=== PATIENT | female | born 1940 | race Caucasian/White ===

== ENCOUNTER → 2016-11-06 | Outpatient (CLI) | payer BC ==
[~2016-11-06] MED LIST: BONE PO; CAT PO; FORMULA 303 PO; HYG25 PO; JOINT EFFORT PO; LEVO50TA PO; MENT4GEL EXT; PUMP1CAP PO; TURM1POW PO; [UNRECOGNIZED DRUG - OTHER] PO
[2016-11-06 18:42] LABS: BLOOD UREA NITROGEN 19 mg/dl (7-18); CALCIUM 9.3 mg/dl (8.5-10.1); CARBON DIOXIDE 32 mmol/L (21-32); CHLORIDE 97 mmol/L (98-107); CREATININE 0.65 mg/dl (0.60-1.20); GLUCOSE 97 mg/dl (70-99); POTASSIUM 3.6 mmol/L (3.5-5.1); SODIUM 134 mmol/L (136-145)
[2016-11-06 18:53] LABS: CHOLESTEROL 242 mg/dl (0-200); CHOLESTEROL/HDL RATIO 3.2; HDL CHOLESTEROL 76 mg/dl; LDL CHOLESTEROL CALCULATED 138 mg/dl; TRIGLYCERIDES 139 mg/dl (0-150); VERY LOW DENSITY LIPOPROT CALC 28 mg/dl
== END | disposition home or self-care (01) ==
LOC: C.LABPVFM 15:43
PROVIDERS: ATTEND Nurse Practitioner
DX: I10 Essential (primary) hypertension (principal); E03.9 Hypothyroidism, unspecified; E78.5 Hyperlipidemia, unspecified

== ENCOUNTER → 2017-04-15 | Outpatient (CLI) | payer BC ==
--- NOTE | 2017-04-16 13:55 | MAMMOGRAPHY REPORT ---
BILATERAL DIGITAL SCREENING MAMMOGRAM WITH CAD: 04/15/2017 CLINICAL HISTORY: Routine screening. Patient has no complaints. TECHNIQUE: Current study was also evaluated with a Computer Aided Detection (CAD) system. COMPARISON: Comparison is made to exams dated: 04/14/2016 mammogram, 03/15/2015 mammogram, 02/03/2014 ma mmogram, 02/02/2013 mammogram, 01/26/2012 mammogram, and 01/22/2011 mammogram - [facility] nter. BREAST COMPOSITION: The tissue of both breasts is heterogeneously dense, which may obscure small mas ses. FINDINGS: No suspicious masses, calcifications, or areas of architectural distortion are noted in ei ther breast. There has been no significant interval change compared to prior exams. Bilateral benign -appearing calcifications are not significantly changed. Asymmetry in the right medial breast middle depth on the CC view is similar to prior exams including the 2008 exam, and considered benign given long-term stability. IMPRESSION: ACR BI-RADS CATEGORY 2: BENIGN There is no mammographic evidence of malignancy. A 1 year screening mammogram is recommended. The pa tient will receive written notification of the results. Approximately 10% of breast cancers are not detected with mammography. A negative mammographic report should not delay biopsy if a clinically suggestive mass is present. Paula Mensah M.D. ah/:04/15/2017 15:01:13 Engineer Technician: Samaria LOVE(Vini)(Ting)(BD), [facility] letter sent: Normal 1/2 BI-RADS Code: ACR BI-RADS Category 2: Benign
== END | disposition home or self-care (01) ==
LOC: C.MAMM 14:27
PROVIDERS: ATTEND Nurse Practitioner
DX: Z12.31 Encounter for screening mammogram for malignant neoplasm of breast (principal)

== ENCOUNTER → 2017-06-08 | Outpatient (CLI) | payer BC ==
[2017-06-08 17:48] LABS: BLOOD UREA NITROGEN 14 mg/dl (7-18); BUN/CREATININE RATIO 22.8 (10-20); CALCIUM 8.9 mg/dl (8.5-10.1); CARBON DIOXIDE 31 mmol/L (21-32); CHLORIDE 95 mmol/L (98-107); GLUCOSE 105 mg/dl (70-99); POTASSIUM 3.3 mmol/L (3.5-5.1); SODIUM 131 mmol/L (136-145)
== END | disposition home or self-care (01) ==
LOC: C.LABPVFM 14:39
PROVIDERS: ATTEND Nurse Practitioner
DX: E87.6 Hypokalemia (principal)

== ENCOUNTER → 2017-06-30 | Outpatient (CLI) | payer BC ==
[2017-06-30 17:47] LABS: BLOOD UREA NITROGEN 16 mg/dl (7-18); CALCIUM 9.3 mg/dl (8.5-10.1); CARBON DIOXIDE 31 mmol/L (21-32); CREATININE 0.56 mg/dl (0.60-1.20); GLUCOSE 104 mg/dl (70-99); POTASSIUM 3.5 mmol/L (3.5-5.1); SODIUM 128 mmol/L (136-145)
== END | disposition home or self-care (01) ==
LOC: C.LABPVFM 14:40
PROVIDERS: ATTEND Nurse Practitioner
DX: E87.6 Hypokalemia (principal); E87.1 Hypo-osmolality and hyponatremia

== ENCOUNTER → 2017-09-21 | Outpatient (CLI) | payer BC ==
[2017-09-21 18:23] LABS: BLOOD UREA NITROGEN 12 mg/dl (7-18); CALCIUM 9.1 mg/dl (8.5-10.1); CARBON DIOXIDE 31 mmol/L (21-32); GLUCOSE 98 mg/dl (70-99); POTASSIUM 3.5 mmol/L (3.5-5.1); SODIUM 130 mmol/L (136-145)
== END | disposition home or self-care (01) ==
LOC: C.LABPVFM 14:49
PROVIDERS: ATTEND Nurse Practitioner
DX: E87.1 Hypo-osmolality and hyponatremia (principal)

== ENCOUNTER → 2017-12-01 | Outpatient (CLI) | payer BC ==
[2017-12-01 17:55] LABS: BLOOD UREA NITROGEN 14 mg/dl (7-18); CARBON DIOXIDE 31 mmol/L (21-32); CREATININE 0.62 mg/dl (0.60-1.20); GLUCOSE 99 mg/dl (70-99); POTASSIUM 3.7 mmol/L (3.5-5.1); SODIUM 133 mmol/L (136-145)
== END | disposition home or self-care (01) ==
LOC: C.LABPVFM 15:02
PROVIDERS: ATTEND Nurse Practitioner
DX: I10 Essential (primary) hypertension (principal); E87.1 Hypo-osmolality and hyponatremia

== ENCOUNTER 2019-11-10 18:42 | Inpatient (IN) ==
--- NOTE | 2019-11-10 19:25 | Emergency Department Note ---
Impression & Plan CHF (congestive heart failure), Hyponatremia, Elevated troponin, Elevated brain natriuretic peptide (BNP) level, Complete left bundle branch block, Hypokalemia, Hypomagnesemia ED Provider Note NAME: BRANDEE MELVIN AGE: 78 SEX: F ARRIVES VIA: Walk-In INFORMANT: Patient, ED PROVIDER(S): Ba Ngo MD CHIEF COMPLAINT: Shortness of breath PLAN: Disposition: Admit MEDICAL DECISION MAKING: The patient is a pleasant 78-year-old woman with a past medical history of hypertension, hypothyroidism who presents emergency department with worsening shortness of breath over the past several days in the setting of feeling as though her legs are more swollen. The patient denies any recent new cough or congestion but does report chronic nasal congestion and postnasal drip since having her flu immunization in April. She denies any travel to high risk areas or contact with known individuals diagnosed with COVID-19. She denies any chest pain. Denies nausea vomiting. She does report some improving loose s tools which occurred after completing a course of amoxicillin for her sinuses. On arrival the patient is in no acute distress, afebrile stable vital signs. She has scant bilateral lower extremity edema. Calves are nontender bilaterally. EKG demonstrates a left bundle branch block with a QRS of 130, no Sgarbossa Criteria, which appears new and has progressed since September 13, 2019 when she did have some conduction delay with a QRS of 112. Chest x-ray demonstrates mild cardiomegaly with mild congestive failure and small bilateral pleural effusions. WBC within normal limits. H/H 11.5/31.5 decreased from previous value values on September 13, 2019 of 13.1/37.7 likely related to component of volume overload. Platelets 425, nonspecific and likely reactive. Sodium 120 which does appear new for the patient. Serum and urine osmole's were ordered and pending however suspect component of hypervolemic hyponatremia. Potassium 3.1 with repletion provided. Magnesium 1.7 with repletion provided. Check lites and LFTs otherwise unremarkable. Patient's troponin is elevated at 0.067 without prior values for comparison. BNP 8600 without prior values for comparison. Symptoms suggestive of new CHF. Patient was ordered Aspirin as well as for Lasix to help with symptoms of dyspnea. Case was discussed with Dr. Tadeo, [facility] admitting resident with Dr. Viramontes, [facility] hospitalist, who will evaluate the patient for admission. Triage Nursing notes reviewed and agree them. Prior medical records reviewed Vital Signs: reviewed and remarkable for no significant abnormalities Differential diagnosis: Reactive airway disease, pneumonia, pneumothorax, COPD, CHF, infections, cardiac ischemia, pulmonary embolism, musculoskeletal, gastrointestinal, as well as other pathologies. ER treatment provided: See below Diagnostics interpreted by me: ECG: Sinus rhythm with sinus arrhythmia, 99 bpm, no ectopy. Left bundle branch block with a QRS of 130, no Sgarbossa Criteria, which appears new and has progressed since September 13, 2019 when she did have some conduction delay with a QRS of 112. Cardiac Monitoring: An order for continuous cardiac monitoring was placed and demonstrated sinus rhythm with sinus arrhythmia, 99 bpm, no ectopy. Laboratory studies: See below Imaging studies: XR chest 1V portable CLINICAL HISTORY: Chest Pain dyspnea COMPARISON STUDY: 09/13/2019 FINDINGS: Mild cardiomegaly. Components of congestive heart failure. Small bilateral pleural effusions. Thoracic scoliosis. Severe degenerative change of the shoulders bilaterally. IMPRESSION: Congestive heart failure. Small bilateral pleural effusions. Consultation(s): Case was discussed with Dr. Tadeo, [facility] admitting resident with Dr. Viramontes, [facility] hospitalist, who will evaluate the patient for admission. HPI: The patient is a pleasant 78-year-old woman with a past medical history of hypertension, hypothyroidism who presents emergency department with worsening shortness of breath over the past several days in the setting of feeling as though her legs are more swollen. The patient denies any recent new cough or congestion but does report chronic nasal congestion and postnasal drip since having her flu immunization in April. She denies any travel to high risk areas or contact with known individuals diagnosed with COVID-19. She denies any chest pain. Denies nausea vomiting. She does report some improving loose stools which occurred after completing a course of amoxicillin for her sinuses. O ROS: See above HPI for pertinent positives & negatives. A total of 10 systems reviewed and were otherwise negative. PAST MEDICAL HISTORY:See Below PAST SURGICAL HISTORY:See Below FAMILY HISTORY:See Below SOCIAL HISTORY:See Below HOME MEDICATIONS:See Below ALLERGIES:See Below VITALS:See Below PHYSICAL EXAMINATION: GENERAL: Awake, alert, fatigued-appearing, in no distress HENT: Normocephalic, atraumatic. Oropharynx with dry mucous membranes and otherwise unremarkable. EYES: Normal conjunctiva. Sclera non-icteric. NECK: Supple. No nuchal rigidity. FROM. Mild JVD. RESPIRATORY: Mildly dyspneic but normal work of breathing. Diminished breath sounds at the bases and otherwise clear to auscultation bilaterally. CARDIAC: Regular rate, normal rhythm. Extremities warm and well perfused. Pulses equal. ABDOMEN: Soft, non-distended. No tenderness to palpation. No rebound or guarding. No masses. RECTAL: Deferred. MUSCULOSKELETAL: Chest examination reveals no tenderness. The back is symmetrical on inspection without obvious abnormality. There is no CVA tenderness to palpation. No joint edema. LOWER EXTREMITIES: Calves are equal size bilaterally and non-tender. Scant BLE edema. No discoloration. NEURO: Normal sensorium. No sensory or motor deficits noted. SKIN: No rash or jaundice noted. ED COURSE: Critical Care: I have personally spent greater than 35 minutes of critical care time in the direct management of this patient. This includes bedside care, interpretation of diagnostic studies, and testing, discussion with consultants, patient, and family members, and other required patient management activities. This 35 minutes is in excess of all separately billable procedures. Ba Ngo MD Past Med/Surg History Medical History Anterior dislocation of lens, left eye (Resolved) scheduled for lens exchange and Re fixation of a lens in the left eye (scheduled 09/22/19, Dr. Chilel, [facility]) Hypertension Hyponatremia chronic, baseline sodium low 130's- PCP aware/feel related to chlorthalidone and supplements but d/t multiple allergies will continue with chlorthalidone and monitor hyponatremia Osteoarthritis Personal history of poliomyelitis age 12 Urinary incontinence Surgical History History of cataract surgery left Hx of eye surgery to have eye surgery for lens replacement on 09/22/[address] [facility]. 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 Beliefs That Will Affect Care: None marital status: Single Current Living Situation: Family current occupational status: retired Feels Safe at Home: Yes Safety Concerns: Feels Safe At This Time Smoking Status: Never smoker Second Hand Exposure: No ; Hx Alcohol Use: No Hx Substance Use: No caffeine: Yes Dental Care, Regularly: Yes Physical Activity Frequency: Does not Exercise Seatbelt Use: always Sunscreen Use: No Allergies Allergies Allergy/AdvReac Type Severity Reaction Status Date / Time acetaminophen Allergy Unknown DIZZINESS/D Verified 11/10/19 19:42 IAPHORETIC amlodipine Allergy Unknown SWOLLEN Verified 11/10/19 19:42 LEGS clonidine Allergy Unknown "VARIETY Verified 11/10/19 19:42 OF COMPLICATIONS" latex Allergy Unknown RASH Verified 11/10/19 19:42 losartan Allergy Unknown "MULTIPLE Verified 11/10/19 19:42 PROBLEMS" spironolactone Allergy Unknown "MULTIPE Verified 11/10/19 19:42 PROBLEMS", COULD NOT TOLERATE terazosin Allergy Unknown SWOLLEN Verified 11/10/19 19:42 LEGS hydrochlorothiazide AdvReac Unknown "COULD NOT Verified 11/10/19 19:42 TOLERATE" metoprolol AdvReac Unknown COULD NOT Verified 11/10/19 19:42 TOLERATE Sulfa (Sulfonamide AdvReac Unknown "COULD NOT Verified 11/10/19 19:42 Antibiotics) TOLERATE" Home Meds Home Medications Medication Instructions Recorded Confirmed calcium-vits R7-R-S3-minerals 2 tab PO BID 09/12/19 11/10/19 [Bone Essentials] cannabidiol 15 mg PO DAILY PRN 09/12/19 11/10/19 [id number] 1 drp OPHTHALMIC (EYE) UD PRN 09/12/19 11/10/19 [Refresh Optive Advanced] levothyroxine [Synthroid] 75 mcg PO HS 09/12/19 11/10/19 lutein-zeaxanthin 1 cap PO DAILY 09/12/19 11/10/19 phenylephrine-acetaminophen [Sinus 1 tab PO UD PRN 09/12/19 11/10/19 Relief (Non-Drowsy)] cranberry 1 tab PO DAILY 09/13/19 11/10/19 selenium 1 tab PO DAILY 09/13/19 11/10/19 Cold Eeze Tramaine 1 tramaine PO UD PRN 11/10/19 11/10/19 biotin 0 mg PO DAILY 11/10/19 11/10/19 chlorthalidone 25 mg PO BID 11/10/19 11/10/19 potassium chloride 10 meq PO DAILY 11/10/19 11/10/19 Previous Rx's Medication Instructions Recorded amoxicillin 500 mg tablet 2,000 mg PO ONCE PRN #4 tab 05/09/19 walker #1 ea 05/10/19 Results & Data (ED) Vital Signs Vital Signs - 24 hr 11/10/19 18:45 11/10/19 19:35 11/10/19 19:37 Temperature 36.7 C Temperature Source Oral Pulse Rate 108 H 96 H Pulse Rate from SpO2 Sensor 96 H Pulse Rhythm Regular Pulse Strength Normal Respiratory Rate 20 21 Respiratory Effort / Characteristics Short of Breath Non-Labored Respiratory Depth Normal Normal Respiratory Pattern Regular Regular Blood Pressure 168/94 H 145/90 H Blood Pressure Mean 118 109 Blood Pressure Position Sitting Pulse Oximetry 94 95 94 Oxygen Delivery Method Room Air Room Air Room Air Sepsis Recent Fever Within 48 Hours No Sepsis Action Taken by Nursing No Action Required 11/10/19 19:39 11/10/19 20:00 11/10/19 20:01 Temperature Temperature Source Pulse Rate 96 H 96 H Pulse Rate from SpO2 Sensor 98 H 98 H Pulse Rhythm Pulse Strength Respiratory Rate 22 22 Respiratory Effort / Characteristics Respiratory Depth Respiratory Pattern Blood Pressure 119/95 Blood Pressure Mean 102 Blood Pressure Position Pulse Oximetry 94 96 96 Oxygen Delivery Method Room Air Room Air Sepsis Recent Fever Within 48 Hours Sepsis Action Taken by Nursing 11/10/19 20:30 11/10/19 21:00 11/10/19 21:30 Temperature Temperature Source Pulse Rate 107 H 99 H 95 H Pulse Rate from SpO2 Sensor 97 H Pulse Rhythm Pulse Strength Respiratory Rate 20 27 H 24 Respiratory Effort / Characteristics Respiratory Depth Respiratory Pattern Blood Pressure 148/100 H 169/112 H 163/100 H Blood Pressure Mean 124 118 111 Blood Pressure Position Pulse Oximetry 93 92 94 Oxygen Delivery Method Room Air Room Air Room Air Sepsis Recent Fever Within 48 Hours Sepsis Action Taken by Nursing 11/10/19 22:00 Temperature Temperature Source Pulse Rate 94 H Pulse Rate from SpO2 Sensor 94 H Pulse Rhythm Pulse Strength Respiratory Rate 22 Respiratory Effort / Characteristics Respiratory Depth Respiratory Pattern Blood Pressure 154/100 H Blood Pressure Mean 126 Blood Pressure Position Pulse Oximetry 95 Oxygen Delivery Method Room Air Sepsis Recent Fever Within 48 Hours Sepsis Action Taken by Nursing Laboratory Data Attestation: I reviewed the patient's lab results. Result diagrams: 11/10/19 19:23 11/10/19 19:23 Lab Results 11/10/19 11/10/19 11/10/19 Range/Units 19:23 19:23 19:23 WBC 5.34 (4.8-10.8) K/uL RBC 3.72 L (4.2-5.4) M/uL Hgb 11.5 L (12.0-16.0) g/dL Hct 31.5 L (37-47) % MCV 84.7 (80-100) fL MCH 30.9 (25-34) pg MCHC 36.5 H (32-36) g/dL RDW Std Deviation 40.1 (36.4-46.3) fL RDW Coeff of Bairon 13.1 (11.5-14.5) % Plt Count 425 H (130-400) K/uL MPV 9.5 (7.4-10.4) fL Immature Gran % (Auto) 0.2 % Neut % (Auto) 79.1 % Lymph % (Auto) 10.7 % Jennings % (Auto) 9.2 % Eos % (Auto) 0.6 % Baso % (Auto) 0.2 % Immature Gran # (Auto) 0.01 (0.00-0.02) K/uL Neut # (Auto) 4.23 (1.4-6.5) K/uL Lymph # (Auto) 0.57 L (1.2-3.4) K/uL Jennings # (Auto) 0.49 (0.11-0.59) K/uL Eos # (Auto) 0.03 (0-0.5) K/uL Baso # (Auto) 0.01 (0-0.2) K/uL PT 11.4 (9.0-12.0) Seconds INR 1.1 (0.9-1.1) APTT 26.5 (21.0-31.0) Seconds PTT Ratio 0.9 Sodium 120 L (136-145) mmol/L Potassium 3.1 L (3.5-5.1) mmol/L Chloride 84 L (98-107) mmol/L Carbon Dioxide 24 (21-32) mmol/L Anion Gap 12.0 H (3-11) BUN 14 (7-18) mg/dl Creatinine 0.45 L (0.6-1.2) mg/dl Est Cr Clr Drug Dosing Not Reportable Est GFR ( Amer) 112.0 Est GFR (Non-Af Amer) 96.7 BUN/Creatinine Ratio 31.3 H (10-20) Glucose 116 H (70-99) mg/dl Osmolality (280-300) mOsm/kg Calcium 8.9 (8.5-10.1) mg/dl Phosphorus 3.2 (2.5-4.9) mg/dl Magnesium 1.7 L (1.8-2.4) mg/dl Total Bilirubin 0.3 (0.2-1) mg/dl AST 28 (15-37) U/L ALT 29 (12-78) U/L Alkaline Phosphatase 72 (45-117) U/L Troponin I 0.067 H* (0-0.045) ng/ml NT-Pro-B Natriuret Pep 8696 H (0-1800) pg/ml Total Protein 6.6 (6.4-8.2) gm/dl Albumin 2.9 L (3.4-5.0) gm/dl Globulin 3.7 (2.5-4.0) gm/dl Albumin/Globulin Ratio 0.8 L (0.9-2) Lipase 52 L (73-393) U/L TSH 4.880 H (0.300-4.500) uIu/ml Free T4 2.03 H (0.8-1.6) ng/dl Urine Color Urine Appearance (Clear) Urine pH (4.5-7.5) Ur Specific [place] (1.000-1.030) Urine Protein (Negative) Urine Glucose (UA) (Negative) Urine Ketones (Negative) Urine Blood (Negative) Urine Nitrite (Negative) Urine Bilirubin (Negative) Urine Urobilinogen (Negative) Ur Leukocyte Esterase (Negative) Urine WBC (Auto) (0-5) /hpf Urine RBC (Auto) (0-4) /hpf U Hyaline Cast (Auto) (0-5) /lpf U Epithel Cells (Auto) (0-5) /lpf Urine Bacteria (Auto) (Negative) Urine Osmolality (500-800) mOsm/kg Ur Random Sodium mmol/L 11/10/19 11/10/19 11/10/19 Range/Units 19:38 20:41 20:41 WBC (4.8-10.8) K/uL RBC (4.2-5.4) M/uL Hgb (12.0-16.0) g/dL Hct (37-47) % MCV (80-100) fL MCH (25-34) pg MCHC (32-36) g/dL RDW Std Deviation (36.4-46.3) fL RDW Coeff of Bairon (11.5-14.5) % Plt Count (130-400) K/uL MPV (7.4-10.4) fL Immature Gran % (Auto) % Neut % (Auto) % Lymph % (Auto) % Jennings % (Auto) % Eos % (Auto) % Baso % (Auto) % Immature Gran # (Auto) (0.00-0.02) K/uL Neut # (Auto) (1.4-6.5) K/uL Lymph # (Auto) (1.2-3.4) K/uL Jennings # (Auto) (0.11-0.59) K/uL Eos # (Auto) (0-0.5) K/uL Baso # (Auto) (0-0.2) K/uL PT (9.0-12.0) Seconds INR (0.9-1.1) APTT (21.0-31.0) Seconds PTT Ratio Sodium (136-145) mmol/L Potassium (3.5-5.1) mmol/L Chloride (98-107) mmol/L Carbon Dioxide (21-32) mmol/L Anion Gap (3-11) BUN (7-18) mg/dl Creatinine (0.6-1.2) mg/dl Est Cr Clr Drug Dosing Est GFR ( Amer) Est GFR (Non-Af Amer) BUN/Creatinine Ratio (10-20) Glucose (70-99) mg/dl Osmolality 252 L (280-300) mOsm/kg Calcium (8.5-10.1) mg/dl Phosphorus (2.5-4.9) mg/dl Magnesium (1.8-2.4) mg/dl Total Bilirubin (0.2-1) mg/dl AST (15-37) U/L ALT (12-78) U/L Alkaline Phosphatase (45-117) U/L Troponin I (0-0.045) ng/ml NT-Pro-B Natriuret Pep (0-1800) pg/ml Total Protein (6.4-8.2) gm/dl Albumin (3.4-5.0) gm/dl Globulin (2.5-4.0) gm/dl Albumin/Globulin Ratio (0.9-2) Lipase (73-393) U/L TSH (0.300-4.500) uIu/ml Free T4 (0.8-1.6) ng/dl Urine Color Yellow Urine Appearance Cloudy A (Clear) Urine pH 8.0 H (4.5-7.5) Ur Specific [place] 1.013 (1.000-1.030) Urine Protein Negative (Negative) Urine Glucose (UA) Negative (Negative) Urine Ketones Negative (Negative) Urine Blood Negative (Negative) Urine Nitrite Negative (Negative) Urine Bilirubin Negative (Negative) Urine Urobilinogen Negative (Negative) Ur Leukocyte Esterase Negative (Negative) Urine WBC (Auto) 1-5 (0-5) /hpf Urine RBC (Auto) 0-4 (0-4) /hpf U Hyaline Cast (Auto) 1-5 (0-5) /lpf U Epithel Cells (Auto) 10-20 H (0-5) /lpf Urine Bacteria (Auto) Negative (Negative) Urine Osmolality 278 L (500-800) mOsm/kg Ur Random Sodium mmol/L 04/30/20 Range/Units 20:41 WBC (4.8-10.8) K/uL RBC (4.2-5.4) M/uL Hgb (12.0-16.0) g/dL Hct (37-47) % MCV (80-100) fL MCH (25-34) pg MCHC (32-36) g/dL RDW Std Deviation (36.4-46.3) fL RDW Coeff of Bairon (11.5-14.5) % Plt Count (130-400) K/uL MPV (7.4-10.4) fL Immature Gran % (Auto) % Neut % (Auto) % Lymph % (Auto) % Jennings % (Auto) % Eos % (Auto) % Baso % (Auto) % Immature Gran # (Auto) (0.00-0.02) K/uL Neut # (Auto) (1.4-6.5) K/uL Lymph # (Auto) (1.2-3.4) K/uL Jennings # (Auto) (0.11-0.59) K/uL Eos # (Auto) (0-0.5) K/uL Baso # (Auto) (0-0.2) K/uL PT (9.0-12.0) Seconds INR (0.9-1.1) APTT (21.0-31.0) Seconds PTT Ratio Sodium (136-145) mmol/L Potassium (3.5-5.1) mmol/L Chloride (98-107) mmol/L Carbon Dioxide (21-32) mmol/L Anion Gap (3-11) BUN (7-18) mg/dl Creatinine (0.6-1.2) mg/dl Est Cr Clr Drug Dosing Est GFR ( Amer) Est GFR (Non-Af Amer) BUN/Creatinine Ratio (10-20) Glucose (70-99) mg/dl Osmolality (280-300) mOsm/kg Calcium (8.5-10.1) mg/dl Phosphorus (2.5-4.9) mg/dl Magnesium (1.8-2.4) mg/dl Total Bilirubin (0.2-1) mg/dl AST (15-37) U/L ALT (12-78) U/L Alkaline Phosphatase (45-117) U/L Troponin I (0-0.045) ng/ml NT-Pro-B Natriuret Pep (0-1800) pg/ml Total Protein (6.4-8.2) gm/dl Albumin (3.4-5.0) gm/dl Globulin (2.5-4.0) gm/dl Albumin/Globulin Ratio (0.9-2) Lipase (73-393) U/L TSH (0.300-4.500) uIu/ml Free T4 (0.8-1.6) ng/dl Urine Color Urine Appearance (Clear) Urine pH (4.5-7.5) Ur Specific [place] (1.000-1.030) Urine Protein (Negative) Urine Glucose (UA) (Negative) Urine Ketones (Negative) Urine Blood (Negative) Urine Nitrite (Negative) Urine Bilirubin (Negative) Urine Urobilinogen (Negative) Ur Leukocyte Esterase (Negative) Urine WBC (Auto) (0-5) /hpf Urine RBC (Auto) (0-4) /hpf U Hyaline Cast (Auto) (0-5) /lpf U Epithel Cells (Auto) (0-5) /lpf Urine Bacteria (Auto) (Negative) Urine Osmolality (500-800) mOsm/kg Ur Random Sodium 29 mmol/L Administered Medications Magnesium Oxide (Mag-Ox) 400 mg PO BID AYO Stop: 12/10/19 23:44 Last Admin: 11/11/19 00:38 Dose: 400 mg Documented by: [id number] Discontinued Medications Aspirin (Aspirin) 324 mg PO NOW STA Stop: 11/10/19 20:40 Last Admin: 11/10/19 21:02 Dose: 324 mg Documented by: [id number] Furosemide (Lasix) 20 mg IV NOW STA Stop: 11/10/19 20:44 Last Admin: 11/10/19 22:17 Dose: 20 mg Documented by: [id number] Potassium Chloride (K Randall / Wtr) 10 meq in 100 mls @ 100 mls/hr IV Q1H AYO Stop: 11/10/19 22:44 Last Infusion: 11/10/19 23:10 Dose: 0 mls/hr Documented by: [id number] Admin: 11/10/19 22:02 Dose: 100 mls/hr Documented by: [id number] Infusion: 11/10/19 22:01 Dose: 0 mls/hr Documented by: [id number] Admin: 11/10/19 21:05 Dose: 100 mls/hr Documented by: [id number] Magnesium Sulfate/Dextrose (Magnesium Sulfate / D5w) 1 gm in 100 mls @ 100 mls/hr IV Q1H AYO Stop: 11/10/19 22:44 Last Infusion: 11/10/19 23:10 Dose: 0 mls/hr Documented by: [id number] Admin: 11/10/19 22:03 Dose: 100 mls/hr Documented by: [id number] Infusion: 11/10/19 22:02 Dose: 0 mls/hr Documented by: [id number] Admin: 11/10/19 21:05 Dose: 100 mls/hr Documented by: [id number] Furosemide 40 mg/ Syringe 4 mls @ 4 mls/min IV NOW STA Stop: 11/10/19 23:35 Last Admin: 11/11/19 00:38 Dose: 4 mls/min Documented by: [id number] Lorazepam (Ativan) 0.5 mg PO NOW STA Stop: 11/11/19 01:05 Last Admin: 11/11/19 01:45 Dose: 0.5 mg Documented by: [id number] Lorazepam (Ativan) Confirm Administered Dose 0.5 mg .ROUTE .STK-MED ONE Stop: 11/11/19 01:15 Last Admin: 11/11/19 01:44 Dose: Not Given Documented by: [id number] Potassium Chloride (Klor-Con M20) 40 meq PO NOW STA Stop: 11/10/19 20:40 Last Admin: 11/10/19 21:02 Dose: 40 meq Documented by: [id number] Potassium Chloride (Klor-Con M20) 20 meq PO NOW STA Stop: 11/10/19 23:59 Last Admin: 11/11/19 00:38 Dose: 20 meq Documented by: [id number] Blood Pressure Blood Pressure Findings: Normal blood pressure Discharge Plan Visit Data *Final* Discharge Date/Time: 11/10/19 22:23 Chief Complaint: Shortness of Breath/Dyspnea Stated Complaint: sob, headaches ED Provider: Ba Ngo Discharge Problem: CHF (congestive heart failure), Hyponatremia, Elevated troponin, Elevated brain natriuretic peptide (BNP) level, Complete left bundle branch block, Hypokalemia, Hypomagnesemia Patient Disposition: Admitted As Inpatient Discharge Instructions Interventions: ED Discharge Assessment Last Done: 11/10/19 22:23 Discharge Problem: CHF (congestive heart failure) Qualifiers: Heart failure type: unspecified Heart failure chronicity: acute Qualified Code(s): I50.9 - Heart failure, unspecified
[2019-11-10 19:42] LABS: Basophils # (auto) 0.01 K/uL (0-0.2); Basophils % (auto) 0.2 %; Eosinophils # (auto) 0.03 K/uL (0-0.5); Eosinophils % (auto) 0.6 %; Hematocrit (blood only) 31.5 % (37-47); Hemoglobin 11.5 g/dL (12.0-16.0); Immature Granulocytes # (auto) 0.01 K/uL (0.00-0.02); Immature Granulocytes % (auto) 0.2 %; Lymphocytes # (auto) 0.57 K/uL (1.2-3.4); Lymphocytes % (auto) 10.7 %; Mean Corpuscular Hemoglobin 30.9 pg (25-34); Mean Corpuscular Hgb Conc 36.5 g/dL (32-36); Mean Corpuscular Volume 84.7 fL (80-100); Mean Platelet Volume 9.5 fL (7.4-10.4); Monocytes # (auto) 0.49 K/uL (0.11-0.59); Monocytes % (auto) 9.2 %; Neutrophils # (auto) 4.23 K/uL (1.4-6.5); Neutrophils % (auto) 79.1 %; Platelet Count 425 K/uL (130-400); RDW Coefficient of Variation 13.1 % (11.5-14.5); RDW Standard Deviation 40.1 fL (36.4-46.3); Red Blood Count 3.72 M/uL (4.2-5.4); White Blood Count 5.34 K/uL (4.8-10.8)
[2019-11-10 19:52] LABS: INR 1.1 (0.9-1.1); Partial Thromboplastin Ratio 0.9; Partial Thromboplastin Time 26.5 Seconds (21.0-31.0); Prothrombin Time 11.4 Seconds (9.0-12.0)
--- NOTE | 2019-11-10 20:10 | XRay Report ---
XR chest 1V portable CLINICAL HISTORY: Chest Pain dyspnea COMPARISON STUDY: 09/13/2019 FINDINGS: Mild cardiomegaly. Components of congestive heart failure. Small bilateral pleural effusion s. Thoracic scoliosis. Severe degenerative change of the shoulders bilaterally. IMPRESSION: Congestive heart failure. Small bilateral pleural effusions. ACT 112: Negative or not required by law. The above report was generated using voice recognition software. It may contain grammatical, syntax or spelling errors. Electronically signed by: Christian English M.D. 11/10/2019 8:09 PM
[2019-11-10 20:19] LABS: Alanine Aminotransferase 29 U/L (12-78); Albumin Globulin Ratio 0.8 (0.9-2); Albumin Level 2.9 gm/dl (3.4-5.0); Alkaline Phosphatase 72 U/L (45-117); Aspartate Aminotransferase 28 U/L (15-37); BUN Creatinine Ratio 31.3 (10-20); Bilirubin,Total 0.3 mg/dl (0.2-1); Blood Urea Nitrogen 14 mg/dl (7-18); Calcium 8.9 mg/dl (8.5-10.1); Carbon Dioxide 24 mmol/L (21-32); Chloride 84 mmol/L (98-107); Est GFR (Non-African American) 96.7; Globulin 3.7 gm/dl (2.5-4.0); Glucose 116 mg/dl (70-99); Lipase 52 U/L (73-393); Magnesium 1.7 mg/dl (1.8-2.4); NT Pro B Type Natriuretic Pept 8696 pg/ml (0-1800); Phosphorus 3.2 mg/dl (2.5-4.9); Potassium 3.1 mmol/L (3.5-5.1); Sodium 120 mmol/L (136-145); Total Protein 6.6 gm/dl (6.4-8.2); Troponin I 0.067 ng/ml (0-0.045)
[2019-11-10] MEDS ORDERED: POTASSIUM CHLORIDE 20 MEQ TABCR PO STA ×2 (20:39→23:58)
[2019-11-10] MEDS ORDERED: ASPIRIN CHEW 324 MG PO STA (20:39)
[2019-11-10 20:40] LABS: T4 Free Thyroxine 2.03 ng/dl (0.8-1.6)
[2019-11-10] MEDS ORDERED: FUROSEMIDE 40 MG/4 ML VIAL IV STA (20:43)
[2019-11-10 20:49] LABS: Appearance Urine Cloudy (Clear); Bacteria Urine Automated Negative (Negative); Bilirubin Urine Negative (Negative); Blood Urine Negative (Negative); Color Urine Yellow; Glucose Urine UA Negative (Negative); Ketones Urine Negative (Negative); Leukocyte Esterase Urine Negative (Negative); Nitrite Urine Negative (Negative); Protein Urine Negative (Negative); RBC Urine Automated 0-4 /hpf (0-4); Specific Gravity Urine 1.013 (1.000-1.030); Urobilinogen Urine Negative (Negative)
--- NOTE | 2019-11-10 21:03 | History & Physical Report ---
Date of Service November 10, 2019 Assessment & Plan (1) CHF (congestive heart failure): Elin Qureshi is a 78 year old woman with a past medical history significant for hypertension and Hypothyroidism. CHF Patient appears to be having a CHF exacerbation with orthopnea, lower limb edema, and worsening shortness of breath Patient has no known history of CHF but does have a history of HTN and had an ECG last month showing that she had possibly had a new VT Troponin mildly elevated to .067 BNP 8696 aortic ejection murmur appreciated on exam 4+ bilateral pitting edema Received 60 meq K in ED, 1 gram magnesium and 20 mg of lasix Will give 40 more of lasix now while continuing to supplement mag and K and ordered for BID tomorrow Echo in AM cardiology consulted Patient is an added challenge when it comes time for nursing home management because despite attempting most first line antihypertensives the only medication she has been able to tolerate for blood pressure is chlorthalidone Possible VT Minimally elevated troponin but LBBB Will continue to monitor troponin q6h and follow closely Patient asymptomatic with no chest pain, but does have heart failure symptoms and appears to have had silent VT in past Hyponatremia Likely secondary to fluid overload from CHF Will place on fluid restriction 1500 ml diurese and continue to monitor She does have chronic hyponatremia with baseline around 30 previously Chlorthalidone could be playing a role in this as well. Hypokalemia Continuing to use lasix for diuresis so will need to continue to supplement potassium Giving 20 more overnight in addition to 60 received in ED Hypomagnesemia Given 1 gram in Ed will give additional gram overnight Tachypnea Likely secondary to dyspnea/orthopnea from CHF Legs are swollen but not tender, oxygenating well and not tachycardic and resp rate has slowed down since most recent lasix administration I feel that PE is less likely Hyperthyroidism in setting of hypothyroidism Patient has an elevated free T4 and an elevated TSH in setting of history of hypothyroidism on levothyroxine Should see a decreased TSH if taking too much levothyroxine unless feedback inhibition is altered. Could be cause of heart failure Will order MRI pituitary and U/S thyroid to further evaluate and hold levothyroxine next dose. DVT Ppx: Lovenox F/E/N: Heart healthy diet 1500 ml fluid restriction Dispo: Admit to PCU for evaluation of possible ischemic heart disease and CHF exacerbation, Will need education and close outpatient follow up on discharge for management of this likely chronic condition. (2) Hyponatremia: (3) Elevated troponin: (4) Elevated brain natriuretic peptide (BNP) level: (5) Complete left bundle branch block: (6) Hypokalemia: (7) Hypomagnesemia: (8) Hyperlipidemia: (9) Hypertension: History of Present Illness Chief Complaint: Shortness of breath Primary Care Provider: AV Morales Elin Qureshi is a augustus 78 year old woman with a past medical history significant for hypertension, hypothyroidism, torn rotator cuff and Polio as a child who is here today for worsening orthopnea and shortness of breath with leg swelling for past several days. Patient tells me she was having shortness of breath for past several days when she was lying down at night to sleep. She couldn't lie flat without becoming quite distressed. Today it has gotten even worse and is present even sitting up. She has also noticed quite a bit of lower limb edema. She says she's noted edema in the past but not to this extent. She called her pcp office who advised her to present to ED. Of note patient had a cardiac workup for a pre op appointment for her rotator cuff surgery and was found to have had evidence of a silent VT. She was supposed to follow up with cardiology but was never able to because of quarantine. She is adamant that all of her issues stem from getting the flu shot this fall. After getting her flu shot she notes nasal congestion that has been terrible and for which she's been on multiple decongestants and antibiotics without success. She thinks it has also played a role in these problems. On presentation to the emergency department patient's vitals were significant for HTN and tachypnea but she is oxygenating well on room air. She is afebrile denying any chest pain and endorsing progressive shortness of breath and leg swelling. She has had some exertional dyspnea as well but she has not been doing much active. Labwork is signficant for hyponatremia to 20, looking back at her previous labs this appears to down from a chronic hyponatremia with a baseline around 130., hypokalemic with potassium of 3.1 and hypochloremic with Cl of 84. urine osms pending. Troponin elevated to .067 BNP of 8696, albumin of 2.9, TSH and free T4 elevated. Serum and urine OSmole both low CXR showing CHF with small bilateral pleural effusions. Patient does not use any alcohol, does not smoke, no drug use but does use cannabandoid based pain medication. Lives at home with sister who brought her to hospital. Wishes to be DNR/DNI. Allergies Allergy/AdvReac Type Severity Reaction Status Date / Time acetaminophen Allergy Unknown DIZZINESS/D Verified 11/10/19 19:42 IAPHORETIC amlodipine Allergy Unknown SWOLLEN Verified 11/10/19 19:42 LEGS clonidine Allergy Unknown "VARIETY Verified 11/10/19 19:42 OF COMPLICATIONS" latex Allergy Unknown RASH Verified 11/10/19 19:42 losartan Allergy Unknown "MULTIPLE Verified 11/10/19 19:42 PROBLEMS" spironolactone Allergy Unknown "MULTIPE Verified 11/10/19 19:42 PROBLEMS", COULD NOT TOLERATE terazosin Allergy Unknown SWOLLEN Verified 11/10/19 19:42 LEGS hydrochlorothiazide AdvReac Unknown "COULD NOT Verified 11/10/19 19:42 TOLERATE" metoprolol AdvReac Unknown COULD NOT Verified 11/10/19 19:42 TOLERATE Sulfa (Sulfonamide AdvReac Unknown "COULD NOT Verified 11/10/19 19:42 Antibiotics) TOLERATE" Home Medications Home Medications Medication Instructions Recorded Confirmed Type amoxicillin 500 mg tablet 2,000 mg PO ONCE PRN #4 tab 05/09/19 11/10/19 Rx walker #1 ea 05/10/19 11/10/19 Rx calcium-vits A4-M-V0-minerals 2 tab PO BID 09/12/19 11/10/19 History [Bone Essentials] cannabidiol 15 mg PO DAILY PRN 09/12/19 11/10/19 History [id number] 1 drp OPHTHALMIC (EYE) UD PRN 09/12/19 11/10/19 History [Refresh Optive Advanced] levothyroxine [Synthroid] 75 mcg PO HS 09/12/19 11/10/19 History lutein-zeaxanthin 1 cap PO DAILY 09/12/19 11/10/19 History phenylephrine-acetaminophen [Sinus 1 tab PO UD PRN 09/12/19 11/10/19 History Relief (Non-Drowsy)] cranberry 1 tab PO DAILY 09/13/19 11/10/19 History selenium 1 tab PO DAILY 09/13/19 11/10/19 History Cold Eeze Tramaine 1 tramaine PO UD PRN 11/10/19 11/10/19 History biotin 0 mg PO DAILY 11/10/19 11/10/19 History chlorthalidone 25 mg PO BID 11/10/19 11/10/19 History potassium chloride 10 meq PO DAILY 11/10/19 11/10/19 History Past Med/Surg History Medical History Anterior dislocation of lens, left eye (Resolved) scheduled for lens exchange and Re fixation of a lens in the left eye (scheduled 09/22/19, Dr. Chilel, [facility]) Hypertension Hyponatremia chronic, baseline sodium low 130's- PCP aware/feel related to chlorthalidone and supplements but d/t multiple allergies will continue with chlorthalidone and monitor hyponatremia Osteoarthritis Personal history of poliomyelitis age 12 Urinary incontinence Surgical History History of cataract surgery left Hx of eye surgery to have eye surgery for lens replacement on 09/22/19 at [facility]. S/P hip replacement right Family History Father Myocardial infarction Other No family history of adverse response to anesthesia Denies family history of Ovarian cancer Prostate cancer Breast cancer Colorectal cancer Social History Preferred Language: Lao Communication Ability: Effective Access Assoc Required: No Beliefs That Will Affect Care: None marital status: Single Current Living Situation: Family current occupational status: retired Feels Safe at Home: Yes Safety Concerns: Feels Safe At This Time Smoking Status: Never smoker Second Hand Exposure: No ; Hx Alcohol Use: No Hx Substance Use: No caffeine: Yes Dental Care, Regularly: Yes Physical Activity Frequency: Does not Exercise Seatbelt Use: always Sunscreen Use: No Review of Systems Constitutional: + fatigue and + weight gain; no fever and no chills Eyes: no problem reported Ear, Nose, Mouth, Throat: + nasal congestion, + post nasal drip, + facial pain and + sinus pain/pressure Respiratory: + cough, + dyspnea and + dyspnea on exertion; no pain on inspiration and no pain with cough Cardiovascular: + dyspnea, + orthopnea and + edema; no chest pain Gastrointestinal: no abdominal pain, no nausea, no vomiting, no constipation and no diarrhea/loose stools Genitourinary: no dysuria Physical Exam Physical Exam: Constitutional: Ashley is resting comfortably in bed, she is afraid of catching cold for fear of catching a sinus infection. She does feel short of breath currently and she is breathing fast, however does not appear to be working hard to breathe. Eyes: Pupils equal round reactive to light and accommodation bilaterally, extraocular muscle movements intact bilaterally, anicteric sclerae ENMT: External appearance normal Respiratory: Patient taking shallow breaths, breath sounds reduced in all lung renteria, very faint crackles at bases Cardiovascular: Notable ejection murmur suspicious of aortic stenosis, regular rate regular rhythm. Gastrointestinal: Abdomen Soft/nontender, no masses Results & Data Results & Data ([facility]) Vital Signs (Past 12 Hours) Vital Signs Temp Pulse Resp BP Pulse Ox 11/10/19 20:01 96 H 22 96 11/10/19 20:00 96 H 22 119/95 96 11/10/19 19:39 94 11/10/19 19:37 94 11/10/19 19:35 96 H 21 145/90 H 95 11/10/19 18:45 36.7 C 108 H 20 168/94 H 94 Supervising Physician Co-Signing Physician Notes Attending addendum: I have physically seen this patient, have supervised the medical residents activities, and agree with the H&P unless as otherwise noted. Assessment and Plan: Acute CHF exacerbation/hyponatremia with hyperosmolality/non-STEMI/new left bundle branch block- The patient will be admitted to telemetry for serial cardiac enzymes, serial EKG's, cardiac rhythm monitoring and a 2-D echocardiogram with Dopplers. Optimize potassium of 3.1 with oral supplementation. Optimize magnesium 1.7 with IV and reduced volume Lasix 40 mg IV now and then 40 mg IV twice daily. Add Nitropaste as antianginal and for preload and afterload reduction. Fluid restrict to 1500 cc daily. Hold chlorthalidone. Consult cardiology Remainder of orders and notations as noted. Resident Activity Tracking Resident Involvement: Resident Care Provided Care Provided: Adult [facility] Medicine (1) CHF (congestive heart failure) Heart failure chronicity: acute Heart failure type: unspecified Qualified Code(s): I50.9 - Heart failure, unspecified
[2019-11-10] MEDS: POTASSIUM CHLORIDE / WTR 10 MEQ/100 ML PLCT IV SCH ×2 (21:05→22:02)
[2019-11-10] MEDS: MAGNESIUM SULFATE / D5W 1 GM/100 ML BAG IV SCH ×2 (21:05→22:03)
[2019-11-10] MEDS ORDERED: ONDANSETRON INJ 2 MG/ML 2 ML VIAL IV PRN (23:02)
[2019-11-10] MEDS ORDERED: NITROGLYCERIN SL 0.4 MG/TAB TAB SL PRN (23:02)
[2019-11-10] MEDS ORDERED: [UNRECOGNIZED DRUG - OTHER] PO PRN (23:02)
[2019-11-10] MEDS ORDERED: MoRPHine SULFATE 2 MG/ML CARP IV PRN (23:02)
[2019-11-10] MEDS ORDERED: FUROSEMIDE 40 MG in SYRINGE 0 ML IV STA (23:34)
[2019-11-10] MEDS ORDERED: ARTIFICIAL TEARS OP PRN (23:39)
[2019-11-11 00:10] LABS: Troponin I 0.213 ng/ml (0-0.045)
[2019-11-11] MEDS: MAGNESIUM OXIDE 400 MG TAB PO SCH ×3 (00:38→21:39)
[2019-11-11] MEDS ORDERED: LORazepam 0.5 MG TAB PO STA (01:04)
[2019-11-11] MEDS ORDERED: LORazepam 0.5 MG TAB ONE (01:14)
[2019-11-11] MEDS ORDERED: GADOBUTROL 65ML VIAL IV PRN (02:29)
[2019-11-11 06:35] LABS: BUN Creatinine Ratio 27.6 (10-20); Calcium 8.9 mg/dl (8.5-10.1); Creatinine Clr Calc Pharmacy 81.8 ml/min; Est GFR (African American) 110.4; Est GFR (Non-African American) 95.3; Potassium 2.9 mmol/L (3.5-5.1)
[2019-11-11 06:41] LABS: Troponin I 0.388 ng/ml (0-0.045)
--- NOTE | 2019-11-11 07:27 | Ultrasound Report ---
THYROID ULTRASOUND HISTORY: Hyperthyroidism COMPARISON: None. FINDINGS: Right lobe: 3.0 x 1.7 x 1.1 cm. A 3 mm cyst. No nodules. Left lobe: 2.7 x 1.2 x 0.9 cm. A 3 mm cyst. No nodules. Isthmus: 2 mm in thickness. No nodules. IMPRESSION: A few tiny thyroid cysts. No thyroid nodules identified. ACT 112: Negative or not required by law. Electronically signed by: Vikash German M.D. 11/11/2019 7:25 AM
--- NOTE | 2019-11-11 07:40 | Magnetic Resonance Report ---
Brain and pituitary MRI WITH AND WITHOUT CONTRAST HISTORY: Severe headaches. Concern for adenoma TECHNIQUE: Multiplanar multisequence MRI of the brain and pituitary gland were performed both before and after the intravenous administration of contrast. Postcontrast dynamic imaging through the pituit chasity fossa was also obtained. COMPARISON STUDY: None. FINDINGS: No areas of restricted diffusion to suggest acute infarction. The midline structures are in tact. The paranasal sinuses and mastoid air cells are clear. The major vascular flow voids at the sku ll base are well-maintained. The ventricles and sulci demonstrate mild age-related involutional marrero es. There is no mass, hematoma, midline shift. The paranasal sinuses and mastoid air cells are clear. A few scattered punctate foci of T2 hyperintensity seen within the periventricular white matter are nonspecific but favor mild microvascular ischemic change. No abnormal enhancement within the brain. The pituitary gland is normal in size and shape. The pituitary stalk is normal in thickness. Possible 2 mm hypoenhancing nodule within the right pituitary gland versus volume averaging. IMPRESSION: 1. No acute intracranial abnormality. 2. Possible 2 mm hypoenhancing nodule within the right pituitary gland versus volume averaging. ACT 112: Negative or not required by law. Electronically signed by: Vikash German M.D. 11/11/2019 7:39 AM
[2019-11-11] MEDS: POTASSIUM CHLORIDE 10 MEQ TABCR PO SCH (07:49)
[2019-11-11] MEDS: ASPIRIN 81 MG ECTAB PO SCH (07:49)
[2019-11-11] MEDS: CALCIUM 600MG + VIT D 400 IU TAB PO SCH ×2 (07:49→21:40)
--- NOTE | 2019-11-11 08:17 | XRay Report ---
XR chest 1V portable HISTORY: 78 years-old Female CHF acute shortness of breath with congestive heart failure COMPARISON: Chest radiograph 11/10/2019 TECHNIQUE: Portable AP view of the chest FINDINGS: Cardiac silhouette is enlarged. Pulmonary vascular congestion with interstitial coarsening. Calcified plaque of the thoracic aortic arch. Unchanged pleural effusions with right greater than left bibasil ar opacities. There is no pneumothorax. Degenerative changes of the shoulders and spine. Thoracolumba r sigmoidal scoliosis. IMPRESSION: 1. Cardiomegaly with persistent pulmonary edema. 2. Unchanged pleural effusions with right greater than left bibasilar consolidation. ACT 112: Negative or not required by law. The above report was generated using voice recognition software. It may contain grammatical, syntax o r spelling errors. Electronically signed by: Cole Friend M.D. 11/11/2019 8:16 AM
[2019-11-11] MEDS ORDERED: NON-FORMULARY MEDICATION (Lutein-Zeaxanthin 1 CAP) PO SCH (09:00)
[2019-11-11] MEDS ORDERED: CRANBERRY PO SCH (09:00)
[2019-11-11] MEDS ORDERED: SELENIUM PO SCH (09:00)
[2019-11-11] MEDS ORDERED: CHLORTHALIDONE 25 MG TAB PO SCH (09:00)
[2019-11-11] MEDS: ENOXAPARIN INJ 40 MG/0.4 ML SYR SQ SCH (09:26)
[2019-11-11] MEDS: FUROSEMIDE 40 MG in SYRINGE 0 ML IV SCH ×2 (09:26→16:37)
--- NOTE | 2019-11-11 10:41 | XCELERA ---
[id number] \\[id number]}___[id number]
--- NOTE | 2019-11-11 14:31 | Cardiology Consultation ---
Date of Consultation November 11, 2019 Assessment & Plan (1) CHF (congestive heart failure): The patient presented with acute on chronic systolic CHF. Fortunately, she is responding well to intravenous diuretics. As the patient has been intolerant to metoprolol previously, suggest a trial of low-dose carvedilol at 3.125 mg b.i.d.. Could consider low-dose lisinopril as well. She should follow daily weights and sliding-scale diuretics after discharge. (2) Left ventricular dysfunction: Would be reasonable to check a Lexiscan stress test to rule out coronary artery disease as the etiology of her cardiomyopathy. This can be done as an outpatient. (3) Elevated troponin: Suspect the mildly elevated troponin is related to her acute presentation and not myocardial ischemia. History of Present Illness Attending Physician: Ad Aquino MD History of Present Illness Mrs. Qureshi is a 78-year-old female admitted yesterday in decompensated CHF. This consultation was ordered to assist in her management. The patient was in her usual state of health until approximately 3 or 4 days prior to presentation. She began to note orthopnea each evening that she attempted to sleep. On the day prior to presentation, the patient began to note exertional dyspnea and lower extremity edema. She called her primary care office and was referred directly to the emergency room. On arrival here, the patient was noted to pulmonary edema and was started on intravenous diuretics. Her recent history began back in September when she was undergoing an evaluation for an upcoming right reverse total shoulder arthroplasty. An EKG performed on September 12 noted normal sinus rhythm, left axis deviation, and an old anteroseptal infarction. Her appointment to meet with Cardiology was reschedule due to the carballo virus. The patient has never known of a cardiac event. She has never had a cardiac catheterization. She has never experienced exertional chest pain. She further denies syncope, presyncope, palpitations and claudication. Currently, patient is resting comfortably in bed without complaints. Past medical and surgical history 1. Hypertension 2. Mild LVH 3. Mitral regurgitation, moderate 4. Hypothyroidism 5. Hyponatremia 6. History of polio 7. Right rotator cuff tear 8. Scoliosis 9. Interocular lens implants Social history Retired, lives with her sister No tobacco alcohol Family history Noncontributory Review of systems A 10 point review systems was negative except for that described above. Allergies Allergy/AdvReac Type Severity Reaction Status Date / Time acetaminophen Allergy Unknown DIZZINESS/D Verified 11/10/19 19:42 IAPHORETIC amlodipine Allergy Unknown SWOLLEN Verified 11/10/19 19:42 LEGS clonidine Allergy Unknown "VARIETY Verified 11/10/19 19:42 OF COMPLICATIONS" latex Allergy Unknown RASH Verified 11/10/19 19:42 losartan Allergy Unknown "MULTIPLE Verified 11/10/19 19:42 PROBLEMS" spironolactone Allergy Unknown "MULTIPE Verified 11/10/19 19:42 PROBLEMS", COULD NOT TOLERATE terazosin Allergy Unknown SWOLLEN Verified 11/10/19 19:42 LEGS hydrochlorothiazide AdvReac Unknown "COULD NOT Verified 11/10/19 19:42 TOLERATE" metoprolol AdvReac Unknown COULD NOT Verified 11/10/19 19:42 TOLERATE Sulfa (Sulfonamide AdvReac Unknown "COULD NOT Verified 11/10/19 19:42 Antibiotics) TOLERATE" Home Medications Home Medications Medication Instructions Recorded Confirmed Type amoxicillin 500 mg tablet 2,000 mg PO ONCE PRN #4 tab 05/09/19 11/10/19 Rx walker #1 ea 05/10/19 11/10/19 Rx calcium-vits B8-X-T3-minerals 2 tab PO BID 09/12/19 11/10/19 History [Bone Essentials] cannabidiol 15 mg PO DAILY PRN 09/12/19 11/10/19 History [id number] 1 drp OPHTHALMIC (EYE) UD PRN 09/12/19 11/10/19 History [Refresh Optive Advanced] levothyroxine [Synthroid] 75 mcg PO HS 09/12/19 11/10/19 History lutein-zeaxanthin 1 cap PO DAILY 09/12/19 11/10/19 History phenylephrine-acetaminophen [Sinus 1 tab PO UD PRN 09/12/19 11/10/19 History Relief (Non-Drowsy)] cranberry 1 tab PO DAILY 09/13/19 11/10/19 History selenium 1 tab PO DAILY 09/13/19 11/10/19 History Cold Eeze Tramaine 1 tramaine PO UD PRN 11/10/19 11/10/19 History biotin 0 mg PO DAILY 11/10/19 11/10/19 History chlorthalidone 25 mg PO BID 11/10/19 11/10/19 History potassium chloride 10 meq PO DAILY 11/10/19 11/10/19 History Patient History Medical History Anterior dislocation of lens, left eye (Resolved) scheduled for lens exchange and Re fixation of a lens in the left eye (scheduled 09/22/19, Dr. Chilel, [facility]) Hypertension Hyponatremia chronic, baseline sodium low 130's- PCP aware/feel related to chlorthalidone and supplements but d/t multiple allergies will continue with chlorthalidone and monitor hyponatremia Osteoarthritis Personal history of poliomyelitis age 12 Urinary incontinence Surgical History History of cataract surgery left Hx of eye surgery to have eye surgery for lens replacement on 09/22/19 at [facility]. S/P hip replacement right Family History Father Myocardial infarction Other No family history of adverse response to anesthesia Denies family history of Ovarian cancer Prostate cancer Breast cancer Colorectal cancer Social History Preferred Language: Japanese Communication Ability: Effective Life Skills Specialist Required: No Beliefs That Will Affect Care: None marital status: Single Current Living Situation: Family current occupational status: retired Feels Safe at Home: Yes Safety Concerns: Feels Safe At This Time Smoking Status: Never smoker Second Hand Exposure: No ; Hx Alcohol Use: No Hx Substance Use: No caffeine: Yes Dental Care, Regularly: Yes Physical Activity Frequency: Does not Exercise Seatbelt Use: always Sunscreen Use: No Physical Exam Physical Exam: In general this is an elderly white female lying supine in bed without complaints. HEENT exam is negative. Neck is supple with full carotid upstrokes. There are no carotid bruits. Jugular venous pressure is flat at 90. No thyromegaly. Cardiovascular exam reveals a regular rhythm with distant heart sounds. No obvious murmurs. No S3. Lungs are clear without rales, rhonchi or wheezes. Abdomen is soft without bruits extremities reveal trace pretibial edema. Results & Data ([facility]) Vital Signs (Past 12 Hours) Vital Signs Temp Pulse Pulse Pulse Resp BP Pulse Ox 11/11/19 11:41 36.9 C 88 18 125/73 96 11/11/19 09:00 97 H 11/11/19 07:37 36.7 C 76 17 121/70 93 11/11/19 04:00 36.4 C L 92 H 18 145/90 H 95 Laboratory Results CBC notes hemoglobin 11.5, hematocrit 31.5, white count 5.3, platelet count [id number]. Electrolytes noted a sodium of 121, potassium 2.9, chloride 83, bicarb 26, BUN 13, creatinine 0.47, glucose of 99. Troponin I level mildly elevated 0.067 with follow-up values of 0.213, 0.388, and 0.294. BNP is elevated at 8696. TSH mildly elevated at 4.8. Diagnostic Findings EKG notes normal sinus rhythm with a left axis deviation and a complete left bundle-branch block. Echocardiogram notes moderately reduced systolic function with global hypokinesis and an ejection fraction of 30-35%. There is mild LVH and moderate mitral regurgitation. PG Care Time/CCT Total # of Minutes Spent Total Time Spent with Patient: Total time spent is greater than 50% in coordination of care (as documented) at patient's floor/unit and/or counseling patient: Coding Level of Care Code 03129 Initial Inpt Care Lvl 3 Diagnoses CHF (congestive heart failure) I50.9 Heart failure chronicity: acute Heart failure type: unspecified Left ventricular dysfunction I51.9 Elevated troponin R79.89 (1) CHF (congestive heart failure) Heart failure chronicity: acute Heart failure type: unspecified Qualified Code(s): I50.9 - Heart failure, unspecified
--- NOTE | 2019-11-11 15:00 | Electrocardiogram Report ---
Test Reason : Blood Pressure : / mmHG Vent. Rate : 099 BPM Atrial Rate : 099 BPM P-R Int : 152 ms QRS Dur : 130 ms QT Int : 386 ms P-R-T Axes : 039 -34 039 degrees QTc Int : 495 ms Sinus rhythm with marked sinus arrhythmia Left axis deviation Left bundle branch block Abnormal ECG When compared with ECG of 13-SEP-2019 13:54, Left bundle branch block is now Present Confirmed by Rich Espinoza ([id number]) on 11/11/2019 3:00:45 PM Referred By: REFERRED SELF Confirmed By:Rich Espinoza
--- NOTE | 2019-11-11 15:09 | Electrocardiogram Report ---
Test Reason : Blood Pressure : / mmHG Vent. Rate : 094 BPM Atrial Rate : 094 BPM P-R Int : 156 ms QRS Dur : 126 ms QT Int : 378 ms P-R-T Axes : 045 -17 075 degrees QTc Int : 472 ms Normal sinus rhythm Left bundle branch block Abnormal ECG When compared with ECG of 10-NOV-2019 19:23, (unconfirmed) No significant change was found Confirmed by Rich Espinoza ([id number]) on 11/11/2019 3:08:53 PM Referred By: REFERRED SELF Confirmed By:Rich Espinoza
--- NOTE | 2019-11-11 15:21 | Hospitalist Progress Note ---
Date of Service November 11, 2019 Assessment & Plan (1) Acute on chronic systolic (congestive) heart failure: Echo on 11/10 shows EF 30-35%. - Discussed with cardiology: - Recommend beta-tristen (will trial low-dose carvedilol & lisinopril) - Continue diuresis - Monitor I&Os and weights (2) Elevated troponin: Troponin peaked at 0.4 in the context of CHF. Likely mild demand ischemia. Would not consider this a Type 2 [place]. - Continue ASA - Cardiology recommends outpatient stress testing (Lexiscan stress test) (3) Hyponatremia: Thought to be hypervolemic hyponatremia. Notes indicate she runs consistently in the low 130 range, likely due to chlorthalidone. - Monitor closely - Fluid restrict (4) Hyperlipidemia: Will only use supplements; no statin. - Monitor (5) Hypertension: BP presently 125/75. - Hold chlorthalidone - Continue diuresis (6) Hypothyroidism: TSH was 4.8 this admission. - Continue home Synthroid 75 mcg (7) DVT prophylaxis: Lovenox Admission and Anticipated Discharge Date Admission Date: November 10, 2019 Subjective Doing better today. Reports no fevers/chills, chest pain, shortness of breath, abdominal pain, nausea, or vomiting. Physical Exam Constitutional: WD/WN, vitals as above Eyes: EOM intact bilaterally; no conjunctival abnormality ENMT: external ear and nose normal, oropharynx normal Neck: trachea midline, no thyromegaly normal visual inspection Respiratory: normal respiratory effort, lungs clear to auscultation no respiratory distress Cardiovascular: RRR, no murmur, no edema Heart Sounds: normal S1 and normal S2 Vessels: no JVD Gastrointestinal (Abdomen): Inspection/Auscultation: abdomen normal to inspection; abdomen not distended Musculoskeletal: no cyanosis or clubbing, extremities motor strength 5/5 Skin: no rashes, warm and dry Neurologic: moves all extremities and awake Psychiatric: Orientation: alert, oriented to person and cooperative Results & Data Results & Data ([facility]) Vital Signs (Past 12 Hours) Vital Signs Temp Pulse Pulse Pulse Resp BP Pulse Ox 11/11/19 11:41 36.9 C 88 18 125/73 96 11/11/19 09:00 97 H 11/11/19 07:37 36.7 C 76 17 121/70 93 11/11/19 04:00 36.4 C L 92 H 18 145/90 H 95 PG Care Time/CCT Total # of Minutes Spent Total Time Spent with Patient: Total time spent is greater than 50% in coordination of care (as documented) at patient's floor/unit and/or counseling patient: Coding Level of Care Code 03916 Subseq Hosp Care Lvl 3 Diagnoses Acute on chronic systolic (congestive) heart failure I50.23 Elevated troponin R79.89 Hyponatremia E87.1 Hyperlipidemia E78.5 Hypertension I10 Hypothyroidism E03.9 DVT prophylaxis Z29.9
--- NOTE | 2019-11-11 15:29 | Electrocardiogram Report ---
Test Reason : Blood Pressure : / mmHG Vent. Rate : 091 BPM Atrial Rate : 091 BPM P-R Int : 154 ms QRS Dur : 124 ms QT Int : 404 ms P-R-T Axes : 028 -31 083 degrees QTc Int : 496 ms Normal sinus rhythm Left axis deviation Left bundle branch block Abnormal ECG When compared with ECG of 11-NOV-2019 00:40, (unconfirmed) No significant change was found Confirmed by Rich Espinoza ([id number] on 11/11/2019 3:29:30 PM Referred By: REFERRED SELF Confirmed By:Rich Espinoza
[2019-11-11] MEDS ORDERED: POTASSIUM CHLORIDE 20 MEQ TABCR PO STA (16:12)
[2019-11-11] MEDS ORDERED: LEVOTHYROXINE SODIUM 75 MCG TABLET PO SCH (21:00)
[2019-11-11] MEDS: carvediloL 3.125 MG TAB PO SCH (21:39)
[2019-11-12] MEDS ORDERED: SODIUM CHLORIDE 0.65% NA SOLN 45 ML (OCEAN) ONE (03:00)
[2019-11-12] MEDS ORDERED: SODIUM CHLORIDE 0.65% NA SOLN 45 ML (OCEAN) PRN (03:31)
--- NOTE | 2019-11-12 04:51 | Billing Data ---
Date of Service November 12, 2019 Coding Level of Care Code 00506 Initial Inpt Care Lvl 3
[2019-11-12 07:04] LABS: Hematocrit (blood only) 31.2 % (37-47); Hemoglobin 10.9 g/dL (12.0-16.0); Mean Corpuscular Hemoglobin 29.5 pg (25-34); Mean Corpuscular Hgb Conc 34.9 g/dL (32-36); Mean Corpuscular Volume 84.6 fL (80-100); Mean Platelet Volume 9.9 fL (7.4-10.4); Platelet Count 454 K/uL (130-400); RDW Coefficient of Variation 13.2 % (11.5-14.5); RDW Standard Deviation 40.2 fL (36.4-46.3); Red Blood Count 3.69 M/uL (4.2-5.4); White Blood Count 4.64 K/uL (4.8-10.8)
[2019-11-12 07:39] LABS: BUN Creatinine Ratio 31.8 (10-20); Calcium 8.4 mg/dl (8.5-10.1); Creatinine Clr Calc Pharmacy 79.4 ml/min; Est GFR (African American) 110.4; Est GFR (Non-African American) 95.3; Magnesium 1.8 mg/dl (1.8-2.4); Potassium 2.9 mmol/L (3.5-5.1)
[2019-11-12] MEDS: FUROSEMIDE 40 MG in SYRINGE 0 ML IV SCH (08:15)
[2019-11-12] MEDS: carvediloL 3.125 MG TAB PO SCH ×2 (08:15→21:05)
[2019-11-12] MEDS: ENOXAPARIN INJ 40 MG/0.4 ML SYR SQ SCH (08:15)
[2019-11-12] MEDS: MAGNESIUM OXIDE 400 MG TAB PO SCH ×2 (08:15→21:06)
[2019-11-12] MEDS: ASPIRIN 81 MG ECTAB PO SCH (08:15)
[2019-11-12] MEDS: CALCIUM 600MG + VIT D 400 IU TAB PO SCH ×2 (08:15→21:04)
[2019-11-12] MEDS: POTASSIUM CHLORIDE 20 MEQ TABCR PO SCH ×2 (09:01→21:04)
[2019-11-12] MEDS: POTASSIUM CHLORIDE 10 MEQ TABCR PO SCH (09:17)
[2019-11-12] MEDS ORDERED: Nursing to Pharmacy Communication ONE (09:30)
[2019-11-12] MEDS: LEVOTHYROXINE SODIUM 75 MCG TABLET PO SCH (09:35)
--- NOTE | 2019-11-12 14:04 | Hospitalist Progress Note ---
Date of Service November 12, 2019 Assessment & Plan (1) Acute on chronic systolic (congestive) heart failure: Echo on 11/10 shows EF 30-35%. - Discussed with cardiology: - Recommend beta-tristen (will trial low-dose carvedilol & lisinopril) - Continue diuresis -> Will go down to daily Lasix from BID as she is near euvolemic to my exam. - Monitor I&Os and weights: Down to 50 kg today from 53.5 kg on admission. Down about 2+ L in fluid. (2) Elevated troponin: Troponin peaked at 0.4 in the context of CHF. Likely mild demand ischemia. Would not consider this a Type 2 [place]. - Continue ASA - Cardiology recommends outpatient stress testing (Lexiscan stress test) (3) Hyponatremia: Thought to be hypervolemic hyponatremia. Notes indicate she runs consistently in the low 130 range, likely due to chlorthalidone. - Monitor closely - Fluid restrict (4) Hyperlipidemia: Will only use supplements; no statin. - Monitor (5) Hypertension: BP presently 110/70. - Hold chlorthalidone - Continue diuresis (6) Hypothyroidism: TSH was 4.8 this admission. - Continue home Synthroid 75 mcg (7) DVT prophylaxis: Lovenox Admission and Anticipated Discharge Date Admission Date: November 10, 2019 Subjective Doing well. Minimal swelling today. Feels like she is breathing well. Reports no fevers/chills, chest pain, shortness of breath, abdominal pain, nausea, or vomiting. Physical Exam Constitutional: WD/WN, vitals as above Eyes: EOM intact bilaterally; no conjunctival abnormality ENMT: external ear and nose normal, oropharynx normal Neck: trachea midline, no thyromegaly normal visual inspection Respiratory: normal respiratory effort, lungs clear to auscultation no respiratory distress Cardiovascular: RRR, no murmur, no edema Heart Sounds: normal S1 and normal S2 Vessels: no JVD Gastrointestinal (Abdomen): Inspection/Auscultation: abdomen normal to inspection; abdomen not distended Musculoskeletal: no cyanosis or clubbing, extremities motor strength 5/5 Skin: no rashes, warm and dry Neurologic: moves all extremities and awake Psychiatric: Orientation: alert, oriented to person and cooperative Results & Data Results & Data ([facility]) Vital Signs (Past 12 Hours) Vital Signs Temp Pulse Pulse Pulse Resp BP Pulse Ox 11/12/19 12:00 36.6 C 75 18 110/70 95 11/12/19 09:00 75 11/12/19 07:05 36.9 C 62 18 114/74 92 11/12/19 03:21 36.8 C 74 17 122/75 95 PG Care Time/CCT Total # of Minutes Spent Total Time Spent with Patient: Total time spent is greater than 50% in coordination of care (as documented) at patient's floor/unit and/or counseling patient: Coding Level of Care Code 54768 Subseq Hosp Care Lvl 3 Diagnoses Acute on chronic systolic (congestive) heart failure I50.23 Elevated troponin R79.89 Hyponatremia E87.1 Hyperlipidemia E78.5 Hypertension I10 Hypothyroidism E03.9 DVT prophylaxis Z29.9
[2019-11-13] MEDS: LEVOTHYROXINE SODIUM 75 MCG TABLET PO SCH (06:16)
[2019-11-13 06:20] LABS: Hematocrit (blood only) 31.9 % (37-47); Mean Corpuscular Hemoglobin 29.6 pg (25-34); Mean Corpuscular Hgb Conc 34.5 g/dL (32-36); Mean Corpuscular Volume 85.8 fL (80-100); Mean Platelet Volume 9.7 fL (7.4-10.4); Platelet Count 473 K/uL (130-400); RDW Coefficient of Variation 13.3 % (11.5-14.5); RDW Standard Deviation 41.5 fL (36.4-46.3); Red Blood Count 3.72 M/uL (4.2-5.4); White Blood Count 5.78 K/uL (4.8-10.8)
[2019-11-13 06:52] LABS: BUN Creatinine Ratio 35.3 (10-20); Calcium 8.6 mg/dl (8.5-10.1); Creatinine Clr Calc Pharmacy 90.7 ml/min; Est GFR (African American) 115.5; Est GFR (Non-African American) 99.7; Potassium 3.8 mmol/L (3.5-5.1)
[2019-11-13] MEDS: CALCIUM 600MG + VIT D 400 IU TAB PO SCH ×2 (08:04→20:02)
[2019-11-13] MEDS: MAGNESIUM OXIDE 400 MG TAB PO SCH ×2 (08:04→20:02)
[2019-11-13] MEDS: carvediloL 3.125 MG TAB PO SCH ×2 (08:05→20:02)
[2019-11-13] MEDS: ASPIRIN 81 MG ECTAB PO SCH (08:05)
[2019-11-13] MEDS: POTASSIUM CHLORIDE 10 MEQ TABCR PO SCH (08:05)
[2019-11-13] MEDS: FUROSEMIDE 40 MG TAB PO SCH (08:06)
[2019-11-13] MEDS: ENOXAPARIN INJ 40 MG/0.4 ML SYR SQ SCH (08:07)
--- NOTE | 2019-11-13 08:54 | Electrocardiogram Report ---
Test Reason : Blood Pressure : / mmHG Vent. Rate : 078 BPM Atrial Rate : 078 BPM P-R Int : 164 ms QRS Dur : 128 ms QT Int : 418 ms P-R-T Axes : 041 -25 137 degrees QTc Int : 476 ms Sinus rhythm with occasional Premature ventricular complexes and Premature atrial complexes Possible Left atrial enlargement Left bundle branch block Abnormal ECG When compared with ECG of 11-NOV-2019 06:52, Premature ventricular complexes are now Present Premature atrial complexes are now Present Confirmed by Juan Prabhakar ([id number]) on 11/13/2019 8:54:08 AM Referred By: REFERRED SELF Confirmed By:Juan Prabhakar
[2019-11-13] MEDS ORDERED: FUROSEMIDE 40 MG in SYRINGE 0 ML IV SCH (09:00)
--- NOTE | 2019-11-13 15:07 | Hospitalist Progress Note ---
Date of Service November 13, 2019 Assessment & Plan (1) Acute on chronic systolic (congestive) heart failure: Echo on 11/10 shows EF 30-35%. - Continue low-dose carvedilol and lisinopril - Continue diuresis -> Will go down to daily Lasix from BID as she is near euvolemic to my exam. - Monitor I&Os and weights: Down to 50 kg today from 53.5 kg on admission. Down about 3L in fluid. - Will consult [facility] (2) Hyponatremia: Thought to be hypervolemic hyponatremia. Notes indicate she runs consistently in the low 130 range, likely due to chlorthalidone. - Monitor closely -> Stable, but remaining low at 123. - Some element of SIADH as her urine osms are 470 despite her low sodium (> 2x her sodium leans toward SIADH). - Fluid restrict to 1800 mL/day (3) Elevated troponin: Troponin peaked at 0.4 in the context of CHF. Likely mild demand ischemia. Would not consider this a Type 2 [place]. - Continue ASA - Cardiology recommends outpatient stress testing (Lexiscan stress test) (4) Hyperlipidemia: Will only use supplements; no statin. - Monitor (5) Hypertension: BP presently 110/70. - Hold chlorthalidone - Continue diuresis with Lasix (6) Hypothyroidism: TSH was 4.8 this admission. - Continue home Synthroid 75 mcg (7) Underweight: Underweight, BMI 17.9 kg/m*m (8) DVT prophylaxis: Lovenox Admission and Anticipated Discharge Date Admission Date: November 10, 2019 Physical Exam Constitutional: WD/WN, vitals as above Eyes: EOM intact bilaterally; no conjunctival abnormality ENMT: external ear and nose normal, oropharynx normal Neck: trachea midline, no thyromegaly normal visual inspection Respiratory: normal respiratory effort, lungs clear to auscultation no respiratory distress Cardiovascular: RRR, no murmur, no edema Heart Sounds: normal S1 and normal S2 Vessels: no JVD Gastrointestinal (Abdomen): Inspection/Auscultation: abdomen normal to inspection; abdomen not distended Musculoskeletal: no cyanosis or clubbing, extremities motor strength 5/5 Skin: no rashes, warm and dry Neurologic: moves all extremities and awake Psychiatric: Orientation: alert, oriented to person and cooperative Results & Data Results & Data ([facility]) Vital Signs (Past 12 Hours) Vital Signs Temp Pulse Resp BP Pulse Ox 11/13/19 11:41 36.7 C 78 18 107/71 97 11/13/19 07:50 36.5 C 87 18 143/78 H 98 11/13/19 04:00 36.6 C 71 20 117/70 96 PG Care Time/CCT Total # of Minutes Spent Total Time Spent with Patient: Total time spent is greater than 50% in coordination of care (as documented) at patient's floor/unit and/or counseling patient: Coding Level of Care Code 92655 Subseq Hosp Care Lvl 2 Diagnoses Acute on chronic systolic (congestive) heart failure I50.23 Hyponatremia E87.1 Elevated troponin R79.89 Hyperlipidemia E78.5 Hypertension I10 Hypothyroidism E03.9 Underweight R63.6 DVT prophylaxis Z29.9
[2019-11-14] MEDS: LEVOTHYROXINE SODIUM 75 MCG TABLET PO SCH (05:45)
[2019-11-14 06:12] LABS: Hematocrit (blood only) 33.5 % (37-47); Hemoglobin 11.6 g/dL (12.0-16.0); Mean Corpuscular Hemoglobin 29.4 pg (25-34); Mean Corpuscular Hgb Conc 34.6 g/dL (32-36); Mean Corpuscular Volume 84.8 fL (80-100); Mean Platelet Volume 9.7 fL (7.4-10.4); Platelet Count 483 K/uL (130-400); RDW Coefficient of Variation 13.4 % (11.5-14.5); RDW Standard Deviation 41.2 fL (36.4-46.3); Red Blood Count 3.95 M/uL (4.2-5.4); White Blood Count 5.49 K/uL (4.8-10.8)
[2019-11-14 06:53] LABS: BUN Creatinine Ratio 36.8 (10-20); Calcium 9.1 mg/dl (8.5-10.1); Creatinine Clr Calc Pharmacy 78.7 ml/min; Est GFR (African American) 113.7; Est GFR (Non-African American) 98.1; Magnesium 1.7 mg/dl (1.8-2.4); Potassium 3.5 mmol/L (3.5-5.1)
[2019-11-14] MEDS: ASPIRIN 81 MG ECTAB PO SCH (08:27)
[2019-11-14] MEDS: carvediloL 3.125 MG TAB PO SCH ×2 (08:27→20:34)
[2019-11-14] MEDS: FUROSEMIDE 40 MG TAB PO SCH (08:27)
[2019-11-14] MEDS: MAGNESIUM OXIDE 400 MG TAB PO SCH ×2 (08:28→20:35)
[2019-11-14] MEDS: POTASSIUM CHLORIDE 10 MEQ TABCR PO SCH (08:28)
[2019-11-14] MEDS: CALCIUM 600MG + VIT D 400 IU TAB PO SCH ×2 (08:28→20:34)
[2019-11-14] MEDS: ENOXAPARIN INJ 40 MG/0.4 ML SYR SQ SCH (08:30)
--- NOTE | 2019-11-14 22:59 | Hospitalist Progress Note ---
Date of Service November 14, 2019 Assessment & Plan (1) Acute on chronic systolic (congestive) heart failure: Echo on 11/10 shows EF 30-35%. - Continue low-dose carvedilol and lisinopril - Continue diuresis -> Will continue daily PO lasix. - Monitor I&Os and weights: Down to 50 kg today from 53.5 kg on admission. - Will consult [place] [facility] clinic (2) Hyponatremia: Thought to be hypervolemic hyponatremia. Notes indicate she runs consistently in the low 130 range, likely due to chlorthalidone. - Monitor closely -> Stable, but remaining low at 125. - Some element of SIADH as her urine osms are 470 despite her low sodium (> 2x her sodium leans toward SIADH). - Fluid restrict to 1800 mL/day (3) Elevated troponin: Troponin peaked at 0.4 in the context of CHF. Likely mild demand ischemia. Would not consider this a Type 2 [place]. - Continue ASA - Cardiology recommends outpatient stress testing (Lexiscan stress test) (4) Hyperlipidemia: Will only use supplements; no statin. - Monitor (5) Hypertension: BP presently 110/70. - Hold chlorthalidone - Continue diuresis with Lasix (6) Hypothyroidism: TSH was 4.8 this admission. - Continue home Synthroid 75 mcg (7) Underweight: Underweight, BMI 17.9 kg/m*m (8) DVT prophylaxis: Lovenox Admission and Anticipated Discharge Date Admission Date: November 10, 2019 Subjective Patient reports feeling better today. She has no new complaints Review of Systems Review of Systems: All systems reviewed & are unremarkable except as noted in HPI & below Physical Exam Physical Exam: Constitutional: WD/WN, vitals as above Eyes: EOM intact bilaterally; no conjunctival abnormality ENMT: external ear and nose normal, oropharynx normal Neck: trachea midline, no thyromegaly normal visual inspection Respiratory: normal respiratory effort, lungs clear to auscultation no respiratory distress Cardiovascular: RRR, no murmur, no edema Heart Sounds: normal S1 and normal S2 Vessels: no JVD Gastrointestinal (Abdomen): Inspection/Auscultation: abdomen normal to inspection; abdomen not distended Musculoskeletal: no cyanosis or clubbing, extremities motor strength 5/5 Skin: no rashes, warm and dry Neurologic: moves all extremities and awake Psychiatric: Orientation: alert, oriented to person and cooperative Results & Data Results & Data ([facility]) Vital Signs (Past 12 Hours) Vital Signs Temp Pulse Pulse Resp BP Pulse Ox 11/14/19 19:39 36.7 C 77 18 127/77 96 11/14/19 15:38 81 11/14/19 15:00 36.4 C L 79 18 131/67 98 11/14/19 11:00 37.0 C 80 16 144/76 H 96 PG Care Time/CCT Total # of Minutes Spent Total Time Spent with Patient: Total time spent is greater than 50% in coordination of care (as documented) at patient's floor/unit and/or counseling patient: Coding Level of Care Code 43278 Subseq Hosp Care Lvl 3 Diagnoses Acute on chronic systolic (congestive) heart failure I50.23 Hyponatremia E87.1 Elevated troponin R79.89 Hyperlipidemia E78.5 Hypertension I10 Hypothyroidism E03.9 Underweight R63.6 DVT prophylaxis Z29.9 Time Spent (min) 35
[2019-11-15] MEDS: LEVOTHYROXINE SODIUM 75 MCG TABLET PO SCH (05:22)
[2019-11-15] MEDS: carvediloL 3.125 MG TAB PO SCH (08:37)
[2019-11-15] MEDS: ASPIRIN 81 MG ECTAB PO SCH (08:37)
[2019-11-15] MEDS: FUROSEMIDE 40 MG TAB PO SCH (08:37)
[2019-11-15] MEDS: MAGNESIUM OXIDE 400 MG TAB PO SCH (08:37)
[2019-11-15] MEDS: POTASSIUM CHLORIDE 10 MEQ TABCR PO SCH (08:37)
[2019-11-15] MEDS: CALCIUM 600MG + VIT D 400 IU TAB PO SCH (08:38)
[2019-11-15] MEDS: ENOXAPARIN INJ 40 MG/0.4 ML SYR SQ SCH (08:38)
[2019-11-15 09:55] LABS: Calcium 9.2 mg/dl (8.5-10.1); Creatinine Clr Calc Pharmacy 61.5 ml/min; Est GFR (African American) 104.9; Est GFR (Non-African American) 90.5; Potassium 3.3 mmol/L (3.5-5.1)
[2019-11-15] MEDS ORDERED: POTASSIUM CHLORIDE 20 MEQ TABCR PO ONE (10:45)
--- NOTE | 2019-11-15 11:06 | Discharge Summary ---
Date of Service November 15, 2019 Admission HPI Per Admitting Provider Elin Qureshi is a augustus 78 year old woman with a past medical history significant for hypertension, hypothyroidism, torn rotator cuff and Polio as a child who is here today for worsening orthopnea and shortness of breath with leg swelling for past several days. Patient tells me she was having shortness of breath for past several days when she was lying down at night to sleep. She couldn't lie flat without becoming quite distressed. Today it has gotten even worse and is present even sitting up. She has also noticed quite a bit of lower limb edema. She says she's noted edema in the past but not to this extent. She called her pcp office who advised her to present to ED. 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 She was supposed to follow up with cardiology but was never able to because of quarantine. She is adamant that all of her issues stem from getting the flu shot this fall. After getting her flu shot she notes nasal congestion that has been terrible and for which she's been on multiple decongestants and antibiotics without success. She thinks it has also played a role in these problems. On presentation to the emergency department patient's vitals were significant for HTN and tachypnea but she is oxygenating well on room air. She is afebrile denying any chest pain and endorsing progressive shortness of breath and leg swelling. She has had some exertional dyspnea as well but she has not been doing much active. Labwork is signficant for hyponatremia to 20, looking back at her previous labs this appears to down from a chronic hyponatremia with a baseline around 130., hypokalemic with potassium of 3.1 and hypochloremic with Cl of 84. urine osms pending. Troponin elevated to .067 BNP of 8696, albumin of 2.9, TSH and free T4 elevated. Serum and urine OSmole both low CXR showing CHF with small bilateral pleural effusions. Patient does not use any alcohol, does not smoke, no drug use but does use cannabandoid based pain medication. Lives at home with sister who brought her to hospital. Wishes to be DNR/DNI. Principal Diagnosis Acute on chronic CHF Discharge Exam Constitutional: WD/WN, vitals as above Eyes: EOM intact bilaterally; no conjunctival abnormality ENMT: external ear and nose normal, oropharynx normal Neck: trachea midline, no thyromegaly normal visual inspection Respiratory: normal respiratory effort, lungs clear to auscultation no respiratory distress Cardiovascular: RRR, no murmur, no edema Heart Sounds: normal S1 and normal S2 Vessels: no JVD Gastrointestinal (Abdomen): Inspection/Auscultation: abdomen normal to inspection; abdomen not distended Musculoskeletal: no cyanosis or clubbing, extremities motor strength 5/5 Skin: no rashes, warm and dry Neurologic: moves all extremities and awake Psychiatric: Orientation: alert, oriented to person and cooperative Discharge Data Allergies Allergy/AdvReac Type Severity Reaction Status Date / Time acetaminophen Allergy Unknown DIZZINESS/D Verified 11/17/19 13:56 IAPHORETIC amlodipine Allergy Unknown SWOLLEN Verified 11/17/19 13:56 LEGS clonidine Allergy Unknown "VARIETY Verified 11/17/19 13:56 OF COMPLICATIONS" latex Allergy Unknown RASH Verified 11/17/19 13:56 losartan Allergy Unknown "MULTIPLE Verified 11/17/19 13:56 PROBLEMS" spironolactone Allergy Unknown "MULTIPE Verified 11/17/19 13:56 PROBLEMS", COULD NOT TOLERATE terazosin Allergy Unknown SWOLLEN Verified 11/17/19 13:56 LEGS hydrochlorothiazide AdvReac Unknown "COULD NOT Verified 11/17/19 13:56 TOLERATE" metoprolol AdvReac Unknown COULD NOT Verified 11/17/19 13:56 TOLERATE Sulfa (Sulfonamide AdvReac Unknown "COULD NOT Verified 11/17/19 13:56 Antibiotics) TOLERATE" Consultations 11/10/19 20:39 ED Decision to Admit Stat 11/10/19 23:02 Consult Cardiology Routine Ordered Studies 11/11/19 00:27 MR brain pituitary wo/w con Urgent 11/11/19 01:46 US thyroid Routine Hospital Course (1) Acute on chronic systolic (congestive) heart failure: Echo on 11/10 shows EF 30-35%. - Continue low-dose carvedilol and lisinopril - Continue diuresis -> Will continue daily PO lasix for discharge. weights: Down to 50 kg from 53.5 kg on admission. - [place] [facility] [place]. Patient will need to monitor her weight daily. (2) Hyponatremia: Thought to be hypervolemic hyponatremia. Notes indicate she runs consistently in the low 130 range, likely due to chlorthalidone. - Monitor closely -> Stable, but remaining low at 125. - Some element of SIADH as her urine osms are 470 despite her low sodium (> 2x her sodium leans toward SIADH). - Fluid restrict to 1800 mL/day at discharge. (3) Elevated troponin: Troponin peaked at 0.4 in the context of CHF. Likely mild demand ischemia. Would not consider this a Type 2 IN. - Continue ASA - Cardiology recommends outpatient stress testing (Lexiscan stress test) (4) Hyperlipidemia: Will only use supplements; no statin. - Monitor (5) Hypertension: BP presently 110/70. - Hold chlorthalidone - Continue diuresis with Lasix (6) Hypothyroidism: TSH was 4.8 this admission. - Continue home Synthroid 75 mcg (7) Underweight: Underweight, BMI 17.9 kg/m*m (8) DVT prophylaxis: Lovenox (9) Pituitary adenoma: Tiny nodule that is 2 mm noted on MRI. will refer to Endocrinology for hormone hypersecretion workup. Will defer to PCP and senior lead project manager if further imaging is required. Total Time Total Time Spent Total Time Spent (In Minutes): 32 Total Time Includes: Examination of the Patient, Discharge Planning and Medication Reconciliation Discharge Plan Discharge Items Patient Disposition: Home - Self-Care Reason For Visit: CHF EXACERBATION Discharge Diagnosis: CHF exacerbation Activity: Resume your previous activity Non-emergency contact: Primary Care Provider Call non-emergency contact if: you have any medication questions Follow-up/Referrals: Alexa Boggs CRNP [Primary Care Provider] - 11/22/19 10:30 am (You have an appoinment with your PCP Alexa Boggs at [facility] on 11/21 at 10:30. Please arrive 15 minutes early.) Amy Mason PA-C [Physician Manager Business Intelligence] - 11/23/19 9:00 am (Congestive Heart Failure Program Appointment Information Early follow up is essential to managing your heart failure. An appointment has been scheduled for you with the [facility] Heart Failure Program within 7 days of discharge. Anticipate this visit to be 30-60 minutes long. Please expect a discharging machine operator phone call from one of our nurses approximately 48 hours from discharge. They will also be placing an order for lab work to be completed 1-2 days prior to your heart failure follow up appointment. Please be sure to have this done so we can go over the results when you come in. Office Location The cardiology office building is located in front of the hospital at [address] Bring the following with you to your follow-up doctor appointments: Please bring your daily weight log any discharge paperwork all of your medication bottles with you to this visit. ) Diet: Regular Addtl Attending Provider Instructions: Patient will need to followup with PCP and Heart failure clinic. Check BMP on Thursday. Pituitary incidentaloma, will refer to endocrinology. Call your Primary Care doctor if any of the following symptoms or problems start or get worse: * Shortness of breath or difficulty breathing * Wake up at night short of breath * Chest pain * Cough * Swelling of your hands, feet, or legs * More fatigued or tired with your normal activity * Palpitations - sudden fast heart beats WEIGHT * Weigh yourself every morning after using the bathroom. * Use the same scale. * Wear the same amount of clothing. * Write your weight down on a chart. * Call your Primary Care doctor if you gain more than 2-3 pounds in 1-2 days. MEDICATIONS * Use this discharge instruction sheet for medication instructions. * Take your medications at the time your doctor ordered. * Do not skip a dose of your medicines. * If you miss a dose of medicine, take it as soon as possible, but DO NOT DOUBLE A DOSE. * Read your medicine information when you get home. * Know all of the side effects of your medicine. If in doubt, ask your pharmacist * Call your Primary Care doctor's office if you have any side effects. * Be sure all of your doctors know what medicine and herbs you take (including cold, flu, and herbal medicine). Take the following with you to your follow-up doctor appointments: * Weight Chart * Medication List * List of questions Do not drink excessive alcohol, beer or wine. Pending Studies at Discharge: No Stand-Alone Forms: [employer], Smoking Cessation Medications and DC Order Prescriptions: New furosemide 40 mg Tablet 40 mg PO QAM Qty: 30 RF: 0 aspirin 81 mg Tablet,Delayed Release (Dr/Ec) 81 mg PO QAM Qty: 30 RF: 0 carvedilol 3.125 mg Tablet 3.125 mg PO BID Qty: 60 RF: 0 magnesium oxide 400 mg (241.3 mg magnesium) Tablet 400 mg PO BID Qty: 60 RF: 0 lisinopril 2.5 mg Tablet 2.5 mg PO QAM Qty: 30 RF: 0 potassium chloride [Klor-Con M10] 10 mEq Tablet,Er Particles/Crystals 10 meq PO BID Qty: 60 RF: 0 sodium chloride 1 gram tablet 1,000 mg PO .other day Qty: 30 RF: 0 Continued amoxicillin 500 mg tablet 2,000 mg PO ONCE PRN (Reason: prior to dental apts.) Qty: 4 RF: 1 (DME) [facility] See Dose Instructions .ROUTE .MEDSUPPLY Qty: 1 RF: 0 cannabidiol 100 mg/mL Solution 15 mg PO DAILY PRN (Reason: Pain) RF: 0 Bone Essentials 166.75 mg- 166.75 unit Capsule 2 tab PO BID RF: 0 lutein-zeaxanthin 20 mg- 1,000 mcg Capsule 1 cap PO DAILY RF: 0 Refresh Optive Advanced 0.5-1-0.5 % Drops 1 drp OPHTHALMIC (EYE) UD PRN (Reason: Dry Eyes) RF: 0 Sinus Relief (Non-Drowsy) 5-325 mg Tablet 1 tab PO UD PRN (Reason: sinus congestion) RF: 0 selenium 1 tab PO QAM RF: 0 Discontinued potassium chloride 10 mEq tablet extended release 10 meq PO DAILY RF: 0 chlorthalidone 25 mg tablet 25 mg PO BID RF: 0 No Action levothyroxine [Synthroid] 75 mcg tablet 75 mcg PO QAM RF: 0 cranberry extract [Cranberry Juice Powder] 425 mg Capsule 425 mg PO QDD RF: 0 Discharge Orders: Discharge Order (Routine); Ordered 11/15/19 Ordered By: Joby Vizcarra/Other Patient Handouts: Heart Failure Making Changes to Your Diet Admission Data Admit Date/Time: 11/10/19 22:07 Attending Provider: Joby Layton Admit Provider: Ivan Tadeo Primary Care Provider: Alexa Boggs Other Providers: Ad Aquino ; Adan Viramontes ; Rich Espinoza Other Interventions: Discharge Summary Assessment (RN) Last Done: 11/15/19 13:15 DC Date/Time DO NOT enter until pt leaves facility: 11/15/19 15:28 Coding Level of Care Code D/C Day Management >30 mins Diagnoses Acute on chronic systolic (congestive) heart failure I50.23 Hyponatremia E87.1 Elevated troponin R79.89 Hyperlipidemia E78.5 Hypertension I10 Hypothyroidism E03.9 Underweight R63.6 DVT prophylaxis Z29.9 Pituitary adenoma D35.2 Time Spent (min) 32
[2019-11-15] MEDS ORDERED: POTASSIUM CHLORIDE 20 MEQ TABCR PO SCH (14:00)
== END 2019-11-15 15:28 | disposition home or self-care (01) | DRG 292 ==
LOC: ED 18:42 → SUATTDRO 22:07 → 2S 22:07 → 2N 11-13 16:50

== ENCOUNTER 2020-04-03 11:06 | Inpatient (IN) ==
--- NOTE | 2020-03-26 10:24 | PAT Medication Instructions ---
Medication Instructions Date of Service March 26, 2020 Home Medications Medication Instructions Recorded amoxicillin 500 mg tablet 2,000 mg PO ONCE PRN #4 tab 05/09/19 walker #1 ea 05/10/19 magnesium oxide 400 mg (241.3 mg 400 mg PO BID #60 tab 12/08/19 magnesium) tablet potassium chloride 10 mEq 10 meq PO BID #60 tab 12/08/19 tablet,extended release(part/cryst) aspirin 81 mg tablet,delayed 81 mg PO QAM #90 tab 12/15/19 release carvedilol 6.25 mg tablet 6.25 mg PO BID #180 tab 12/15/19 miscellaneous medical supply #1 ea 01/12/20 levothyroxine 75 mcg tablet 75 mcg PO QAM #30 tab 02/14/20 sacubitril 49 mg-valsartan 51 mg 1 tab PO BID #60 tab 03/13/20 tablet amoxicillin 500 mg tablet 2,000 mg PO ONCE PRN Refresh Optive Advanced 1 drp OPHTHALMIC (EYE) UD PRN cannabidiol 25 mg PO DAILY PRN magnesium oxide 400 mg (241.3 mg magnesium) tablet 400 mg PO BID potassium chloride 10 mEq tablet,extended release(part/cryst) 10 meq PO BID aspirin 81 mg tablet,delayed release 81 mg PO QAM carvedilol 6.25 mg tablet 6.25 mg PO BID psyllium husk 1 dose PO BID Lactobacillus acidophilus 1 dose PO QDL 0 diphenhydramine HCl 1 tab PO QPM turmeric 1 tab PO QAM levothyroxine 75 mcg tablet 75 mcg PO QAM selenium 200 mcg capsule 200 mcg PO QAM sacubitril 49 mg-valsartan 51 mg tablet 1 tab PO BID [employer] Complex 1 dose PO QPM Nerve Pain Away 1 dose TOPICAL DAILY PRN furosemide 40 mg PO QPM Continue as directed amoxicillin 500 mg tablet 2,000 mg PO ONCE PRN STOP taking 2 weeks before surgery If surgery is within 2 weeks, stop taking as soon as possible. turmeric 1 tab PO QAM selenium 200 mcg capsule 200 mcg PO QAM Green Foods Complex 1 dose PO QPM Nerve Pain Away 1 dose TOPICAL DAILY PRN DO NOT take the morning of surgery cannabidiol 25 mg PO DAILY PRN magnesium oxide 400 mg (241.3 mg magnesium) tablet 400 mg PO BID potassium chloride 10 mEq tablet,extended release(part/cryst) 10 meq PO BID psyllium husk 1 dose PO BID Lactobacillus acidophilus 1 dose PO QDL sacubitril 49 mg-valsartan 51 mg tablet 1 tab PO BID Take morning of surgery With a small sip of water, OTHERWISE NOTHING TO EAT OR DRINK AFTER MIDNIGHT: Refresh Optive Advanced 1 drp OPHTHALMIC (EYE) UD PRN (if needed) aspirin 81 mg tablet,delayed release 81 mg PO QAM (unless otherwise directed by your surgeon) carvedilol 6.25 mg tablet 6.25 mg PO BID levothyroxine 75 mcg tablet 75 mcg PO QAM Take evening before surgery Refresh Optive Advanced 1 drp OPHTHALMIC (EYE) UD PRN (if needed) cannabidiol 25 mg PO DAILY PRN (if needed) magnesium oxide 400 mg (241.3 mg magnesium) tablet 400 mg PO BID potassium chloride 10 mEq tablet,extended release(part/cryst) 10 meq PO BID carvedilol 6.25 mg tablet 6.25 mg PO BID psyllium husk 1 dose PO BID diphenhydramine HCl 1 tab PO QPM sacubitril 49 mg-valsartan 51 mg tablet 1 tab PO BID furosemide 40 mg PO QPM Other Notes If you have any questions please call us at [phone] or [phone] or [phone] or [phone]
--- NOTE | 2020-03-27 12:42 | Anesthesiology Consultation ---
Date of Service March 27, 2020 Assessment & Plan (1) Encounter for pre-operative examination: COVID Status: As of 03/27 assessment, patient denies travel to endemic area, known exposure/sick contacts, or symptoms of COVID19. Patient instructed that they and their household members must follow strict social distancing guidelines, wear a mask in public and avoid travel for 14 days prior to surgery. Preoperative COVID19 testing to be completed prior to surgery per surgeon's a rrangements. Patient made aware to self-isolate as much as possible between COVID testing and surgery. Contacted cardiology and CHF clinic re: upcoming surgery. Per Izzy Mason PA-C from CHF clinic "From a heart failure standpoint she is stable. She does need her meds further optimized but we can do that after her surgery. She's still on low dose therapy so I wouldn't normally repeat the echo until 2-3 months of optimal therapy." Per Dr. Espinoza, "She is an acceptable cardiac risk for surgery as long as she is maintained on her medications." Chart Review Chart Review: Acceptable Risk for Surgery and Patient NOT seen in Pre Admission Testing Teaching & Discussion Instructed NPO after midnight before surgery, except medications with 15 cc of water. Medication instructions provided according to the PAT guidelines. History Surgery Operation Date: 04/03/20 11:35 Proposed Procedures p Right Reverse Total Shoulder Arthroplasty - Farrukh Reilly DO Height/Weight Height: 4 ft 7 in Weight: 50 kg Allergies Allergy/AdvReac Type Severity Reaction Status Date / Time acetaminophen Allergy Unknown DIZZINESS/D Verified 03/20/20 15:37 IAPHORETIC amlodipine Allergy Unknown SWOLLEN Verified 03/20/20 15:37 LEGS clonidine Allergy Unknown "VARIETY Verified 03/20/20 15:37 OF COMPLICATIONS" latex Allergy Unknown RASH Verified 03/20/20 15:37 losartan Allergy Unknown "MULTIPLE Verified 03/20/20 15:37 PROBLEMS" spironolactone Allergy Unknown "MULTIPE Verified 03/20/20 15:37 PROBLEMS", COULD NOT TOLERATE terazosin Allergy Unknown SWOLLEN Verified 03/20/20 15:37 LEGS hydrochlorothiazide AdvReac Unknown "COULD NOT Verified 03/20/20 15:37 TOLERATE" lisinopril AdvReac Unknown Per PT Verified 03/20/20 15:37 raised BP metoprolol AdvReac Unknown COULD NOT Verified 03/20/20 15:37 TOLERATE Sulfa (Sulfonamide AdvReac Unknown "COULD NOT Verified 03/20/20 15:37 Antibiotics) TOLERATE" Medications Home Medications Medication Instructions Recorded Confirmed Last Taken amoxicillin 500 mg tablet 2,000 mg PO ONCE PRN #4 tab 05/09/19 03/20/20 Unknown walker #1 ea 05/10/19 03/20/20 Unknown Refresh Optive Advanced 1 drp OPHTHALMIC (EYE) UD PRN 09/12/19 03/20/20 11/17/19 cannabidiol 25 mg PO DAILY PRN 09/12/19 03/20/20 11/16/19 magnesium oxide 400 mg (241.3 mg 400 mg PO BID #60 tab 12/08/19 03/20/20 Unknown magnesium) tablet potassium chloride 10 mEq 10 meq PO BID #60 tab 12/08/19 03/20/20 Unknown tablet,extended release(part/cryst) aspirin 81 mg tablet,delayed 81 mg PO QAM #90 tab 12/15/19 03/20/20 Unknown release carvedilol 6.25 mg tablet 6.25 mg PO BID #180 tab 12/15/19 03/20/20 Unknown psyllium husk 1 dose PO BID 01/11/20 03/20/20 Unknown miscellaneous medical supply #1 ea 01/12/20 03/20/20 Unknown Lactobacillus acidophilus 1 dose PO QDL 02/08/20 03/20/20 Unknown diphenhydramine HCl 1 tab PO QPM 02/08/20 03/20/20 Unknown turmeric 1 tab PO QAM 02/08/20 03/20/20 Unknown levothyroxine 75 mcg tablet 75 mcg PO QAM #30 tab 02/14/20 03/20/20 Unknown selenium 200 mcg capsule 200 mcg PO QAM 02/27/20 03/20/20 Unknown sacubitril 49 mg-valsartan 51 mg 1 tab PO BID #60 tab 03/13/20 03/20/20 Unknown tablet Green Foods Complex 1 dose PO QPM 03/20/20 03/20/20 Unknown Nerve Pain Away 1 dose TOPICAL DAILY PRN 03/20/20 03/20/20 Unknown furosemide 40 mg PO QPM 03/20/20 03/20/20 Unknown Past Medical History Medical History Cardiac murmur Moderate MR on echo 11/11/19 CHF (congestive heart failure) CHF hospitalization 10/2019 [place] -- follows w/ Dr. Espinoza Chronic systolic CHF (congestive heart failure) EF 30-35%. Now on Entresto, following with [facility] [place]F [place]. Medications still being titrated, will have f/u echo once medications are fully optimized. Hypertension Hypothyroidism Osteoarthritis Personal history of poliomyelitis age 12 Urinary incontinence Exercise / Class Metabolic Activity III < 4 Walking/Shop/Light housework (Uses walker or cane for ambulation, minimal activity.) Past Family History Family History Father Myocardial infarction Other No family history of adverse response to anesthesia Denies family history of Ovarian cancer Prostate cancer Breast cancer Colorectal cancer Past Surgical History Surgical History History of cataract surgery left Hx of eye surgery lens replacement on 09/22/19 S/P hip replacement right Past Anesthesia History No Hx of Anesthesia Complications (other than PONV) and No Family Hx of Anesthesia Complications History of PONV History of PONV and Hx of Motion Sickness Social History Smoking Status: Never smoker Do You Dip or Chew Tobacco: No Hx Alcohol Use: No Hx Substance Use: No substance use type: does not use Review of Systems Pt denies any recent chest pain, shortness of breath, palpitations, fever, URI, or uncontrolled acid reflux. +sinus drainage, with cough at night, chronic, worsened lately, felt 2/2 weather changes. +loose stools/diarrhea, since November. Physical Exam Vital Signs BP: 169/52 (pt reports it is usually elevated in medical settings) P: 56bpm SPO2: 99% RA T: 98.1 F R: 16 ENMT Mouth: + dental restorations (gold overlays on molars); no chipped teeth and no loose teeth Thyromental Distance: > or= 3.5 Finger Breadths Mallampati Class: I Neck normal visual inspection; neck extension not limited Respiratory normal respiratory effort Auscultation: lungs clear to auscultation bilaterally Cardiovascular Rate/Rhythm: regular rate and regular rhythm Heart Sounds: + murmur (II/ systolic) Musculoskeletal Spine: + kyphosis Markedly abnormal spinal curvature in thoracic area. Testing Laboratory Results 03/27/20 13:09 03/27/20 13:09 PT 10.5 Seconds (9.0-12.0) 03/27/20 13:09 INR 1.0 (0.9-1.1) 03/27/20 13:09 APTT 30.6 Seconds (21.0-31.0) 03/27/20 13:09 Blood Type A Negative 03/27/20 13:09 Antibody Screen NEGATIVE 03/27/20 13:09 Electrocardiogram Date: 03/27/20 Findings: + SB @ (57bpm) Septal infarct (cited on or before 03/27/20). *Per review of previous EKGs, septal infarct was seen on 09/13/19. Patient subsequently had many EKGs showing LBBB, had echo and DSE. Chest X-Ray Date: 03/27/20 Findings: + NAD Levoscoliosis of the thoracic spine. Echocardiogram Date: 11/11/19 EF: 30-65% LV systolic function is moderately reduced. There is moderate global hypokinesis of the left ventricle. Mild concentric LVH. Moderate mitral regurgitation. Stress Test Date: 12/09/19 Conclusions: 1. Technically limited study. 2. Large amount of diaphragmatic attenuation limits interpretation. 3. Normal anterior wall perfusion at stress and rest. 4. No Lexiscan induced chest discomfort 5. Reduced left ventricular systolic function with an ejection fraction is of 28%. Wall motion difficult to evaluate.
--- NOTE | 2020-03-27 13:57 | XRay Report ---
XR chest Pre-admission PA/Lat HISTORY: 79 years-old Female pat preoperative exam. No acute chest complaints COMPARISON: Chest radiograph 11/17/2019 TECHNIQUE: PA and lateral views of the chest FINDINGS: Cardiac silhouette is upper limits of normal in size. Calcified plaque the thoracic aortic arch. No p neumothorax, pleural effusion, airspace consolidation or overt pulmonary edema. Degenerative changes of the shoulders and spine. Levoscoliosis of the thoracic spine. IMPRESSION: No acute process. ACT 112: Negative or not required by law. The above report was generated using voice recognition software. It may contain grammatical, syntax o r spelling errors. Electronically signed by: Cole Friend M.D. 03/27/2020 1:56 PM
[2020-03-27 14:22] LABS: Basophils # (auto) 0.03 K/uL (0-0.2); Basophils % (auto) 0.6 %; Eosinophils # (auto) 0.14 K/uL (0-0.5); Eosinophils % (auto) 2.6 %; Hematocrit (blood only) 38.1 % (37-47); Hemoglobin 12.7 g/dL (12.0-16.0); Lymphocytes # (auto) 0.86 K/uL (1.2-3.4); Lymphocytes % (auto) 15.8 %; Mean Corpuscular Hemoglobin 30.4 pg (25-34); Mean Corpuscular Hgb Conc 33.3 g/dL (32-36); Mean Corpuscular Volume 91.1 fL (80-100); Monocytes # (auto) 0.55 K/uL (0.11-0.59); Monocytes % (auto) 10.1 %; Neutrophils # (auto) 3.86 K/uL (1.4-6.5); Neutrophils % (auto) 70.9 %; Platelet Count 245 K/uL (130-400); RDW Coefficient of Variation 14.6 % (11.5-14.5); Red Blood Count 4.18 M/uL (4.2-5.4); White Blood Count 5.44 K/uL (4.8-10.8)
[2020-03-27 14:35] LABS: Partial Thromboplastin Ratio 1.1; Partial Thromboplastin Time 30.6 Seconds (21.0-31.0); Prothrombin Time 10.5 Seconds (9.0-12.0)
[2020-03-27 14:42] LABS: BUN Creatinine Ratio 44.6 (10-20); Calcium 8.8 mg/dl (8.5-10.1); Creatinine Clr Calc Pharmacy 59.1 ml/min; Est GFR (African American) 107.4; Est GFR (Non-African American) 92.7; Potassium 4.4 mmol/L (3.5-5.1)
--- NOTE | 2020-03-27 15:22 | Electrocardiogram Report ---
Test Reason : Blood Pressure : / mmHG Vent. Rate : 057 BPM Atrial Rate : 057 BPM P-R Int : 158 ms QRS Dur : 106 ms QT Int : 452 ms P-R-T Axes : 052 -16 016 degrees QTc Int : 439 ms Sinus bradycardia Septal infarct (cited on or before 27-MAR-2020) Abnormal ECG When compared with ECG of 17-NOV-2019 12:50, Vent. rate has decreased BY 30 BPM Serial changes of Septal infarct Present Confirmed by Rich Espinoza ([id number]) on 03/27/2020 3:22:00 PM Referred By: Farrukh Reilly Confirmed By:Rich Espinoza
--- NOTE | 2020-03-29 12:30 | History & Physical Report ---
Date of Service March 29, 2020 Assessment & Plan (1) Rotator cuff arthropathy of right shoulder: We will proceed with a right reverse shoulder arthroplasty. We did receive clearance from Dr. Espinoza but he would like to be a part of her postoperative recovery. He will be consulted postoperatively. She will be kept overnight in the hospital for postoperative medical management. She plans to go to [facility] upon discharge. Present on Admission?: Yes History of Present Illness Chief Complaint: Rotator cuff arthropathy of the right shoulder Primary Care Provider: AV Morales Ashley is a pleasant 79-year-old female who is been doing with chronic increasing right shoulder pain. 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 I have done multiple aspirations and injections of her right shoulder. Her right shoulder is limiting her quality of life and she cannot live with the way it is. After failing conservative treatment, she has elected to proceed with a right reverse shoulder arthroplasty. Allergies Allergy/AdvReac Type Severity Reaction Status Date / Time acetaminophen Allergy Unknown DIZZINESS/D Verified 03/20/20 15:37 IAPHORETIC amlodipine Allergy Unknown SWOLLEN Verified 03/20/20 15:37 LEGS clonidine Allergy Unknown "VARIETY Verified 03/20/20 15:37 OF COMPLICATIONS" latex Allergy Unknown RASH Verified 03/20/20 15:37 losartan Allergy Unknown "MULTIPLE Verified 03/20/20 15:37 PROBLEMS" spironolactone Allergy Unknown "MULTIPE Verified 03/20/20 15:37 PROBLEMS", COULD NOT TOLERATE terazosin Allergy Unknown SWOLLEN Verified 03/20/20 15:37 LEGS hydrochlorothiazide AdvReac Unknown "COULD NOT Verified 03/20/20 15:37 TOLERATE" lisinopril AdvReac Unknown Per PT Verified 03/20/20 15:37 raised BP metoprolol AdvReac Unknown COULD NOT Verified 03/20/20 15:37 TOLERATE Sulfa (Sulfonamide AdvReac Unknown "COULD NOT Verified 03/20/20 15:37 Antibiotics) TOLERATE" Home Medications Home Medications Medication Instructions Recorded Confirmed Type amoxicillin 500 mg tablet 2,000 mg PO ONCE PRN #4 tab 05/09/19 03/20/20 Rx walker #1 ea 05/10/19 03/20/20 Rx Refresh Optive Advanced 1 drp OPHTHALMIC (EYE) UD PRN 09/12/19 03/20/20 History cannabidiol 25 mg PO DAILY PRN 09/12/19 03/20/20 History magnesium oxide 400 mg (241.3 mg 400 mg PO BID #60 tab 12/08/19 03/20/20 Rx magnesium) tablet potassium chloride 10 mEq 10 meq PO BID #60 tab 12/08/19 03/20/20 Rx tablet,extended release(part/cryst) aspirin 81 mg tablet,delayed 81 mg PO QAM #90 tab 12/15/19 03/20/20 Rx release carvedilol 6.25 mg tablet 6.25 mg PO BID #180 tab 12/15/19 03/20/20 Rx psyllium husk 1 dose PO BID 01/11/20 03/20/20 History miscellaneous medical supply #1 ea 01/12/20 03/20/20 Rx Lactobacillus acidophilus 1 dose PO QDL 02/08/20 03/20/20 History diphenhydramine HCl 1 tab PO QPM 02/08/20 03/20/20 History turmeric 1 tab PO QAM 02/08/20 03/20/20 History levothyroxine 75 mcg tablet 75 mcg PO QAM #30 tab 02/14/20 03/20/20 Rx selenium 200 mcg capsule 200 mcg PO QAM 02/27/20 03/20/20 History sacubitril 49 mg-valsartan 51 mg 1 tab PO BID #60 tab 03/13/20 03/20/20 Rx tablet [employer] Complex 1 dose PO QPM 03/20/20 03/20/20 History Nerve Pain Away 1 dose TOPICAL DAILY PRN 03/20/20 03/20/20 History furosemide 40 mg PO QPM 03/20/20 03/20/20 History Past Med/Surg History Medical History Cardiac murmur CHF (congestive heart failure) CHF hospitalization 10/2019 [place] -- follows w/ Dr. Espinoza Chronic systolic CHF (congestive heart failure) EF 30-35% Hypertension Hypothyroidism Osteoarthritis Personal history of poliomyelitis age 12 Urinary incontinence Surgical History History of cataract surgery left Hx of eye surgery lens replacement on 09/22/19 S/P hip replacement right Family History Father Myocardial infarction Other No family history of adverse response to anesthesia Denies family history of Ovarian cancer Prostate cancer Breast cancer Colorectal cancer Social History Smoking Status: Never smoker Second Hand Exposure: No; Hx Alcohol Use: No Hx Substance Use: No Preferred Language: Serbian Communication Ability: Effective Medical Front Desk Specialist Required: No Beliefs That Will Affect Care: None marital status: Single Current Living Situation: Alone current occupational status: retired Feels Safe at Home: Yes caffeine: Yes Dental Care, Regularly: Yes Physical Activity Frequency: Does not Exercise Seatbelt Use: always Sunscreen Use: No Review of Systems Review of Systems: All systems reviewed & are unremarkable except as noted in HPI & below Physical Exam Constitutional: WD/WN, vitals as above Eyes: PERRL, conjunctivae normal, anicteric sclerae ENMT: external ear and nose normal, oropharynx normal Neck: trachea midline, no thyromegaly Respiratory: normal respiratory effort Cardiovascular: RRR, no murmur, no edema Gastrointestinal (Abdomen): normal bowel sounds, soft, nontender, no hepatosplenomegaly Musculoskeletal: Physical examination of the right shoulder reveals decreased range of motion and significant weakness. There is tenderness palpation along the anterior glenohumeral joint line. The right upper extremity is neurovascularly intact. Psychiatric: A+Ox3, euthymic affect Results & Data Results & Data ([facility]) Diagnostic Findings Radiographs of the right shoulder show some signs of osteoarthritis with blunting of the greater tuberosity and some superior migration of the humeral head on the glenoid. PG Care Time/CCT Total # of Minutes Spent Total Time Spent with Patient: Total time spent is greater than 50% in coordination of care (as documented) at patient's floor/unit and/or counseling patient: Coding Level of Care Code 93117 Initial Inpt Care Lvl 2 Diagnoses Rotator cuff arthropathy of right shoulder M12.811
[~2020-04-03 11:06] MED LIST changes: +ACETAMINOPHEN 500 MG TAB PO SCH; -BONE PO; +BUPIVACAINE 0.5 % 5 MG/1 ML PF 10ML VIAL ONE; -CAT PO; +CEFAZOLIN 1000MG 1,000 MG/7.5 ML SYR IV SCH; +FAMOTIDINE 20 MG TAB PO SCH; -FORMULA 303 PO; +GABAPENTIN 300 MG CAP PO SCH; -HYG25 PO; -JOINT EFFORT PO; -LEVO50TA PO; +LR 15ML/HR IV SCH; +LR 60ML/HR IV SCH; -MENT4GEL EXT; -PUMP1CAP PO; +ROPIVACAINE 0.5% HCL/PF 150 MG, BUPIVACAINE 0.5% MPF 30 ML, EPINEPHrine 30MG/30ML (OR U... INFIL SCH; +TRANEXAMIC ACID 1,000 MG **IV Intra-op IV SCH; +TRANEXAMIC ACID 1,000 MG **IV Pre-op IV SCH; -TURM1POW PO; -[UNRECOGNIZED DRUG - OTHER] PO; +dexAMETHasone 4 MG TAB PO SCH
[2020-04-03] MEDS ORDERED: GLYCOPYRROLATE 0.2 MG/ML VIAL ONE (12:27)
[2020-04-03] MEDS ORDERED: PROPOFOL IV EMULSION 10 MG/ML 20 ML VIAL IV ONE (12:27)
[2020-04-03] MEDS ORDERED: fentaNYL citrate 100 MCG/2 ML VIAL ONE (12:27)
[2020-04-03] MEDS ORDERED: DEXAMETHASONE SOD INJ 4 MG/ML VIAL ONE ×2 (12:27→12:42)
[2020-04-03] MEDS ORDERED: LIDOCAINE HCL 2% 2 ML VIAL/AMP(20MG/ML) INFIL ONE (12:27)
[2020-04-03] MEDS ORDERED: NEOSTIGMINE METHYLSULFATE 5 MG/5 ML SYR ONE (12:27)
[2020-04-03] MEDS ORDERED: MIDAZOLAM HCL 1 MG/ML 2ML VIAL ONE (12:27)
[2020-04-03] MEDS ORDERED: ONDANSETRON INJ 2 MG/ML 2 ML VIAL ONE (12:27)
--- NOTE | 2020-04-03 12:38 | History & Physical Bridge Note ---
Date of Service April 03, 2020 History & Physical Bridge Note I have examined the patient, reviewed the History & Physical and in the interval since the performance of the History & Physical I have noted the following changes of clinical significance: no changes noted
[2020-04-03] MEDS ORDERED: ROPIVACAINE 0.5% 5 MG/ML 30 ML VIAL ONE (12:42)
[2020-04-03] MEDS ORDERED: ATROPINE SULFATE 0.1 MG/ML 10ML SYR IV PRN (12:57)
[2020-04-03] MEDS ORDERED: HYDROmorphone INJ 2 MG/ML SYR/VIAL IV PRN (12:57)
[2020-04-03] MEDS ORDERED: fentaNYL citrate 100 MCG/2 ML VIAL IV PRN (12:57)
[2020-04-03] MEDS ORDERED: ePHEDrine sulfate 50 MG/ML AMP IV PRN (12:57)
[2020-04-03] MEDS ORDERED: ONDANSETRON INJ 2 MG/ML 2 ML VIAL IV PRN ×2 (12:57→16:08)
[2020-04-03] MEDS ORDERED: ORTHO JOINT ANESTHETIC ONE (13:02)
--- NOTE | 2020-04-03 14:26 | Operative Report ---
PG Post Operative Report Pre & Post Diagnosis Operation Date: 04/03/20 13:40 Pre-Op Diagnosis: Rotator cuff arthropathy of the right shoulder Post-Op Diagnosis: Rotator cuff arthropathy of the right shoulder I identified the patient and participated in the time-out.: Yes Procedure Operation Date: 04/03/20 13:40 Actual Procedures p Right Reverse Total Shoulder Arthroplasty(Right) - Farrukh Reilly DO Surgeon Farrukh Reilly DO Bankruptcy Manager Farrukh Luna PAC Estimated Blood Loss 200 Findings Consistent with Post-Op Diagnosis Specimens Right humeral head Complications none Disposition Disposition: Recovery Room Indications Elin is a pleasant 79-year-old female who presented to my office with chronic pain and weakness of her right shoulder. She has also had chronic effusions. X-rays and clinical examination were diagnostic for cuff arthropathy of the right shoulder. After failing years of conservative treatment, she elected to proceed with a right reverse shoulder arthroplasty. Description of Procedure Implants used: I used a [employer] Comprehensive reverse total shoulder arthroplasty system with a size 6 press fit micro humeral stem, a +6 humeral tray and a standard humeral be aring, a 25 mm small augment baseplate with a 6.5 mm central screw and superior and inferior locking screws, and a size 40 eccentric glenosphere. Elin arrived at [facility] for the above procedure. She was seen in the preoperative holding area and the operative extremity was identified and signed. She was given a preoperative antibiotic, TXA, and an interscalene nerve block. She was taken back to the operating room, laid on table in supine position, and put under general anesthesia. She was then put into the beachchair position. The shoulder was then prepped and draped in sterile fashion. A timeout was done and the patient and the operative extremity was properly identified. A deltopectoral approach was used. Dissection was taken down through the fascia and the deltoid was retracted laterally and the conjoined tendon was retracted medially. The anterior shoulder was exposed. The biceps tendon was traumatically torn. The subscapularis was then directly released off the lesser tuberosity with a peel technique. The inferior capsule was released and the humeral head was dislocated. A canal finding reamer was sent down the center of the humeral canal. Seque ntial reaming up to a size 6 reamer was done. Off that reamer, a proximal humeral resection guide was placed. The proximal humerus was resected at 135 of inclination and 25 of retroversion. Osteophytes were then removed and the glenoid was exposed. Time was spent doing a complete capsular and labral release. The glenoid guide was then placed in the inferior aspect of the glenoid. A 3.2 mm Steinmann pin was then placed into the glenoid vault at 10 of inclination. The glenoid baseplate was then reamed. The final size 25 mm small augment baseplate was then impacted in the place. A 6.5 mm central screw was then placed followed by superior and inferior locking screws. A 40 mm eccentric glenosphere was then impacted into place. Surrounding soft tissues were then injected with 100 cc an orthopedic pain control cocktail. The proximal humerus was then exposed. Sequential broaching of the humerus up to a size 6 broach was done. Off that broach a +6 humeral tray was trialed. The shoulder was then reduced, brought through a full range of motion, and felt to be stable. The shoulder was then dislocated and the broach was removed. The final size 6 micro press-fit humeral stem was then impacted into place. A standard humeral bearing was then snapped onto a +6 humeral tray. The humeral tray was then impacted onto the humeral stem. The shoulder was once again reduced, brought through a full range of motion, and felt to be stable. The subscapularis was not repairable. A dilute betadyne lavage was then done for 3 minutes. The joint was then irrigated with normal saline solution. Hemostasis was obtained. The interval was closed with 2-0 Vicryl suture. The skin was then closed with 2-0 Vicryl and jared. A Silverlon dressing was placed and the arm was rested in a regular arm sling. She was then extubated and transferred to a hospital bed. She taken to the postanesthesia care unit in stable condition. She tolerated the procedure well. Farrukh Luna PA-C, was present for the entire procedure. He was critical for patient positioning, prepping, draping, retraction exposure, wound closure and application of sterile dressing. I attest to the content of the Intraoperative Record and any orders documented therein. Any exceptions are noted below.
[2020-04-03] MEDS ORDERED: SUGAMMADEX SODIUM 200 MG/2 ML VIAL IV ONE (14:31)
--- NOTE | 2020-04-03 15:19 | XRay Report ---
XR shoulder RT min 2V routine CLINICAL HISTORY: Post shoulder surgery COMPARISON STUDY: Right shoulder 12/17/2018. FINDINGS: Status post reverse right total shoulder arthroplasty. The hardware is intact. No fracture or dislocation. Skin jared are in place. IMPRESSION: Status post reverse right total shoulder arthroplasty. No evidence for hardware complica tion. ACT 112: Negative or not required by law. Electronically signed by: Vikash German M.D. 04/03/2020 3:18 PM
--- NOTE | 2020-04-03 15:27 | Anesthesiology Progress Note ---
Date of Service April 03, 2020 Anesthesia Post Procedure Vital Signs Vital Signs: Temp Pulse Pulse Resp BP Pulse Ox 04/03/20 15:20 63 20 166/76 H 100 04/03/20 15:10 71 22 153/87 H 100 04/03/20 15:00 64 14 164/87 H 100 04/03/20 14:51 36.1 C L 64 16 170/86 H 100 04/03/20 12:13 36.8 C 98 H 18 160/75 H 98 Pain Intensity Right Shoulder: Pain Intensity: 0 Transfer of Care Handoff Completed per policy Notes Mental Status: alert / awake / arousable Patient Amnestic to Procedure: Yes Nausea / Vomiting: adequately controlled Pain: adequately controlled Airway Patency, RR, SpO2: stable & adequate BP & HR: stable & adequate Hydration State: stable & adequate Anesthetic Complications: no major complications apparent
[2020-04-03] MEDS ORDERED: HYDROmorphone INJ 0.5 MG/0.5 ML SYR IV PRN (16:08)
[2020-04-03] MEDS ORDERED: MAGNESIUM HYDROXIDE SUSP 30 ML UDC PO PRN (16:08)
[2020-04-03] MEDS ORDERED: NALOXONE HCL 0.4 MG/1 ML VIAL/CARP IV PRN (16:08)
[2020-04-03] MEDS ORDERED: bisacodyL 10 MG SUPP PR PRN (16:08)
[2020-04-03] MEDS ORDERED: METOCLOPRAMIDE HCL INJ 5 MG/ML 2 ML VIAL IV PRN (16:08)
[2020-04-03] MEDS ORDERED: ARTIFICIAL TEARS OP PRN (16:08)
[2020-04-03] MEDS ORDERED: FUROSEMIDE 40 MG TAB PO SCH (17:30)
[2020-04-03] MEDS: SODIUM CHLORIDE 0.9% 1000ML 1,000 ML IV SCH (19:57)
[2020-04-03] MEDS ORDERED: SENNA 8.6 MG TAB PO SCH (21:00)
[2020-04-03] MEDS: ACETAMINOPHEN 500 MG TAB PO SCH (21:31)
[2020-04-03] MEDS: MAGNESIUM OXIDE 400 MG TAB PO SCH (21:35)
[2020-04-03] MEDS: POTASSIUM CHLORIDE 10 MEQ TABCR PO SCH (21:35)
[2020-04-03] MEDS: DOCUSATE SODIUM 100 MG CAP PO SCH (21:35)
[2020-04-03] MEDS: carvediloL 6.25 MG TAB PO SCH (21:36)
[2020-04-03] MEDS: SACUBITRIL-VALSARTAN 49/51 MG TAB PO SCH (21:36)
[2020-04-03] MEDS ORDERED: COUGH DROP (SUGAR FREE) LOZ 24 LOZ/1 BOX BUCCAL PRN (21:42)
[2020-04-03] MEDS: CEFAZOLIN 2000MG 2,000 MG/15 ML SYR IV SCH (21:48)
[2020-04-04] MEDS: ACETAMINOPHEN 500 MG TAB PO SCH ×3 (05:17→13:50)
[2020-04-04] MEDS: CEFAZOLIN 2000MG 2,000 MG/15 ML SYR IV SCH (05:20)
[2020-04-04] MEDS: SODIUM CHLORIDE 0.9% 1000ML 1,000 ML IV SCH (05:36)
[2020-04-04 06:02] LABS: Hematocrit (blood only) 29.5 % (37-47); Hemoglobin 9.8 g/dL (12.0-16.0); Immature Granulocytes # (auto) 0.01 K/uL (0.00-0.02); Immature Granulocytes % (auto) 0.1 %; Lymphocytes # (auto) 0.58 K/uL (1.2-3.4); Lymphocytes % (auto) 5.1 %; Mean Corpuscular Hemoglobin 30.3 pg (25-34); Mean Corpuscular Hgb Conc 33.2 g/dL (32-36); Mean Corpuscular Volume 91.3 fL (80-100); Mean Platelet Volume 11.8 fL (7.4-10.4); Monocytes # (auto) 0.58 K/uL (0.11-0.59); Monocytes % (auto) 5.1 %; Neutrophils # (auto) 10.18 K/uL (1.4-6.5); Neutrophils % (auto) 89.7 %; Platelet Count 221 K/uL (130-400); RDW Coefficient of Variation 14.6 % (11.5-14.5); RDW Standard Deviation 49.7 fL (36.4-46.3); Red Blood Count 3.23 M/uL (4.2-5.4); White Blood Count 11.35 K/uL (4.8-10.8)
[2020-04-04 06:29] LABS: BUN Creatinine Ratio 24.4 (10-20); Calcium 7.9 mg/dl (8.5-10.1); Creatinine Clr Calc Pharmacy 27.8 ml/min; Est GFR (African American) 59.6; Est GFR (Non-African American) 51.4; Potassium 4.1 mmol/L (3.5-5.1)
[2020-04-04] MEDS ORDERED: LEVOTHYROXINE SODIUM 75 MCG TABLET PO SCH (06:30)
--- NOTE | 2020-04-04 07:03 | Orthopedic Progress Note ---
Date of Service April 04, 2020 Assessment & Plan (1) Status post reverse arthroplasty of right shoulder: Overall she is doing very well. She is not having much pain in the right shoulder. She will be seen by physical therapy today for ambulation and range of motion exercises. She is going to discuss things with case management. Her and her family feel that she needs to go to a snf facility. She is orthopedically stable for discharge to a snf facility later today if a bed is available and her insurance authorizes it. Present on Admission?: No Admission and Anticipated Discharge Date Admission Date: April 03, 2020 Subjective Alem was seen and examined at bedside this morning. Overall she is doing fairly well. She is not having much pain in the right shoulder. She was able to get some sleep last night. She has no complaints. Physical Exam Musculoskeletal: On physical examination of the right shoulder, the dressing is clean and dry. Her radial, median, and ulnar nerves are checked intact at her wrist. She is wearing a sling as instructed. Results & Data ([facility]) Vital Signs (Past 12 Hours) Vital Signs Temp Pulse Resp BP Pulse Ox 04/04/20 03:26 36.5 C 72 20 108/70 95 04/03/20 23:00 36.5 C 73 20 95/57 L 95 04/03/20 19:30 36.4 C L 76 18 101/66 98 Laboratory Results H & H 03/27/20 04/04/20 Range/Units 13:09 05:21 Hgb 12.7 9.8 L (12.0-16.0) g/dL Hct 38.1 29.5 L (37-47) % Coagulation 03/27/20 Range/Units 13:09 INR 1.0 (0.9-1.1) Diagnostic Findings Postoperative x-rays of the right shoulder show the prosthesis to be in anatomic alignment without any evidence of fracture, dislocation, or loosening. PG Care Time/CCT Total # of Minutes Spent Total Time Spent with Patient: Total time spent is greater than 50% in coordination of care (as documented) at patient's floor/unit and/or counseling patient: Coding Level of Care Code None Diagnoses Status post reverse arthroplasty of right shoulder Z96.611
[2020-04-04] MEDS ORDERED: dexAMETHasone 4 MG TAB PO SCH (08:00)
[2020-04-04] MEDS: OXYCODONE HCL IR 5 MG TAB (IMMEDIATE RELEASE) PO PRN ×2 (08:20→13:53)
[2020-04-04] MEDS: DOCUSATE SODIUM 100 MG CAP PO SCH (08:21)
[2020-04-04] MEDS: SACUBITRIL-VALSARTAN 49/51 MG TAB PO SCH (08:21)
[2020-04-04] MEDS: carvediloL 6.25 MG TAB PO SCH (08:21)
[2020-04-04] MEDS: POTASSIUM CHLORIDE 10 MEQ TABCR PO SCH (08:22)
[2020-04-04] MEDS: MAGNESIUM OXIDE 400 MG TAB PO SCH (08:22)
[2020-04-04] MEDS ORDERED: MULTIVITAMIN TAB PO SCH (09:00)
[2020-04-04] MEDS ORDERED: ASPIRIN 81 MG ECTAB PO SCH (09:00)
--- NOTE | 2020-04-04 10:13 | Cardiology Consultation ---
Date of Consultation April 04, 2020 Assessment & Plan (1) Cardiomyopathy: Mrs. Qureshi is a 79-year-old female with a history of Chronic Systolic CHF, Cardiomyopathy (LVEF 30% to 35%), Hypertension, Mild Concentric LVH, Moderate Mitral Regurgitation, Hyponatremia, and Hypothyroidism -- she is POD#1 Right R- TSA yesterday and has a post-operative anemia with a Hgb of 9.8 gm/dl. We were consulted for post-op medical and cardiac management. She is doing well from a cardiac standpoint as well -- she received IVF's yesterday for a period of time but they have been discontinued. She has a positive fluid balance 1931 mL. Her weight on admission was 105 pounds (her dry weight is 105 to 108 pounds). She has not had any symptoms suggestive of CHF since being admitted and she currently appears euvolemic. Recommend the following: -- Monitor daily I&O's. -- Monitor daily body weights. -- Continue Coreg 6.25 mg b.i.d.. -- Continue Entresto 49-51 mg b.i.d.. -- Continue Aspirin 81 mg daily. -- Continue Lasix 40 mg daily. -- Continue Potassium Chloride 10 mEq b.i.d.. -- Monitor daily BMP. -- Maintain a 2 gram low sodium diet. (2) Chronic systolic CHF (congestive heart failure): -- She is currently euvolemic. -- Continue management as outlined above. (3) Status post reverse arthroplasty of right shoulder: -- Management as per Dr. Reilly. -- DVT prophylaxis. -- Monitor H&H, maintain Hgb > 8.5 gm/dl. History of Present Illness Reason for Consultation: -- Post-op Cardiac Management. -- Cardiomyopathy. -- Chronic Systolic CHF. Requesting Physician: Farrukh Reilly DO Attending Physician: Juan Prabhakar MD History of Present Illness Mrs. Qureshi is a 79-year-old female with a history of Chronic Systolic CHF, Cardiomyopathy (LVEF 30% to 35%), Hypertension, Mild Concentric LVH, Moderate Mitral Regurgitation, Hyponatremia, and Hypothyroidism -- who underwent Right R- TSA yesterday. We were consulted for post-op medical and cardiac management. Her only complaint is that her right is starting to as the anesthetic agent/nerve block is wearing off. She is doing well from a cardiac standpoint as well -- she received IVF's yesterday for a period of time but they have been discontinued. She has a positive fluid balance 1931 mL. Her weight on admission was 105 pounds (her dry weight is 105 to 108 pounds). She denies any SOB, CHOWDHURY, orthopnea, or PND. She denies any chest pain, pressure, heaviness, or tightness. She denies any palpitations, syncope, or near syncope. She has developed a post-operative anemia with a Hgb of 9.8 gm/dl. HISTORICAL BACKGROUND: Her cardiac history dates back to September of 2019 when she was undergoing an evaluation for an upcoming right reverse total shoulder arthroplasty. An Abnormal EKG performed on 09/13/2019 noted normal sinus rhythm, left axis deviation, and an old anteroseptal infarction. The patient had never known of a cardiac event, never had a cardiac catheterization, and she had never experienced exertional chest pain or angina pectoris. Patient was subsequently admitted to [facility] from 11/10/2019 through 11/15/2019 for acute on chronic systolic heart failure exacerbation. She presented with a 4 day history of orthopnea, PND, shortness of breath, and edema. Echocardiogram demonstrated a reduced EF of 30%-35%. Troponin was mildly elevated. Patient responded well to IV diuretics. She was initiated on low-dose Carvedilol and Lisinopril. Patient was discharged on Lasix 40 mg daily as well as potassium and a magnesium supplement. She had a history of hyponatremia (baseline 130) and was also discharged on sodium tablets. [facility] Heart Failure Program was consulted at discharge. Patient then presented to the ED on 11/17/2019 with shortness of breath. She was treated with IV Lasix in the ED and had improvement in her symptoms. She was discharged to home from the ER. Patient was initially evaluated in the [facility] Heart Failure Program on 12/06/2019. She was slightly hypervolemic. She continued Lasix 40 mg daily. She had a phone update on 12/20/2019 and was stable. Nuclear Stress Test reviewed, technically limited. Cardiac Catheterization not recommended at that time per Dr. Espinoza. Lisinopril was increased from 2.5 mg to 5 mg daily. Follow up labs demonstrated stable kidney function and electrolytes. She was then reevaluated on 01/11/2020. She was hypervolemic. She was advised to increase Lasix to 80 mg daily x 3 days then resume 40 mg daily. Dry weight 107- 108 lb. At her follow-up appointment on 01/25/2020 -- Lisinopril was discontinued and patient transitioned to Entresto 24-26 mg b.i.d. -- which she tolerated without side effects. Follow-up blood work on 02/07/2020 showed stable renal function, mildly elevated BUN, and normal electrolytes including normal sodium, normal magnesium, and normal potassium levels. Recent Cardiac Studies: ECHOCARDIOGRAM 11/11/19: -- Left ventricular systolic function is moderately reduced. -- LVEF 30%-35%. -- Moderate global hypokinesis of the LV. -- Mild concentric LVH. -- Moderate mitral regurgitation. Allergies Allergy/AdvReac Type Severity Reaction Status Date / Time acetaminophen Allergy Unknown DIZZINESS/D Verified 04/03/20 12:00 IAPHORETIC amlodipine Allergy Unknown SWOLLEN Verified 04/03/20 12:00 LEGS clonidine Allergy Unknown "VARIETY Verified 04/03/20 12:00 OF COMPLICATIONS" latex Allergy Unknown RASH Verified 04/03/20 12:00 losartan Allergy Unknown "MULTIPLE Verified 04/03/20 12:00 PROBLEMS" spironolactone Allergy Unknown "MULTIPE Verified 04/03/20 12:00 PROBLEMS", COULD NOT TOLERATE terazosin Allergy Unknown SWOLLEN Verified 04/03/20 12:00 LEGS hydrochlorothiazide AdvReac Unknown "COULD NOT Verified 04/03/20 12:00 TOLERATE" lisinopril AdvReac Unknown Per PT Verified 04/03/20 12:00 raised BP metoprolol AdvReac Unknown COULD NOT Verified 04/03/20 12:00 TOLERATE Sulfa (Sulfonamide AdvReac Unknown "COULD NOT Verified 04/03/20 12:00 Antibiotics) TOLERATE" Home Medications Home Medications Medication Instructions Recorded Confirmed Type amoxicillin 500 mg tablet 2,000 mg PO ONCE PRN #4 tab 05/09/19 04/03/20 Rx walker #1 ea 05/10/19 03/20/20 Rx Refresh Optive Advanced 1 drp OPHTHALMIC (EYE) UD PRN 09/12/19 04/03/20 History cannabidiol 25 mg PO DAILY PRN 09/12/19 04/03/20 History magnesium oxide 400 mg (241.3 mg 400 mg PO BID #60 tab 12/08/19 04/03/20 Rx magnesium) tablet potassium chloride 10 mEq 10 meq PO BID #60 tab 12/08/19 04/03/20 Rx tablet,extended release(part/cryst) aspirin 81 mg tablet,delayed 81 mg PO QAM #90 tab 12/15/19 04/03/20 Rx release psyllium husk 1 dose PO BID 01/11/20 04/03/20 History miscellaneous medical supply #1 ea 01/12/20 03/20/20 Rx Lactobacillus acidophilus 1 dose PO QDL 02/08/20 04/03/20 History diphenhydramine HCl 1 tab PO QPM 02/08/20 04/03/20 History turmeric 1 tab PO QAM 02/08/20 04/03/20 History levothyroxine 75 mcg tablet 75 mcg PO QAM #30 tab 02/14/20 04/03/20 Rx selenium 200 mcg capsule 200 mcg PO QAM 02/27/20 04/03/20 History sacubitril 49 mg-valsartan 51 mg 1 tab PO BID #60 tab 03/13/20 04/03/20 Rx tablet Green Foods Complex 1 dose PO QPM 03/20/20 04/03/20 History Nerve Pain Away 1 dose TOPICAL DAILY PRN 03/20/20 04/03/20 History furosemide [Lasix] 40 mg PO QPM 03/20/20 04/03/20 History carvedilol [Coreg] 6.25 mg PO BID 04/03/20 04/03/20 History sodium chloride [[place] Saline] 1 spray INTRANASAL BID PRN 04/03/20 04/03/20 History tramadol 50 mg PO Q6H PRN #30 tab 04/04/20 Rx Patient History Medical History Cardiac murmur Moderate MR on echo 11/11/19 CHF (congestive heart failure) CHF hospitalization 10/2019 [place] -- follows w/ Dr. Espinoza Chronic systolic CHF (congestive heart failure) EF 30-35%. Now on Entresto, following with [facility] cardio and CHF clinic. Medications still being titrated, will have f/u echo once medications are fully optimized. Hypertension Hypothyroidism Osteoarthritis Personal history of poliomyelitis age 12 Urinary incontinence Surgical History History of cataract surgery left Hx of eye surgery lens replacement on 09/22/19 S/P hip replacement right Status post reverse arthroplasty of right shoulder (~03/2020) Family History Father Myocardial infarction Other No family history of adverse response to anesthesia Denies family history of Ovarian cancer Prostate cancer Breast cancer Colorectal cancer Social History Smoking Status: Never smoker Second Hand Exposure: No; Do You Dip or Chew Tobacco: No; Hx Alcohol Use: No Hx Substance Use: No Preferred Language: Scottish Communication Ability: Effective Dispute Coordinator Required: No Beliefs That Will Affect Care: None marital status: Single Current Living Situation: Family current occupational status: retired Feels Safe at Home: Yes Safety Concerns: Feels Safe At This Time caffeine: Yes Dental Care, Regularly: Yes Physical Activity Frequency: Does not Exercise Seatbelt Use: always Sunscreen Use: No Assistive Devices: Glasses Physical Exam Physical Exam: GENERAL: Patient in no acute distress. HEENT: Head is atraumatic, normocephalic. EOM's intact. Facies symmetric. No perioral cyanosis. NECK: No JVD. JVP is at the level of the clavicle sitting upright. CHEST/LUNGS: Clear to auscultation throughout all lung renteria. No wheezes, rales, or crackles. Marked kyphotic deformity of the thoracic spine. CVS: S1 and S2 are regular, distant without obvious murmurs, gallops, or rubs. PMI is not palpated. No lifts, heaves, or thrills. No abdominal aortic or renal bruits. ABDOMINAL EXAM: Bowel sounds are present. No masses, organomegaly, or tenderness. EXTREMITIES: No clubbing or cyanosis. Trace pretibial edema bilaterally. Intact radial pulses bilaterally. RUE is in a sling. NEUROLOGIC EXAM: Patient is awake, alert, and oriented. Pleasant and cooperative. Answers questions appropriately. Speech is clear. Results & Data ([facility]) Vital Signs (Past 12 Hours) Vital Signs Temp Pulse Resp BP Pulse Ox 04/04/20 08:16 36.8 C 78 18 142/85 H 98 04/04/20 03:26 36.5 C 72 20 108/70 95 04/03/20 23:00 36.5 C 73 20 95/57 L 95 Laboratory Results Laboratory Results - last 24 hr 04/03/20 04/03/20 04/04/20 11:35 11:35 05:21 WBC 11.35 H RBC 3.23 L Hgb 9.8 L Hct 29.5 L MCV 91.3 MCH 30.3 MCHC 33.2 RDW Std Deviation 49.7 H RDW Coeff of Bairon 14.6 H Plt Count 221 MPV 11.8 H Immature Gran % (Auto) 0.1 Neut % (Auto) 89.7 Lymph % (Auto) 5.1 Hendricks % (Auto) 5.1 Eos % (Auto) 0.0 Baso % (Auto) 0.0 Neut # (Auto) 10.18 H Lymph # (Auto) 0.58 L Hendricks # (Auto) 0.58 Eos # (Auto) 0.00 Baso # (Auto) 0.00 Immature Gran # (Auto) 0.01 Sodium Potassium Chloride Carbon Dioxide Anion Gap BUN Creatinine Est Cr Clr Drug Dosing Est GFR ( Amer) Est GFR (Non-Af Amer) BUN/Creatinine Ratio Glucose Calcium COVID-19 Eval Order Covid19 IDNow [facility] SARS-CoV-2, RNA, NAAT NEGATIVE 04/04/20 05:21 WBC RBC Hgb Hct MCV MCH MCHC RDW Std Deviation RDW Coeff of Bairon Plt Count MPV Immature Gran % (Auto) Neut % (Auto) Lymph % (Auto) Hendricks % (Auto) Eos % (Auto) Baso % (Auto) Neut # (Auto) Lymph # (Auto) Hendricks # (Auto) Eos # (Auto) Baso # (Auto) Immature Gran # (Auto) Sodium 137 Potassium 4.1 Chloride 103 Carbon Dioxide 25 Anion Gap 8.0 BUN 25 H Creatinine 1.04 Est Cr Clr Drug Dosing 27.8 Est GFR ( Amer) 59.6 Est GFR (Non-Af Amer) 51.4 BUN/Creatinine Ratio 24.4 H Glucose 135 H Calcium 7.9 L COVID-19 Eval Order SARS-CoV-2, RNA, NAAT Medications Administered Active Medications Generic Name Dose Route Start Last Admin Trade Name Freq PRN Reason Stop Dose Admin Acetaminophen 1,000 mg 04/03/20 22:00 04/04/20 05:34 Acetaminophen 500 Mg Tab PO 05/03/20 21:59 Not Given Q8 AYO Artificial Tears 1 drops 04/03/20 16:08 Artificial Tears OP 05/03/20 16:07 UD PRN Dry Eyes Aspirin 81 mg 04/04/20 09:00 04/04/20 08:21 Aspirin 81 Mg Ectab PO 05/04/20 08:59 81 mg QAM AYO Administration Bisacodyl 10 mg 04/03/20 16:08 Bisacodyl 10 Mg Supp MA 05/03/20 16:07 DAILY PRN Constipation Carvedilol 6.25 mg 04/03/20 21:00 04/04/20 08:21 Carvedilol 6.25 Mg Tab PO 05/03/20 20:59 6.25 mg BID AYO Administration Diphenhydramine HCl 25 mg 04/03/20 21:00 04/03/20 21:32 Diphenhydramine Hcl 25 Mg Cap PO 05/03/20 20:59 Not Given QPM AYO Docusate Sodium 100 mg 04/03/20 21:00 04/04/20 08:21 Docusate Sodium 100 Mg Cap PO 05/03/20 20:59 100 mg BID AYO Administration Furosemide 40 mg 04/03/20 17:30 04/03/20 19:52 Furosemide 40 Mg Tab PO 05/03/20 17:29 40 mg QDD AYO Administration Hydromorphone HCl 0.5 mg 04/03/20 16:08 Hydromorphone Inj 0.5 Mg/0.5 Ml Syr IV 04/17/20 16:07 Q4H PRN Pain or Pre PT Levothyroxine Sodium 75 mcg 04/04/20 06:30 04/04/20 05:17 Levothyroxine Sodium 75 Mcg Tablet PO 05/04/20 06:29 75 mcg DAILYBB AYO Administration Magnesium Hydroxide 30 ml 04/03/20 16:08 Magnesium Hydroxide Susp 30 Ml Udc PO 05/03/20 16:07 Q6H PRN Constipation Magnesium Oxide 400 mg 04/03/20 21:00 04/04/20 08:22 Magnesium Oxide 400 Mg Tab PO 05/03/20 20:59 400 mg BID AYO Administration Menthol 1 yulisa 04/03/20 21:42 Cough Drop (Sugar Free) Yulisa 24 Yulisa/1 Box BUCCAL 05/03/20 21:41 PRN PRN NURSING DECISION Metoclopramide HCl 10 mg 04/03/20 16:08 Metoclopramide Hcl Inj 5 Mg/Ml 2 Ml Vial IV 05/03/20 16:07 Q6H PRN Nausea And Vomiting Multivitamins 1 tab 04/04/20 09:00 04/04/20 08:22 Multivitamin Tab PO 05/04/20 08:59 1 tab QAM AYO Administration Naloxone HCl 0.1 mg 04/03/20 16:08 Naloxone Hcl 0.4 Mg/1 Ml Vial/Carp IV 05/03/20 16:07 Q5M PRN Oversedation/Resp Depression Ondansetron HCl 4 mg 04/03/20 16:08 Ondansetron Inj 2 Mg/Ml 2 Ml Vial IV 05/03/20 16:07 Q6H PRN Nausea And Vomiting Oxycodone HCl 5 - 10 mg 04/03/20 16:08 04/04/20 08:20 Oxycodone Hcl Ir 5 Mg Tab (Immediate Release) PO 04/17/20 16:07 5 mg Q4H PRN Administration Pain or Pre PT Potassium Chloride 10 meq 04/03/20 21:00 04/04/20 08:22 Potassium Chloride 10 Meq Tabcr PO 05/03/20 20:59 10 meq BID AYO Administration Sacubitril/Valsartan 1 tab 04/03/20 21:00 04/04/20 08:21 Sacubitril-Valsartan 49/51 Mg Tab PO 05/03/20 20:59 1 tab BID AYO Administration Sennosides 17.2 mg 04/03/20 21:00 04/03/20 21:35 Senna 8.6 Mg Tab PO 05/03/20 20:59 17.2 mg HS AYO Administration PG Care Time/CCT Total # of Minutes Spent Total Time Spent with Patient: Total time spent is greater than 50% in coordination of care (as documented) at patient's floor/unit and/or counseling patient: 35 Coding Level of Care Code 66399 Initial Inpt Care Lvl 3 Diagnoses Cardiomyopathy I42.9 Chronic systolic CHF (congestive heart failure) I50.22 Status post reverse arthroplasty of right shoulder Z96.611
--- NOTE | 2020-04-04 17:20 | Discharge Summary ---
Date of Service April 04, 2020 Admission HPI Per Admitting Provider Ashley is a pleasant 79-year-old female who is been doing with chronic increasing right shoulder pain. 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 I have done multiple aspirations and injections of her right shoulder. Her right shoulder is limiting her quality of life and she cannot live with the way it is. After failing conservative treatment, she has elected to proceed with a right reverse shoulder arthroplasty. Principal Diagnosis Right reverse shoulder replacement Discharge Data Allergies Allergy/AdvReac Type Severity Reaction Status Date / Time acetaminophen Allergy Unknown DIZZINESS/D Verified 04/03/20 12:00 IAPHORETIC amlodipine Allergy Unknown SWOLLEN Verified 04/03/20 12:00 LEGS clonidine Allergy Unknown "VARIETY Verified 04/03/20 12:00 OF COMPLICATIONS" latex Allergy Unknown RASH Verified 04/03/20 12:00 losartan Allergy Unknown "MULTIPLE Verified 04/03/20 12:00 PROBLEMS" spironolactone Allergy Unknown "MULTIPE Verified 04/03/20 12:00 PROBLEMS", COULD NOT TOLERATE terazosin Allergy Unknown SWOLLEN Verified 04/03/20 12:00 LEGS hydrochlorothiazide AdvReac Unknown "COULD NOT Verified 04/03/20 12:00 TOLERATE" lisinopril AdvReac Unknown Per PT Verified 04/03/20 12:00 raised BP metoprolol AdvReac Unknown COULD NOT Verified 04/03/20 12:00 TOLERATE Sulfa (Sulfonamide AdvReac Unknown "COULD NOT Verified 04/03/20 12:00 Antibiotics) TOLERATE" Consultations 04/03/20 16:08 Consult Cardiology Routine Consult Case Management - Discharge Planning Routine Procedures Performed Operation Date: 04/03/20 13:40 Actual Procedures p Right Reverse Total Shoulder Arthroplasty(Right) - Farrukh Reilly DO Ordered Studies 04/03/20 05:00 US - OR guided needle placemen Routine Hospital Course (1) Status post reverse arthroplasty of right shoulder: On April 03, 2020 Elin arrived at [facility] and underw ent a right reverse shoulder arthroplasty without complication. She had a general anesthetic and a right interscalene nerve block. Postoperatively she was placed in a sling and transferred to the general orthopedic floors. Her hospital course was uneventful. On postop day #1 her H&H was stable and her pain was well controlled. She was able to participate well with physical therapy doing ambulation and range of motion exercises. She was then discharged to [facility]. She will follow-up with orthopedics in 2 weeks. Total Time Total Time Spent Total Time Spent (In Minutes): 20 Discharge Plan Discharge Items Patient Disposition[facility] Reason For Visit: Right Shoulder Degenerative Joint Disease Discharge Diagnosis: Right reverse shoulder replacement Activity: As commented below Non-emergency contact: Surgeon Call non-emergency contact if: your wound has increased redness and your wound has increased drainage Follow-up/Referrals: Alexa Boggs CRNP [Primary Care Provider] - Diet: Regular Addtl Attending Provider Instructions: Activity and Therapy Recommendations: * If you are using [facility] then therapy will be provided at your home until they feel you have accomplished all of your goals. * If you are using [facility] then Physical Therapy will be provided until they feel you are ready to start Outpatient Physical Therapy. * If you are not using home therapy then Outpatient Physical Therapy should start about 3-5 days from your day of surgery. Therapy will last about 8-12 weeks * Wear your sling for 3 weeks, unless otherwise instructed. You may remove your sling to shower and to dress, but otherwise, you should be in your sling at all times, including while sleeping * The shoulder replacement is very stable and you can use your hand while in the sling * You were shown a series of exercises in the hospital. Do these exercises daily including the exercises you were shown in physical therapy. Medications: * Narcotic You will likely be sent home from the hospital with a prescription for the narcotic pain medication that worked best throughout your stay. * Other medications may be prescribed for specific circumstances. If you have any questions, please call the office at . * Resume previous home medications unless otherwise instructed Dressing Care: Leave the Silverlon dressing in place for 7 days. After 7 days you may remove the dressing. If the incision is not draining then you may leave the jared open to air. If there is a little bit of drainage or if the jared are getting stuck on your clothing then cover the incision with a dry dressing. The jared will be removed at your 2 week follow-up appointment. Showering: You may shower with the Silverlon dressing in place. Do not let the shower spray hit the dressing directly. Pat the Silverlon dressing dry. If the dressing becomes wet underneath, then simply remove the dressing. Keep the incision dry until you are 7 days out from the day of surgery. After 7 days you may remove the Silverlon dressing and shower with the jared exposed. Let soapy water run over the jared and pat them dry. Do not scrub or soak the incision. Things To Watch For: * Drainage from the incision site that occurs more than one week after your surgery. * Increased redness at the incision site. * Fever above 102 degrees Fahrenheit. * Unusual chest pain or shortness of breath. * Call [facility] at with any of the above problems Follow-Up Visit: Follow-up with Dr. Reilly's PA (Farrukh Luna) 2-3 weeks after your day of surgery. He will remove your jared and answer any questions. If you have any additional questions or concerns, Dr Reilly is usually in the office at the same time and will be available An appointment was probably scheduled when you signed-up for surgery in the office. If you have any questions call More detailed instructions as well as Frequently Asked Questions were provided in a folder by our office when you signed-up for surgery. Please review these instructions when you get home. If you have any further questions or concerns, please feel free to call the office at [phone] Pending Studies at Discharge: No Stand-Alone Forms: My [facility] Skilled Items Patient informed of condition?: Yes DNR: No Discharge Level of Care: Skilled Communicable Disease: No Discharge Prognosis: Improving Lines: None Urinary Catheter: No Medications and DC Order Prescriptions: New tramadol 50 mg tablet 50 mg PO Q6H PRN (Reason: pain) Qty: 30 RF: 0 Continued potassium chloride [Klor-Con M10] 10 mEq tablet,ER particles/crystals 10 meq PO BID Qty: 60 RF: 4 magnesium oxide 400 mg (241.3 mg magnesium) tablet 400 mg PO BID Qty: 60 RF: 4 aspirin 81 mg tablet,delayed release (DR/EC) 81 mg PO QAM Qty: 90 RF: 3 (DME) Hospital Bed Misc See Rx Instructions .ROUTE .MEDSUPPLY Qty: 1 RF: 0 levothyroxine [Synthroid] 75 mcg tablet 75 mcg PO QAM Qty: 30 RF: 5 Entresto 49-51 mg tablet 1 tab PO BID Qty: 60 RF: 2 psyllium husk 1 dose PO BID RF: 0 Lactobacillus acidophilus 1 dose PO QDL RF: 0 turmeric 1 tab PO QAM RF: 0 amoxicillin 500 mg tablet 2,000 mg PO ONCE PRN (Reason: prior to dental apts.) Qty: 4 RF: 1 (DME) walker misc See Dose Instructions .ROUTE .MEDSUPPLY Qty: 1 RF: 0 diphenhydramine HCl 1 tab PO QPM RF: 0 selenium 200 mcg capsule 200 mcg PO QAM RF: 0 Green Foods Complex 1 dose PO QPM RF: 0 Nerve Pain Away 1 dose topical DAILY PRN (Reason: Pain) RF: 0 furosemide [Lasix] 40 mg tablet 40 mg PO QPM RF: 0 carvedilol [Coreg] 6.25 mg tablet 6.25 mg PO BID RF: 0 sodium chloride [[place] Saline] 0.65 % Aerosol,[place] 1 spray INTRANASAL BID PRN (Reason: Nasal Congestion) RF: 0 cannabidiol 100 mg/mL Solution 25 mg PO DAILY PRN (Reason: Pain) RF: 0 Refresh Optive Advanced 0.5-1-0.5 % Drops 1 drp OPHTHALMIC (EYE) UD PRN (Reason: Dry Eyes) RF: 0 Discharge Orders: Discharge Order (Routine); Ordered 04/04/20 Ordered By: Farrukh Reilly Admission Data Admit Date/Time: 04/03/20 14:44 Attending Provider: Farrukh Reilly Admit Provider: Farrukh Reilly Primary Care Provider: Alexa Boggs Other Providers: Rich Espinoza ; Mustapha Lerma [place] Other Interventions: Discharge Summary Assessment (RN) Last Done: 04/04/20 15:37 Coding Level of Care Code D/C Day Management <30 mins Diagnoses Status post reverse arthroplasty of right shoulder Z96.611
== END 2020-04-04 16:05 | DRG 483 ==
LOC: ASU 11:06 → 3E 14:44

== ENCOUNTER 2020-04-29 13:34 | Observation (INO) ==
--- NOTE | 2020-04-29 14:16 | Emergency Department Note ---
History of Present Illness General Chief complaint: Shortness of Breath/Dyspnea Time Seen by Provider: 04/29/20 13:53 Source: patient Mode of arrival: EMS Limitations: no limitations History of Present Illness This patient is a 71-year-old white female who has a history of chronic CHF comes in after having increasing shortness of breath. She has been short of breath for a while but got increasingly worse last night. She was significantly short of breath she is feeling better today compared to last night. She had shoulder surgery done here on April 08 and since then she has had some increasing shortness of breath. At one point they did increase her Lasix. She is followed by Amy Gotti in the CHF clinic and they increased her Lasix on to twice a day from once a day. She said her blood pressure was low on Thursday when home health checked her and she has an appointment to see Amy this coming week she has chronic lower extremity edema which she feels is increased. She cannot lay flat without getting short of breath. Her current weight today was 116 at home which she says compares to 106 presurgery. No chest pain but last Thursday 1 week ago she had an episode of indigestion that lasted a couple hours. None since then. No fever chills or cough. No known exposure to Covid. She in fact has been tested negative for Covid 3 times recently, once prior to surgery and then twice when she was in the [facility] rec[facility]. [facility] from the [facility] 1 week ago. She feels her symptoms are consistent with her CHF/fluid overload type symptoms. She is on aspirin but no other blood thinners. No history of PE/DVT Home Medications Home Medications Medication Instructions Recorded Confirmed Type amoxicillin 500 mg tablet 2,000 mg PO ONCE PRN #4 tab 05/09/19 04/29/20 Rx walker #1 ea 05/10/19 04/29/20 Rx Refresh Optive Advanced 1 drp OPHTHALMIC (EYE) UD PRN 09/12/19 04/29/20 History cannabidiol 25 mg PO DAILY PRN 09/12/19 04/29/20 History magnesium oxide 400 mg (241.3 mg 400 mg PO BID #60 tab 12/08/19 04/29/20 Rx magnesium) tablet potassium chloride 10 mEq 10 meq PO BID #60 tab 12/08/19 04/29/20 Rx tablet,extended release(part/cryst) aspirin 81 mg tablet,delayed 81 mg PO QAM #90 tab 12/15/19 04/29/20 Rx release psyllium husk 1 dose PO BID 01/11/20 04/29/20 History miscellaneous medical supply #1 ea 01/12/20 04/29/20 Rx Lactobacillus acidophilus 1 dose PO QDL 02/08/20 04/29/20 History turmeric 1 tab PO QAM 02/08/20 04/29/20 History levothyroxine 75 mcg tablet 75 mcg PO QAM #30 tab 02/14/20 04/29/20 Rx sacubitril 49 mg-valsartan 51 mg 1 tab PO BID #60 tab 03/13/20 04/29/20 Rx tablet Green Foods Complex 1 dose PO QDD 03/20/20 04/29/20 History Nerve Pain Away 1 dose TOPICAL DAILY PRN 03/20/20 04/29/20 History furosemide [Lasix] 40 mg PO QPM 03/20/20 04/29/20 History carvedilol [Coreg] 6.25 mg PO BID 04/03/20 04/29/20 History sodium chloride [[place] Saline] 1 spray INTRANASAL BID PRN 04/03/20 04/29/20 History tramadol 50 mg PO Q6H PRN #30 tab 04/04/20 04/29/20 Rx [place] Allergy Homopathic 1 tab SUBLINGUAL DAILY PRN 04/29/20 04/29/20 History Allergies Allergy/AdvReac Type Severity Reaction Status Date / Time acetaminophen Allergy Unknown DIZZINESS/D Verified 04/29/20 14:24 IAPHORETIC amlodipine Allergy Unknown SWOLLEN Verified 04/29/20 14:24 LEGS clonidine Allergy Unknown "VARIETY Verified 04/29/20 14:24 OF COMPLICATIONS" latex Allergy Unknown RASH Verified 04/29/20 14:24 losartan Allergy Unknown "MULTIPLE Verified 04/29/20 14:24 PROBLEMS" spironolactone Allergy Unknown "MULTIPE Verified 04/29/20 14:24 PROBLEMS", COULD NOT TOLERATE terazosin Allergy Unknown SWOLLEN Verified 04/29/20 14:24 LEGS hydrochlorothiazide AdvReac Unknown "COULD NOT Verified 04/29/20 14:24 TOLERATE" lisinopril AdvReac Unknown Per PT Verified 04/29/20 14:24 raised BP metoprolol AdvReac Unknown COULD NOT Verified 04/29/20 14:24 TOLERATE Sulfa (Sulfonamide AdvReac Unknown "COULD NOT Verified 04/29/20 14:24 Antibiotics) TOLERATE" Past Med/Surg History Medical History Cardiac murmur Moderate MR on echo 11/11/19 CHF (congestive heart failure) CHF hospitalization 10/2019 [place] -- follows w/ Dr. Espinoza Chronic systolic CHF (congestive heart failure) EF 30-35%. Now on Entresto, following with [facility] cardio and CHF clinic. Medications still being titrated, will have f/u echo once medications are fully optimized. Hypertension Hypothyroidism Osteoarthritis Personal history of poliomyelitis age 12 Urinary incontinence Surgical History History of cataract surgery left Hx of eye surgery lens replacement on 09/22/19 S/P hip replacement right Status post reverse arthroplasty of right shoulder (~03/2020) Family History Father Myocardial infarction Other No family history of adverse response to anesthesia Denies family history of Ovarian cancer Prostate cancer Breast cancer Colorectal cancer Social History Smoking Status: Never smoker Second Hand Exposure: No; Hx Alcohol Use: No Hx Substance Use: No Preferred Language: Ivorian Communication Ability: Effective Auricular Detoxification Specialist Required: No Beliefs That Will Affect Care: None marital status: Single Current Living Situation: Family current occupational status: retired Feels Safe at Home: Yes caffeine: Yes Dental Care, Regularly: Yes Physical Activity Frequency: Does not Exercise Seatbelt Use: always Sunscreen Use: No Assistive Devices: Glasses Review of Systems A total of 10 systems reviewed and were otherwise negative Physical Exam Vital Signs Vital Signs - 24 hr 04/29/20 13:43 04/29/20 13:45 04/29/20 14:00 Temperature 36.7 C Temperature Source Oral Pulse Rate 73 83 76 Pulse Rate from SpO2 Sensor 71 76 Pulse Rhythm Respiratory Rate 22 18 22 Blood Pressure 148/96 H 148/96 H 137/89 Blood Pressure Mean 104 113 106 Pulse Oximetry 96 97 97 Oxygen Delivery Method Room Air Sepsis Recent Fever Within 48 Hours No Sepsis New/Unexplained Change in Mental Status No Sepsis Action Taken by Nursing No Action Required 04/29/20 14:11 04/29/20 14:30 04/29/20 15:00 Temperature Temperature Source Pulse Rate 83 78 74 Pulse Rate from SpO2 Sensor 77 72 Pulse Rhythm Regular Respiratory Rate 18 20 15 Blood Pressure 131/85 117/69 Blood Pressure Mean 103 81 Pulse Oximetry 97 95 96 Oxygen Delivery Method Room Air Sepsis Recent Fever Within 48 Hours Sepsis New/Unexplained Change in Mental Status Sepsis Action Taken by Nursing 04/29/20 15:30 04/29/20 16:00 04/29/20 16:30 Temperature Temperature Source Pulse Rate 65 72 79 Pulse Rate from SpO2 Sensor 62 71 73 Pulse Rhythm Respiratory Rate 14 12 22 Blood Pressure 106/61 131/78 124/96 Blood Pressure Mean 67 99 104 Pulse Oximetry 96 96 98 Oxygen Delivery Method Room Air Sepsis Recent Fever Within 48 Hours Sepsis New/Unexplained Change in Mental Status Sepsis Action Taken by Nursing 04/29/20 17:00 Temperature Temperature Source Pulse Rate 74 Pulse Rate from SpO2 Sensor Pulse Rhythm Respiratory Rate 12 Blood Pressure 131/76 Blood Pressure Mean 96 Pulse Oximetry Oxygen Delivery Method Sepsis Recent Fever Within 48 Hours Sepsis New/Unexplained Change in Mental Status Sepsis Action Taken by Nursing General: Well developed well nourished older female who is wearing supplemental oxygen and in no acute distress, breathing comfortably on room air. Normal speech HEENT: Normal cephalic atraumatic. Pupils are equal round and reactive to light. Extraocular movements are intact. Oropharynx is pink with moist mucous membranes. No swelling of the mouth lips or tongue. Neck: Supple with a midline trachea. No meningeal signs or stiffness, no JVD or bruits. No Stridor. Chest: She has crackles in the bases mostly on the left. She has chronic curvature of the spine/kyphosis. No significant increased work of breathing Heart: Regular rate and rhythm without murmurs or gallops. Abdomen: Soft nontender, nondistended without rebound guarding or rigidity. Extremities: No cyanosis or clubbing. He has bilateral lower extremity edema. Right greater than left which she says the right is chronically much more swollen than the left secondary to polio as a child.no calf tenderness Spine/Back. Non tender to palpation. No CVA tenderness Skin: Good turgor without rashes. Neurologic exam: Cranial nerves two through 12 are intact. Motor and sensation are intact and symmetrical throughout. Course Administered Medications Discontinued Medications Furosemide (Furosemide 40 Mg/4 Ml Vial) 20 mg IV NOW STA Stop: 04/29/20 15:45 Last Admin: 04/29/20 16:20 Dose: 20 mg Documented by: [id number] Medical Decision Making Differential Diagnosis CHF, pneumonia, PE, acute coronary syndrome, arrhythmia, Covid, postop complication, electrolyte or metabolic abnormality, anemia Medical Records Attestation: I reviewed the patient's medical records. Home Medications Current Medication List: was personally reviewed by me Laboratory Data Attestation: I reviewed the patient's lab results. Result diagrams: 04/29/20 14:26 04/29/20 14:26 Lab Results 04/29/20 04/29/20 04/29/20 Range/Units 14:26 14:26 14:26 WBC 4.99 (4.8-10.8) K/uL RBC 3.80 L (4.2-5.4) M/uL Hgb 11.9 L (12.0-16.0) g/dL Hct 36.2 L (37-47) % MCV 95.3 (80-100) fL MCH 31.3 (25-34) pg MCHC 32.9 (32-36) g/dL RDW Std Deviation 54.7 H (36.4-46.3) fL RDW Coeff of [place] 15.8 H (11.5-14.5) % Plt Count 286 (130-400) K/uL MPV 10.7 H (7.4-10.4) fL Immature Gran % (Auto) 0.0 % Neut % (Auto) 66.2 % Lymph % (Auto) 19.8 % Boundary % (Auto) 12.0 % Eos % (Auto) 1.6 % Baso % (Auto) 0.4 % Neut # (Auto) 3.30 (1.4-6.5) K/uL Lymph # (Auto) 0.99 L (1.2-3.4) K/uL Boundary # (Auto) 0.60 H (0.11-0.59) K/uL Eos # (Auto) 0.08 (0-0.5) K/uL Baso # (Auto) 0.02 (0-0.2) K/uL Immature Gran # (Auto) 0.00 (0.00-0.02) K/uL PT 11.2 (9.0-12.0) Seconds INR 1.1 (0.9-1.1) APTT 29.6 (21.0-31.0) Seconds PTT Ratio 1.1 Sodium 133 L (136-145) mmol/L Potassium 3.7 (3.5-5.1) mmol/L Chloride 98 (98-107) mmol/L Carbon Dioxide 27 (21-32) mmol/L Anion Gap 8.0 (3-11) BUN 25 H (7-18) mg/dl Creatinine 0.74 (0.6-1.2) mg/dl Est Cr Clr Drug Dosing 41.9 ml/min Est GFR ( Amer) 89.9 Est GFR (Non-Af Amer) 77.6 BUN/Creatinine Ratio 33.1 H (10-20) Glucose 96 (70-99) mg/dl Calcium 9.2 (8.5-10.1) mg/dl Total Bilirubin 0.7 (0.2-1) mg/dl AST 16 (15-37) U/L ALT 18 (12-78) U/L Alkaline Phosphatase 87 (45-117) U/L Troponin I 0.050 H* (0-0.045) ng/ml NT-Pro-B Natriuret Pep 54460 H (0-1800) pg/ml Total Protein 6.4 (6.4-8.2) gm/dl Albumin 3.4 (3.4-5.0) gm/dl Globulin 3.0 (2.5-4.0) gm/dl Albumin/Globulin Ratio 1.1 (0.9-2) Lipase 48 L (73-393) U/L Imaging Data Attestation: I personally reviewed and interpreted this imaging study as follows: My Impression: Chest x-raycongestive heart failure. She has chronic changes related to scoliosis Radiologist's Impression: SINGLE VIEW CHEST CLINICAL HISTORY: Atypical chest pain. FINDINGS: 2 AP, portable, upright chest radiographs are compared to study dated 03/27/2020. The examination is degraded by portable technique and patient rotation. The heart is enlarged noting atherosclerotic calcification of the thoracic aorta. There is pulmonary vascular congestion with evidence of mild interstitial edema. There are small pleural effusions with bibasilar consolidation. No pneumothorax is seen. The skeletal structures are osteopenic. The bony thorax is grossly intact. Advanced degenerative change and scoliosis is noted in the thoracic spine. The right shoulder arthroplasty is in place. Advanced arthritic change and deformity is again seen in the left shoulder. IMPRESSION: 1. Cardiomegaly with evidence of congestive failure and interstitial edema. 2. Layering pleural effusions with bibasilar consolidation. ECG Data Attestation: I personally reviewed and interpreted this ECG as follows: Indication: + SOB/dyspnea Rate (beats per minute): 73 Rhythm: + normal sinus ECG Intervals/blocks: + Left bundle branch block ECG [place]: + Left axis deviation ECG ST segments: + repolarization abnormalities ECG Findings: no PACs and no PVCs Comparison ECG Date: from (03/27/20) Change: the following changes noted (QRS has slightly increased in the left bundle branch criteria is now present) MDM Narrative This patient comes in as described above. She was placed on a court recording monitor room C10 she has had increasing shortness of breath and edema. She has a history of CHF. As an outpatient, they have increased her Lasix recently but despite this she had a episode last night where she was very short of breath most of the night. She appears better now but she does have crackles in the base and lower extremity edema, she has gained 10 pounds since her surgery. IV access was established, EKG, chest x-ray obtained. She was reassessed fr equently. Chest x-ray confirms congestive heart failure, her BNP is also elevated. Her troponin is minimally elevated at 0.05. she has no current chest pain. She does have a left bundle branch block which is new but no other definite ischemic changes and again is doing better at this point. She was given Lasix 20 mg IV, I do think she needs to be admitted/observed for further treatment and evaluation and diuresis. I have consulted Dr. Flores, the hospitalist, to see in the ER for these measures. Continuous cardiac monitoring: An order was placed in the EMR for continuous court recording monitor and was found to be in normal sinus rhythm with a rate of 81. Impression & Plan CHF (congestive heart failure), SOB (shortness of breath), Bilateral edema of lower extremity, Elevated troponin Discharge Plan Visit Data Chief Complaint: Shortness of Breath/Dyspnea ED Provider: Farrukh Bowden Discharge Problem: CHF (congestive heart failure), SOB (shortness of breath), Bilateral edema of lower extremity, Elevated troponin Patient Disposition: Admitted As Inpatient Discharge Instructions Interventions: ED Discharge Assessment Last Done: 04/29/20 18:20 Discharge Problem: CHF (congestive heart failure) Qualifiers: Heart failure type: unspecified Heart failure chronicity: acute on chronic Qualified Code(s): I50.9 - Heart failure, unspecified
[2020-04-29 14:47] LABS: Basophils # (auto) 0.02 K/uL (0-0.2); Basophils % (auto) 0.4 %; Eosinophils # (auto) 0.08 K/uL (0-0.5); Eosinophils % (auto) 1.6 %; Hematocrit (blood only) 36.2 % (37-47); Hemoglobin 11.9 g/dL (12.0-16.0); Lymphocytes # (auto) 0.99 K/uL (1.2-3.4); Lymphocytes % (auto) 19.8 %; Mean Corpuscular Hemoglobin 31.3 pg (25-34); Mean Corpuscular Hgb Conc 32.9 g/dL (32-36); Mean Corpuscular Volume 95.3 fL (80-100); Mean Platelet Volume 10.7 fL (7.4-10.4); Neutrophils % (auto) 66.2 %; Platelet Count 286 K/uL (130-400); RDW Coefficient of Variation 15.8 % (11.5-14.5); RDW Standard Deviation 54.7 fL (36.4-46.3); White Blood Count 4.99 K/uL (4.8-10.8)
--- NOTE | 2020-04-29 14:53 | XRay Report ---
SINGLE VIEW CHEST CLINICAL HISTORY: Atypical chest pain. FINDINGS: 2 AP, portable, upright chest radiographs are compared to study dated 03/27/2020. The examin ation is degraded by portable technique and patient rotation. The heart is enlarged noting atherosc lerotic calcification of the thoracic aorta. There is pulmonary vascular congestion with evidence of mild interstitial edema. There are small pleural effusions with bibasilar consolidation. No pneumotho rax is seen. The skeletal structures are osteopenic. The bony thorax is grossly intact. Advanced dege nerative change and scoliosis is noted in the thoracic spine. The right shoulder arthroplasty is in p lace. Advanced arthritic change and deformity is again seen in the left shoulder. IMPRESSION: 1. Cardiomegaly with evidence of congestive failure and interstitial edema. 2. Layering pleural effusions with bibasilar consolidation. ACT 112: Negative or not required by law. Electronically signed by: Charlie Quinn M.D. 04/29/2020 2:52 PM
[2020-04-29 15:01] LABS: INR 1.1 (0.9-1.1); Partial Thromboplastin Ratio 1.1; Partial Thromboplastin Time 29.6 Seconds (21.0-31.0); Prothrombin Time 11.2 Seconds (9.0-12.0)
[2020-04-29 15:03] LABS: Albumin Level 3.4 gm/dl (3.4-5.0); BUN Creatinine Ratio 33.1 (10-20); Calcium 9.2 mg/dl (8.5-10.1); Creatinine Clr Calc Pharmacy 41.9 ml/min; Est GFR (African American) 89.9; Est GFR (Non-African American) 77.6; Potassium 3.7 mmol/L (3.5-5.1)
[2020-04-29 15:18] LABS: Albumin Globulin Ratio 1.1 (0.9-2); Bilirubin,Total 0.7 mg/dl (0.2-1); Total Protein 6.4 gm/dl (6.4-8.2); Troponin I 0.05 ng/ml (0-0.045)
[2020-04-29] MEDS ORDERED: FUROSEMIDE 40 MG/4 ML VIAL IV STA (15:44)
--- NOTE | 2020-04-29 18:13 | History & Physical Report ---
Date of Service April 29, 2020 Assessment & Plan (1) Acute on chronic systolic (congestive) heart failure: LVEF 30 to 35%, moderate mitral regurgitation, moderate global hypokinesis left ventricle on echocardiogram in November 2019 Lasix 20 mg IV given in ER. Give additional dose IV 20 mg Lasix now. Strict I&Os Daily weights (2) Cardiomyopathy: Continue carvedilol 6.25mg PO BID with hold parameters. Continue Entresto 49-59mg 1 tab BID (3) Hypertension: Continue Entresto, carvedilol and Lasix as above. (4) Hypothyroidism: TSH WNL in December. Continue levothyroxine 75 mcg PO daily (5) Personal history of poliomyelitis: Occurred as a child. Reason for significant scoliosis of back, shortened stature and reduced lower extremity muscle mass. (6) DVT prophylaxis: Given likely short stay, pharmacological prophylaxis deferred. Admission and Anticipated Discharge Date Admission Date: 04/29/2020 Anticipated date of discharge: 04/30/20 History of Present Illness Chief Complaint: Shortness of breath Primary Care Provider: AV Morales Elin Qureshi is a 79 year old female with chronic systolic heart failure who presents to the ER with shortness of breath. This has been intermittently getting better and worse since her right shoulder operation. Associated increased leg swelling, weight gain and orthopnea. No chest pain, presyncope or syncope. No fever, chills, known COVID-19 exposure. 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 Subsequently discharged to [facility] for rehabilitation and she reports occasionally getting more Lasix there. She was discharged home from [facility] 1 week ago. She follows with Izzy Mason in the heart failure clinic and she reports her Lasix was doubled last week from 40mg PO daily to BID. Despite this her weight has continued to increase therefore decided to come to the ER. Allergies Allergy/AdvReac Type Severity Reaction Status Date / Time acetaminophen Allergy Unknown DIZZINESS/D Verified 04/29/20 14:24 IAPHORETIC amlodipine Allergy Unknown SWOLLEN Verified 04/29/20 14:24 LEGS clonidine Allergy Unknown "VARIETY Verified 04/29/20 14:24 OF COMPLICATIONS" latex Allergy Unknown RASH Verified 04/29/20 14:24 losartan Allergy Unknown "MULTIPLE Verified 04/29/20 14:24 PROBLEMS" spironolactone Allergy Unknown "MULTIPE Verified 04/29/20 14:24 PROBLEMS", COULD NOT TOLERATE terazosin Allergy Unknown SWOLLEN Verified 04/29/20 14:24 LEGS hydrochlorothiazide AdvReac Unknown "COULD NOT Verified 04/29/20 14:24 TOLERATE" lisinopril AdvReac Unknown Per PT Verified 04/29/20 14:24 raised BP metoprolol AdvReac Unknown COULD NOT Verified 04/29/20 14:24 TOLERATE Sulfa (Sulfonamide AdvReac Unknown "COULD NOT Verified 04/29/20 14:24 Antibiotics) TOLERATE" Home Medications Home Medications Medication Instructions Recorded Confirmed Type amoxicillin 500 mg tablet 2,000 mg PO ONCE PRN #4 tab 05/09/19 04/29/20 Rx walker #1 ea 05/10/19 04/29/20 Rx Refresh Optive Advanced 1 drp OPHTHALMIC (EYE) UD PRN 09/12/19 04/29/20 History cannabidiol 25 mg PO DAILY PRN 09/12/19 04/29/20 History magnesium oxide 400 mg (241.3 mg 400 mg PO BID #60 tab 12/08/19 04/29/20 Rx magnesium) tablet potassium chloride 10 mEq 10 meq PO BID #60 tab 12/08/19 04/29/20 Rx tablet,extended release(part/cryst) aspirin 81 mg tablet,delayed 81 mg PO QAM #90 tab 12/15/19 04/29/20 Rx release psyllium husk 1 dose PO BID 01/11/20 04/29/20 History miscellaneous medical supply #1 ea 01/12/20 04/29/20 Rx Lactobacillus acidophilus 1 dose PO QDL 02/08/20 04/29/20 History turmeric 1 tab PO QAM 02/08/20 04/29/20 History levothyroxine 75 mcg tablet 75 mcg PO QAM #30 tab 02/14/20 04/29/20 Rx sacubitril 49 mg-valsartan 51 mg 1 tab PO BID #60 tab 03/13/20 04/29/20 Rx tablet Green Foods Complex 1 dose PO QDD 03/20/20 04/29/20 History Nerve Pain Away 1 dose TOPICAL DAILY PRN 03/20/20 04/29/20 History furosemide [Lasix] 40 mg PO QPM 03/20/20 04/29/20 History carvedilol [Coreg] 6.25 mg PO BID 04/03/20 04/29/20 History sodium chloride [[place] Saline] 1 spray INTRANASAL BID PRN 04/03/20 04/29/20 History tramadol 50 mg PO Q6H PRN #30 tab 04/04/20 04/29/20 Rx [place] Allergy Homopathic 1 tab SUBLINGUAL DAILY PRN 04/29/20 04/29/20 History Past Med/Surg History Medical History (Updated 04/30/20 @ 07:30 by Nelson Flores MD) Cardiac murmur Moderate MR on echo 11/11/19 CHF (congestive heart failure) CHF hospitalization 10/2019 [place] -- follows w/ Dr. Espinoza Chronic systolic CHF (congestive heart failure) EF 30-35%. Now on Entresto, [place] with [facility] [place]. Medications still being titrated, will have f/u echo once medications are fully optimized. Hypertension Hypothyroidism Osteoarthritis Personal history of poliomyelitis age 12 Urinary incontinence Surgical History History of cataract surgery left Hx of eye surgery lens replacement on 09/22/19 S/P hip replacement right Status post reverse arthroplasty of right shoulder (~03/2020) Family History Father Myocardial infarction Other No family history of adverse response to anesthesia Denies family history of Ovarian cancer Prostate cancer Breast cancer Colorectal cancer Social History Smoking Status: Never smoker Second Hand Exposure: No; Hx Alcohol Use: No Hx Substance Use: No Preferred Language: Lithuanian Communication Ability: Effective Gut Snatcher Required: No Beliefs That Will Affect Care: None marital status: Single Current Living Situation: Family current occupational status: retired How many Children do You have: 0 Feels Safe at Home: Yes Safety Concerns: Feels Safe At This Time caffeine: Yes Dental Care, Regularly: Yes Physical Activity Frequency: Does not Exercise Seatbelt Use: always Sunscreen Use: No Assistive Devices: Glasses and Walker Review of Systems Review of Systems: All systems reviewed & are unremarkable except as noted in HPI & below Physical Exam Constitutional: well developed, well nourished and + frail appearing; no acute distress Eyes: + anicteric sclerae; normal pupil size ENMT: external ear and nose normal, oropharynx normal Neck: trachea midline, no thyromegaly Respiratory: normal respiratory effort and able to speak in complete sentences; no respiratory distress, no labored breathing, does not use accessory muscles and no cough Auscultation: + breath sounds absent (Left base), + di minished lung sounds (Left-sided to mid zone back) and + crackles (Right midzone); no rales, no rhonchi and no wheezes Cardiovascular: Rate/Rhythm: regular rate and regular rhythm Heart Sounds: no murmur Extremities: + edema (1+ to knees bilaterally, right calf > left) Gastrointestinal (Abdomen): Inspection/Auscultation: abdomen normal to inspection and normal bowel sounds; abdomen not distended Percussion/Palpation: abdomen soft; abdomen nontender, no guarding and abdomen not rigid Musculoskeletal: Spine: + scoliosis (Significant thoracic) Skin: no rashes, warm and dry (No areas of cellulitis) Neurologic: moves all extremities and awake; no focal motor deficits and not confused Speech / Cognition: normal speech Motor/Sensory: no tremor and no sensory deficit Psychiatric: A+Ox3, euthymic affect Genitourinary: no CVA tenderness Results & Data Results & Data ([facility]) Vital Signs (Past 12 Hours) Vital Signs Temp Pulse Resp BP Pulse Ox 04/29/20 17:00 74 12 131/76 04/29/20 16:30 79 22 124/96 98 04/29/20 16:00 72 12 131/78 96 04/29/20 15:30 65 14 106/61 96 04/29/20 15:00 74 15 117/69 96 04/29/20 14:30 78 20 131/85 95 04/29/20 14:11 83 18 97 04/29/20 14:00 76 22 137/89 97 04/29/20 13:45 36.7 C 83 18 148/96 H 97 04/29/20 13:43 73 22 148/96 H 96 Diagnostic Findings SINGLE VIEW CHEST IMPRESSION: 1. Cardiomegaly with evidence of congestive failure and interstitial edema. 2. Layering pleural effusions with bibasilar consolidation. ECG Indication: SOB/dyspnea Rate (beats per minute): 73 Rhythm: normal sinus Findings: + LBBB and + left axis deviation Change: the following changes noted (Left bundle branch block is new from last EKG but intermittently presents on EKGs previous to this) Code Status & VTE Plan Code Status DNR/DNI VTE Prophylaxis Plan VTE Prophylaxis will be ordered: Yes PG Care Time/CCT Total # of Minutes Spent Total Time Spent with Patient: Total time spent is greater than 50% in coordination of care (as documented) at patient's floor/unit and/or counseling patient: Coding Level of Care Code 59197 OBS Care - Level 2 Diagnoses Acute on chronic systolic (congestive) heart failure I50.23 Cardiomyopathy I42.9 Hypertension I10 Hypothyroidism E03.9 Personal history of poliomyelitis Z86.12 DVT prophylaxis Z29.9
[2020-04-29] MEDS ORDERED: SODIUM CHLORIDE 0.65% NA SOLN 45 ML (OCEAN) NAE PRN (19:35)
[2020-04-29] MEDS ORDERED: CANNABIDIOL PO PRN (19:35)
[2020-04-29] MEDS ORDERED: FUROSEMIDE 40 MG/4 ML VIAL IV ONE (19:35)
[2020-04-29] MEDS ORDERED: ARTIFICIAL TEARS OP PRN (19:42)
[2020-04-29] MEDS: carvediloL 6.25 MG TAB PO SCH (20:41)
[2020-04-29] MEDS: MAGNESIUM OXIDE 400 MG TAB PO SCH (20:42)
[2020-04-29] MEDS: POTASSIUM CHLORIDE CRTAB 20 MEQ TABCR PO SCH (20:42)
[2020-04-29] MEDS: traMADol HCL 50 MG TABLET PO PRN (20:45)
[2020-04-29] MEDS ORDERED: PSYLLIUM HUSK PO SCH (21:00)
[2020-04-30] MEDS: MELATONIN 3 MG TAB PO PRN (00:30)
[2020-04-30] MEDS: LEVOTHYROXINE SODIUM 75 MCG TABLET PO SCH (06:05)
[2020-04-30] MEDS: carvediloL 6.25 MG TAB PO SCH ×2 (08:05→20:13)
[2020-04-30] MEDS: SACUBITRIL-VALSARTAN 49/51 MG TAB PO SCH ×2 (08:05→20:13)
[2020-04-30] MEDS: ASPIRIN 81 MG ECTAB PO SCH (08:05)
[2020-04-30] MEDS: MAGNESIUM OXIDE 400 MG TAB PO SCH ×2 (08:06→20:13)
[2020-04-30] MEDS: POTASSIUM CHLORIDE CRTAB 20 MEQ TABCR PO SCH ×2 (08:06→20:13)
[2020-04-30] MEDS ORDERED: NON-FORMULARY MEDICATION (Turmeric 1 TAB) PO SCH (09:00)
[2020-04-30] MEDS ORDERED: FUROSEMIDE 40 MG in SYRINGE 0 ML IV SCH (09:00)
[2020-04-30 09:55] LABS: Hematocrit (blood only) 34.1 % (37-47); Hemoglobin 11.1 g/dL (12.0-16.0); Mean Corpuscular Hemoglobin 31.2 pg (25-34); Mean Corpuscular Hgb Conc 32.6 g/dL (32-36); Mean Corpuscular Volume 95.8 fL (80-100); Mean Platelet Volume 10.5 fL (7.4-10.4); Platelet Count 259 K/uL (130-400); RDW Coefficient of Variation 15.8 % (11.5-14.5); RDW Standard Deviation 55.4 fL (36.4-46.3); Red Blood Count 3.56 M/uL (4.2-5.4); White Blood Count 3.99 K/uL (4.8-10.8)
[2020-04-30 10:25] LABS: BUN Creatinine Ratio 29.8 (10-20); Calcium 8.6 mg/dl (8.5-10.1); Creatinine Clr Calc Pharmacy 37.8 ml/min; Est GFR (African American) 83.1; Est GFR (Non-African American) 71.7; Potassium 3.5 mmol/L (3.5-5.1)
[2020-04-30] MEDS: ADVANCED PROBIOTIC 1250 MG CAPSULE PO SCH (11:14)
--- NOTE | 2020-04-30 12:35 | Electrocardiogram Report ---
Test Reason : Blood Pressure : / mmHG Vent. Rate : 073 BPM Atrial Rate : 073 BPM P-R Int : 168 ms QRS Dur : 128 ms QT Int : 430 ms P-R-T Axes : 037 -43 -21 degrees QTc Int : 473 ms Normal sinus rhythm Left atrial enlargement Left axis deviation Left bundle branch block Abnormal ECG When compared with ECG of 27-MAR-2020 13:15, Left bundle branch block is now Present Criteria for Septal infarct are no longer Present Confirmed by Toñito Cantu ([id number]) on 04/30/2020 12:34:30 PM Referred By: Confirmed By:Toñito Cantu
[2020-04-30] MEDS ORDERED: POTASSIUM CHLORIDE CRTAB 20 MEQ TABCR PO STA (14:35)
[2020-04-30] MEDS ORDERED: FUROSEMIDE 40 MG in SYRINGE 0 ML IV ONE (15:00)
[2020-04-30] MEDS ORDERED: POTASSIUM CHLORIDE CRTAB 20 MEQ TABCR PO ONE (15:00)
[2020-04-30] MEDS ORDERED: GREEN FOODS COMPLEX PO SCH (16:30)
--- NOTE | 2020-04-30 17:29 | Hospitalist Progress Note ---
Date of Service April 30, 2020 Assessment & Plan (1) Acute on chronic systolic (congestive) heart failure: LVEF 30 to 35%, moderate mitral regurgitation, moderate global hypokinesis left ventricle on echocardiogram in November 2019 Lasix 40mg IV given this morning, Give additional 40mg IV lasix now and monitor with BMP in AM. Continue potassium 20 meq BID, addition 40 meq given today. Strict I&Os - negative 580ml yesterday Daily weights (2) Cardiomyopathy: Continue carvedilol 6.25mg PO BID with hold parameters. Continue Entresto 49-59 1 tab BID (3) Hypertension: Continue Entresto, carvedilol and Lasix as above. (4) Hypothyroidism: TSH WNL in December. Continue levothyroxine 75 mcg PO daily (5) Personal history of poliomyelitis: Occurred as a child. Reason for significant scolios of back, shortened stature and reduced lower extremity muscle mass. (6) DVT prophylaxis: Given likely short stay, pharmacological prophylaxis deferred. Admission and Anticipated Discharge Date Admission Date: April 29, 2020 Anticipated date of discharge: 05/01/20 Subjective Initially patient reported improved breathing after seen in the morning and wished to be discharged. Not yet back to dry weight but much more likely for PO Lasix to work at this stage. However after receiving potassium supplementation she started feeling short of breath again. She lives with her daughter who provides 24/7 care and she does not feel she is able to cope at home at the present time. Unclear if increased anxiety from potassium supplementation vs. pulmonary edema. Review of Systems Review of Systems: All systems reviewed & are unremarkable except as noted in HPI & below Physical Exam Constitutional: well developed, well nourished and + frail appearing; no acute distress Eyes: + anicteric sclerae; normal pupil size ENMT: external ear and nose normal, oropharynx normal Respiratory: normal respiratory effort and able to speak in complete sentences; no respiratory distress, no labored breathing, does not use accessory muscles and no cough Auscultation: + breath sounds absent (Left base) and + diminished lung sounds (Left-sided to mid zone back, right base); no crackles, no rales, no rhonchi and no wheezes Cardiovascular: Rate/Rhythm: regular rate and regular rhythm Heart Sounds: no murmur Extremities: + edema (1+ to knees bilaterally, right calf > left) Gastrointestinal (Abdomen): Inspection/Auscultation: abdomen normal to inspection and normal bowel sounds; abdomen not distended Percussion/Palpation: abdomen soft; abdomen nontender, no guarding and abdomen not rigid Musculoskeletal: Spine: + scoliosis (Significant thoracic) Neurologic: moves all extremities and awake; not confused Psychiatric: A+Ox3, euthymic affect Genitourinary: no CVA tenderness Results & Data Results & [facility] ([facility]) Vital Signs (Past 12 Hours) Vital Signs Temp Pulse Pulse Resp BP Pulse Ox 04/30/20 15:26 36.8 C 72 20 121/77 96 04/30/20 11:25 36.7 C 67 20 117/70 92 04/30/20 10:04 72 04/30/20 07:24 36.8 C 65 20 123/68 96 PG Care Time/CCT Total # of Minutes Spent Total Time Spent with Patient: Total time spent is greater than 50% in coordination of care (as documented) at patient's floor/unit and/or counseling patient: Coding Level of Care Code 48187 Subseq Obs Care Lvl 2 Diagnoses Acute on chronic systolic (congestive) heart failure I50.23 Cardiomyopathy I42.9 Hypertension I10 Hypothyroidism E03.9 Personal history of poliomyelitis Z86.12 DVT prophylaxis Z29.9
[2020-04-30] MEDS ORDERED: FUROSEMIDE 20 MG in SYRINGE 0 ML IV ONE (17:45)
[2020-04-30] MEDS: traMADol HCL 50 MG TABLET PO PRN (18:40)
[2020-05-01] MEDS: LEVOTHYROXINE SODIUM 75 MCG TABLET PO SCH (05:58)
[2020-05-01 07:57] LABS: BUN Creatinine Ratio 31.7 (10-20); Calcium 8.8 mg/dl (8.5-10.1); Creatinine Clr Calc Pharmacy 40.4 ml/min; Est GFR (African American) 89.9; Est GFR (Non-African American) 77.6; Potassium 4.7 mmol/L (3.5-5.1)
[2020-05-01] MEDS: POTASSIUM CHLORIDE CRTAB 20 MEQ TABCR PO SCH (08:21)
[2020-05-01] MEDS: FUROSEMIDE 20 MG in SYRINGE 0 ML IV SCH ×2 (08:21→16:31)
[2020-05-01] MEDS: SACUBITRIL-VALSARTAN 49/51 MG TAB PO SCH ×2 (08:22→20:21)
[2020-05-01] MEDS: carvediloL 6.25 MG TAB PO SCH ×2 (08:22→20:22)
[2020-05-01] MEDS: ASPIRIN 81 MG ECTAB PO SCH (08:22)
[2020-05-01] MEDS: MAGNESIUM OXIDE 400 MG TAB PO SCH ×2 (08:22→20:21)
[2020-05-01] MEDS: traMADol HCL 50 MG TABLET PO PRN ×2 (08:28→20:21)
[2020-05-01] MEDS: ADVANCED PROBIOTIC 1250 MG CAPSULE PO SCH (11:33)
--- NOTE | 2020-05-01 23:19 | Hospitalist Progress Note ---
Date of Service May 01, 2020 Assessment & Plan (1) Acute on chronic systolic (congestive) heart failure: LVEF 30 to 35%, moderate mitral regurgitation, moderate global hypokinesis left ventricle on echocardiogram in November 2019. Remains above dry weight, has JVD, has O2 requirement -- thus, decompensated still. Cont IV lasix BID. Daily weight, BMP in am, fluid restrict 1500cc/day. Cont coreg. Cont entresto. Appreciate CHF clinic recs/assistance. (2) Cardiomyopathy: Continue carvedilol 6.25mg PO BID Continue Entresto 49-59mg 1 tab BID see above in systolic CHF (3) Hypertension: Continue Entresto, carvedilol and Lasix - controlled (4) Hypothyroidism: TSH WNL in December. Continue levothyroxine 75 mcg PO daily (5) Personal history of poliomyelitis: Occurred as a child at age 12. Muscle atrophy LLE due to such. (6) Chronic kidney disease, stage 3a: baseline CrCl 30s/40s bmp am (7) DVT prophylaxis: add heparin 5000 BID due to ongoing decompensated CHF will change observation to full admission status I certify that the inpatient services were ordered in accordance with Medicare regulations governing the order. This includes certification that hospital inpatient services are reasonable and necessary and in the case of services not specified as inpatient-only under 42 CFR 419.22(n), that they are appropriately provided as inpatient services in accordance to with the 2-midnight benchmark under 43 CFR 412.3(e) likely to need PT/ OT Admission and Anticipated Discharge Date Admission Date: May 01, 2020 Subjective patient feeling better but still requiring O2. she is not on O2 at home. dry weight is minimum 110 pounds, but she had recently been down to 106 pounds. no cough. eating ok. mild [place] when ambulating to bathroom. tele stable overnight. Review of Systems Constitutional: no fever and no malaise Respiratory: + dyspnea on exertion Cardiovascular: + edema (Improving ); no orthopnea Physical Exam Constitutional: no acute distress and no altered mental status ENMT: external ear and nose normal, oropharynx normal Respiratory: Auscultation: + diminished lung sounds; no crackles and no wheezes Cardiovascular: Rate/Rhythm: regular rate and regular rhythm Heart Sounds: normal S1, normal S2 and + murmur (Systolic, 1/6) Vessels: + JVD (Nearly to the jaw), posterior tibial pulses present and dorsalis pedis pulses present Extremities: + edema (1+ right, <1+ left; left leg is much smaller than right leg ) Gastrointestinal (Abdomen): normal bowel sounds, soft, nontender, no hepatosplenomegaly Musculoskeletal: Spine: + scoliosis Psychiatric: A+Ox3, euthymic affect Results & Data Results & Data ([facility]) Vital Signs (Past 12 Hours) Vital Signs Temp Pulse Pulse Resp BP Pulse Ox 05/01/20 19:57 36.8 C 87 20 131/80 92 05/01/20 16:05 71 05/01/20 15:22 36.9 C 68 20 114/69 98 05/01/20 11:38 36.7 C 66 20 96/60 L 97 Laboratory Results Laboratory Results - last 24 hr 05/01/20 07:10 Sodium 138 Potassium 4.7 D Chloride 105 Carbon Dioxide 30 Anion Gap 3.0 BUN 23 H Creatinine 0.74 Est Cr Clr Drug Dosing 40.4 Est GFR ( Amer) 89.9 Est GFR (Non-Af Amer) 77.6 BUN/Creatinine Ratio 31.7 H Glucose 94 Calcium 8.8 NT-Pro-B Natriuret Pep 39841 H PG Care Time/CCT Total # of Minutes Spent Total Time Spent with Patient: Total time spent is greater than 50% in coordination of care (as documented) at patient's floor/unit and/or counseling patient: Coding Level of Care Code 94981 Subseq Hosp Care Lvl 2 Diagnoses Acute on chronic systolic (congestive) heart failure I50.23 Cardiomyopathy I42.9 Hypertension I10 Hypothyroidism E03.9 Personal history of poliomyelitis Z86.12 Chronic kidney disease, stage 3a N18.31 DVT prophylaxis Z29.9
[2020-05-01] MEDS: MELATONIN 3 MG TAB PO PRN (23:23)
[2020-05-02] MEDS: LEVOTHYROXINE SODIUM 75 MCG TABLET PO SCH (06:30)
[2020-05-02] MEDS: carvediloL 6.25 MG TAB PO SCH ×2 (08:22→21:06)
[2020-05-02] MEDS: POTASSIUM CHLORIDE CRTAB 20 MEQ TABCR PO SCH (08:23)
[2020-05-02] MEDS: ASPIRIN 81 MG ECTAB PO SCH (08:23)
[2020-05-02] MEDS: FUROSEMIDE 20 MG in SYRINGE 0 ML IV SCH ×2 (08:23→17:20)
[2020-05-02] MEDS: MAGNESIUM OXIDE 400 MG TAB PO SCH ×2 (08:23→21:06)
[2020-05-02] MEDS: HEPARIN SOD 5,000 UNIT/0.5 ML VIAL SQ SCH ×2 (08:24→21:05)
[2020-05-02] MEDS: traMADol HCL 50 MG TABLET PO PRN ×2 (08:33→21:05)
[2020-05-02] MEDS: SACUBITRIL-VALSARTAN 49/51 MG TAB PO SCH ×2 (09:06→21:07)
[2020-05-02 09:08] LABS: BUN Creatinine Ratio 37.6 (10-20); Calcium 9.2 mg/dl (8.5-10.1); Creatinine Clr Calc Pharmacy 43.6 ml/min; Est GFR (African American) 96.6; Est GFR (Non-African American) 83.4; Magnesium 2.6 mg/dl (1.8-2.4); Potassium 4.2 mmol/L (3.5-5.1)
[2020-05-02] MEDS: ADVANCED PROBIOTIC 1250 MG CAPSULE PO SCH (11:43)
[2020-05-02] MEDS ORDERED: FUROSEMIDE 20 MG in SYRINGE 0 ML IV ONE (18:30)
--- NOTE | 2020-05-02 22:43 | Hospitalist Progress Note ---
Date of Service May 02, 2020 Assessment & Plan (1) Acute on chronic systolic (congestive) heart failure: LVEF 30 to 35%, moderate mitral regurgitation, moderate global hypokinesis left ventricle on echocardiogram in November 2019. Still decompensated. Try higher dose of lasix - give 40mg at dinner-time tonight. BMP am. Daily weights on standing scale. Fluid restrict 1500cc/day. Cont coreg. Cont entresto. Appreciate CHF clinic recs/assistance. If patient gets to dry weight and is still have dyspnea, O2 requirement, etc-- then CTA chest to r/o PE given recent surgery. (2) Cardiomyopathy: Continue carvedilol 6.25mg PO BID Continue Entresto 49-59mg 1 tab BID see above in systolic CHF (3) Hypertension: Continue Entresto, carvedilol and Lasix - controlled (4) Hypothyroidism: TSH WNL in December. Continue levothyroxine 75 mcg PO daily (5) Personal history of poliomyelitis: Occurred as a child at age 12. Muscle atrophy LLE due to such. (6) Chronic kidney disease, stage 3a: baseline CrCl 30s/40s bmp am Cr stable w/ diuresis (7) DVT prophylaxis: heparin 5000 BID progressing nicely cont PT/OT Admission and Anticipated Discharge Date Admission Date: May 01, 2020 Subjective tele normal overnight. still quite dyspneic especially with walking to bathroom. no cough. excellent appetite. orthopneic in the bed. legs with improved edema. no new complaints. Review of Systems Constitutional: no fever, no fatigue and no anorexia Respiratory: no cough and no sputum production Cardiovascular: no chest pain Physical Exam Constitutional: no acute distress and no altered mental status ENMT: external ear and nose normal, oropharynx normal Respiratory: Auscultation: + diminished lung sounds; no crackles and no wheezes Cardiovascular: Rate/Rhythm: regular rate and regular rhythm Heart Sounds: normal S1, normal S2 and + murmur (Systolic, 1/6) Vessels: + JVD (no change ) , posterior tibial pulses present and dorsalis pedis pulses present Extremities: no edema Gastrointestinal (Abdomen): normal bowel sounds, soft, nontender, no hepatosplenomegaly Musculoskeletal: Spine: + scoliosis Psychiatric: A+Ox3, euthymic affect Results & Data Results & Data ([facility]) Vital Signs (Past 12 Hours) Vital Signs Temp Pulse Pulse Resp BP Pulse Ox 05/02/20 22:39 36.5 C 66 20 112/65 99 05/02/20 19:42 36.7 C 65 20 101/60 99 05/02/20 16:00 36.4 C L 62 18 115/71 100 05/02/20 15:13 62 05/02/20 11:19 36.4 C L 62 16 101/63 98 Laboratory Results Laboratory Results - last 24 hr 05/02/20 07:50 Sodium 136 Potassium 4.2 Chloride 101 Carbon Dioxide 29 Anion Gap 6.0 BUN 26 H Creatinine 0.69 Est Cr Clr Drug Dosing 43.6 Est GFR ( Amer) 96.6 Est GFR (Non-Af Amer) 83.4 BUN/Creatinine Ratio 37.6 H Glucose 95 Calcium 9.2 Magnesium 2.6 H PG Care Time/CCT Total # of Minutes Spent Total Time Spent with Patient: Total time spent is greater than 50% in coordination of care (as documented) at patient's floor/unit and/or counseling patient: Coding Level of Care Code 05605 Subseq Hosp Care Lvl 2 Diagnoses Acute on chronic systolic (congestive) heart failure I50.23 Cardiomyopathy I42.9 Hypertension I10 Hypothyroidism E03.9 Personal history of poliomyelitis Z86.12 Chronic kidney disease, stage 3a N18.31 DVT prophylaxis Z29.9
[2020-05-03] MEDS: LEVOTHYROXINE SODIUM 75 MCG TABLET PO SCH (07:07)
[2020-05-03] MEDS: carvediloL 6.25 MG TAB PO SCH ×2 (08:18→21:24)
[2020-05-03] MEDS: ASPIRIN 81 MG ECTAB PO SCH (08:19)
[2020-05-03] MEDS: POTASSIUM CHLORIDE CRTAB 20 MEQ TABCR PO SCH (08:19)
[2020-05-03] MEDS: MAGNESIUM OXIDE 400 MG TAB PO SCH ×2 (08:19→21:24)
[2020-05-03] MEDS: SACUBITRIL-VALSARTAN 49/51 MG TAB PO SCH ×2 (08:19→21:24)
[2020-05-03] MEDS: HEPARIN SOD 5,000 UNIT/0.5 ML VIAL SQ SCH ×2 (08:19→21:23)
[2020-05-03] MEDS: FUROSEMIDE 20 MG in SYRINGE 0 ML IV SCH ×2 (08:20→17:13)
[2020-05-03] MEDS: traMADol HCL 50 MG TABLET PO PRN ×2 (08:26→23:50)
[2020-05-03 08:30] LABS: BUN Creatinine Ratio 30.5 (10-20); Calcium 8.6 mg/dl (8.5-10.1); Est GFR (Non-African American) 80.2; Potassium 3.8 mmol/L (3.5-5.1)
[2020-05-03] MEDS ORDERED: FUROSEMIDE 20 MG in SYRINGE 0 ML IV ONE (09:45)
[2020-05-03] MEDS: ADVANCED PROBIOTIC 1250 MG CAPSULE PO SCH (11:58)
--- NOTE | 2020-05-03 14:34 | Hospitalist Progress Note ---
Date of Service May 03, 2020 Assessment & Plan (1) Acute on chronic systolic (congestive) heart failure: LVEF 30 to 35%, moderate mitral regurgitation, moderate global hypokinesis left ventricle on echocardiogram in November 2019. MARKED Improvement. Suspect approaching euvolemia. Cont IV lasix. Daily weights on standing scale. Fluid restrict 1500cc/day. Cont coreg. Cont entresto. Appreciate CHF clinic recs/assistance. BMP am. (2) Cardiomyopathy: Continue carvedilol 6.25mg PO BID Continue Entresto 49-59mg 1 tab BID see above in systolic CHF (3) Hypertension: Continue Entresto, carvedilol and Lasix - controlled (4) Hypothyroidism: TSH WNL in December. Continue levothyroxine 75 mcg PO daily (5) Personal history of poliomyelitis: Occurred as a child at age 12. Muscle atrophy LLE due to such. (6) Chronic kidney disease, stage 3a: baseline CrCl 30s/40s bmp am Cr stable w/ diuresis (7) DVT prophylaxis: heparin 5000 BID progressing nicely suspect we can get her to rehab tomorrow check COVID-19 pre-screen for rehab cont PT/OT Admission and Anticipated Discharge Date Admission Date: May 01, 2020 Subjective O2 WEANED OFF. feels much better. no dyspnea with working with PT today. no dyspnea at rest; no PND. no cough. eating well. wants to go to rehab. Review of Systems Constitutional: no fever Cardiovascular: no chest pain Gastrointestinal: no abdominal pain Physical Exam Constitutional: no acute distress and no altered mental status ENMT: external ear and nose normal, oropharynx normal Respiratory: Auscultation: + diminished lung sounds; no crackles and no wheezes Cardiovascular: Rate/Rhythm: regular rate and regular rhythm Heart Sounds: normal S1, normal S2 and + murmur (Systolic, 1/6) Vessels: posterior tibial pulses present and dorsalis pedis pulses present; no JVD (resolved today ) Extremities: no edema right leg chronically larger than left leg due to childhood polio Gastrointestinal (Abdomen): normal bowel sounds, soft, nontender, no hepatosplenomegaly Musculoskeletal: Spine: + scoliosis Psychiatric: A+Ox3, euthymic affect Results & Data Results & Data ([facility]) Vital Signs (Past 12 Hours) Vital Signs Temp Pulse Pulse Resp BP Pulse Ox 05/03/20 07:36 63 05/03/20 07:04 36.6 C 66 16 108/63 100 05/03/20 05:14 63 20 103/70 94 Laboratory Results Laboratory Results - last 24 hr 05/03/20 07:29 Sodium 135 L Potassium 3.8 Chloride 99 Carbon Dioxide 34 H Anion Gap 2.0 L BUN 22 H Creatinine 0.72 Est Cr Clr Drug Dosing 41.0 Est GFR ( Amer) 93.0 Est GFR (Non-Af Amer) 80.2 BUN/Creatinine Ratio 30.5 H Glucose 88 Calcium 8.6 PG Care Time/CCT Total # of Minutes Spent Total Time Spent with Patient: Total time spent is greater than 50% in coordination of care (as documented) at patient's floor/unit and/or counseling patient: Coding Level of Care Code 71723 Subseq Hosp Care Lvl 2 Diagnoses Acute on chronic systolic (congestive) heart failure I50.23 Cardiomyopathy I42.9 Hypertension I10 Hypothyroidism E03.9 Personal history of poliomyelitis Z86.12 Chronic kidney disease, stage 3a N18.31 DVT prophylaxis Z29.9
[2020-05-03] MEDS: MELATONIN 3 MG TAB PO PRN (21:27)
[2020-05-04] MEDS: LEVOTHYROXINE SODIUM 75 MCG TABLET PO SCH (06:33)
[2020-05-04 08:28] LABS: BUN Creatinine Ratio 36.8 (10-20); Calcium 8.8 mg/dl (8.5-10.1); Creatinine Clr Calc Pharmacy 49.5 ml/min; Est GFR (African American) 101.2; Est GFR (Non-African American) 87.3
[2020-05-04] MEDS: ASPIRIN 81 MG ECTAB PO SCH (08:32)
[2020-05-04] MEDS: carvediloL 6.25 MG TAB PO SCH ×2 (08:33→20:19)
[2020-05-04] MEDS: SACUBITRIL-VALSARTAN 49/51 MG TAB PO SCH ×2 (08:33→20:20)
[2020-05-04] MEDS: POTASSIUM CHLORIDE CRTAB 20 MEQ TABCR PO SCH (08:33)
[2020-05-04] MEDS: HEPARIN SOD 5,000 UNIT/0.5 ML VIAL SQ SCH ×2 (08:34→20:20)
[2020-05-04] MEDS: MAGNESIUM OXIDE 400 MG TAB PO SCH ×2 (08:34→20:20)
[2020-05-04] MEDS: FUROSEMIDE 20 MG in SYRINGE 0 ML IV SCH ×2 (08:34→17:11)
[2020-05-04] MEDS: ADVANCED PROBIOTIC 1250 MG CAPSULE PO SCH (12:11)
--- NOTE | 2020-05-04 14:44 | XRay Report ---
XR chest 2V PA/lateral HISTORY: 79 years-old Female CHF, interval change acute shortness of breath with congestive heart fa ilure. COMPARISON: Chest radiograph 04/29/2020 TECHNIQUE: AP and lateral views of the chest FINDINGS: Moderate enlargement of the cardiac silhouette. Small to moderate pleural effusions with bibasilar co nsolidation. Pulmonary vascular congestion with interstitial coarsening, slightly improved. No pneumo thorax. Medial lung apices are again partially obscured by the patient's chin. Reverse right shoulder total joint arthroplasty. Severe left shoulder osteoarthritis. Sigmoidal thoracolumbar scoliosis. IMPRESSION: 1. Cardiomegaly with slightly improved pulmonary edema. 2. Small to moderate pleural effusions with persistent bibasilar consolidation. ACT 112: Negative or not required by law. The above report was generated using voice recognition software. It may contain grammatical, syntax o r spelling errors. Electronically signed by: Cole Friend M.D. 05/04/2020 2:43 PM
[2020-05-04] MEDS: traMADol HCL 50 MG TABLET PO PRN (20:27)
--- NOTE | 2020-05-04 23:36 | Hospitalist Progress Note ---
Date of Service May 04, 2020 Assessment & Plan (1) Acute on chronic systolic (congestive) heart failure: LVEF 30 to 35%, moderate mitral regurgitation, moderate global hypokinesis left ventricle on echocardiogram in November 2019. MARKED Improvement. O2 sats normal in room air. Suspect approaching euvolemia. Cont IV lasix today - suspect we can revert back to PO lasix tomorrow (40mg daily). Daily weights on standing scale. Fluid restrict 1500cc/day. Cont coreg. Cont entresto. Appreciate CHF clinic recs/assistance. WIll need f/u with CHF clinic within a week of discharge. BMP am. (2) Cardiomyopathy: Continue carvedilol 6.25mg PO BID Continue Entresto 49-59mg 1 tab BID see above in systolic CHF (3) Hypertension: Continue Entresto, carvedilol and Lasix - controlled (4) Hypothyroidism: TSH WNL in December. Continue levothyroxine 75 mcg PO daily (5) Personal history of poliomyelitis: Occurred as a child at age 12. Muscle atrophy LLE due to such. (6) Chronic kidney disease, stage 3a: baseline CrCl 30s/40s CrCL 40s today bmp am Cr stable w/ diuresis (7) DVT prophylaxis: heparin 5000 BID progressing nicely suspect we can get her to rehab tomorrow at [facility] - has been accepted, and insurance auth has gone through [email or web address] testing negative cont PT/OT Admission and Anticipated Discharge Date Admission Date: May 01, 2020 Subjective patient was on 1 L NC O2 upon my arrival while laying in bed. I took O2 off. 10 minutes later the O2 sats were 95-97% in room air. she voiced no complaints. no dyspnea with exertion. no cough. no orthopnea. eating well. telemetry with NSR. Review of Systems Constitutional: no fever Respiratory: no cough, no dyspnea, no dyspnea on exertion, no sputum production and no wheezing Cardiovascular: no chest pain Gastrointestinal: + constipation; no abdominal pain, no nausea and no vomiting Physical Exam Constitutional: no acute distress and no altered mental status ENMT: external ear and nose normal, oropharynx normal Respiratory: Auscultation: + diminished lung sounds; no crackles and no wheezes Cardiovascular: Rate/Rhythm: regular rate and regular rhythm Heart Sounds: normal S1, normal S2 and + murmur (Systolic, 1/6) Vessels: posterior tibial pulses present and dorsalis pedis pulses present; no JVD Extremities: no christianne ma right leg is larger than left leg (L leg is smaller due to childhood polio) Gastrointestinal (Abdomen): normal bowel sounds, soft, nontender, no hepatosplenomegaly Musculoskeletal: Spine: + scoliosis Psychiatric: A+Ox3, euthymic affect Results & Data Results & Data ([facility]) Vital Signs (Past 12 Hours) Vital Signs Temp Pulse Pulse Resp BP Pulse Ox 05/04/20 20:21 36.7 C 73 16 104/65 95 05/04/20 16:00 63 05/04/20 15:31 37 C 67 20 102/64 97 05/04/20 11:58 36.6 C 65 16 90/53 L 98 Laboratory Results Laboratory Results - last 24 hr 05/04/20 07:14 Sodium 134 L Potassium 4.0 Chloride 99 Carbon Dioxide 31 Anion Gap 4.0 BUN 22 H Creatinine 0.60 Est Cr Clr Drug Dosing 49.5 Est GFR ( Amer) 101.2 Est GFR (Non-Af Amer) 87.3 BUN/Creatinine Ratio 36.8 H Glucose 93 Calcium 8.8 PG Care Time/CCT Total # of Minutes Spent Total Time Spent with Patient: Total time spent is greater than 50% in coordination of care (as documented) at patient's floor/unit and/or counseling patient: Coding Level of Care Code 65882 Subseq Hosp Care Lvl 2 Diagnoses Acute on chronic systolic (congestive) heart failure I50.23 Cardiomyopathy I42.9 Hypertension I10 Hypothyroidism E03.9 Personal history of poliomyelitis Z86.12 Chronic kidney disease, stage 3a N18.31 DVT prophylaxis Z29.9
[2020-05-05] MEDS: MELATONIN 3 MG TAB PO PRN (01:26)
[2020-05-05] MEDS: LEVOTHYROXINE SODIUM 75 MCG TABLET PO SCH (06:33)
[2020-05-05 07:53] LABS: BUN Creatinine Ratio 31.6 (10-20); Calcium 8.5 mg/dl (8.5-10.1); Creatinine Clr Calc Pharmacy 40.8 ml/min; Est GFR (African American) 91.4; Est GFR (Non-African American) 78.9; Potassium 3.7 mmol/L (3.5-5.1)
[2020-05-05] MEDS: MAGNESIUM OXIDE 400 MG TAB PO SCH (08:38)
[2020-05-05] MEDS: ASPIRIN 81 MG ECTAB PO SCH (08:38)
[2020-05-05] MEDS: POTASSIUM CHLORIDE CRTAB 20 MEQ TABCR PO SCH (08:38)
[2020-05-05] MEDS: carvediloL 6.25 MG TAB PO SCH (08:39)
[2020-05-05] MEDS: HEPARIN SOD 5,000 UNIT/0.5 ML VIAL SQ SCH (08:39)
[2020-05-05] MEDS: FUROSEMIDE 20 MG in SYRINGE 0 ML IV SCH (08:39)
[2020-05-05] MEDS: SACUBITRIL-VALSARTAN 49/51 MG TAB PO SCH (08:39)
[2020-05-05] MEDS: traMADol HCL 50 MG TABLET PO PRN (08:57)
[2020-05-05] MEDS: ADVANCED PROBIOTIC 1250 MG CAPSULE PO SCH (11:40)
--- NOTE | 2020-05-05 16:23 | Discharge Summary ---
Date of Service May 05, 2020 Admission HPI Per Admitting Provider Elin Qureshi is a 79 year old female with chronic systolic heart failure who presents to the ER with shortness of breath. This has been intermittently getting better and worse since her right shoulder operation. Associated increased leg swelling, weight gain and orthopnea. No chest pain, presyncope or syncope. No fever, chills, known COVID-19 exposure. 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 Subsequently discharged to [facility] for rehabilitation and she reports occasionally getting more Lasix there. She was discharged home from [facility] 1 week ago. She follows with Izzy Mason in the heart failure clinic and she reports her Lasix was doubled last week from 40mg PO daily to BID. Despite this her weight has continued to increase therefore decided to come to the ER. Principal Diagnosis Acute CHF exacerbation Discharge Exam Constitutional WD/WN, vitals as above Eyes EOM intact bilaterally; no conjunctival abnormality ENMT external ear and nose normal, oropharynx normal Neck trachea midline, no thyromegaly normal visual inspection Respiratory normal respiratory effort, lungs clear to auscultation no respiratory distress Cardiovascular RRR, no murmur, no edema Gastrointestinal (Abdomen) Inspection/Auscultation: abdomen normal to inspection; abdomen not distended Musculoskeletal no cyanosis or clubbing, extremities motor strength 5/5 Skin no rashes, warm and dry Neurologic moves all extremities and awake Psychiatric Orientation: alert, oriented to person and cooperative Discharge Data Allergies Allergy/AdvReac Type Severity Reaction Status Date / Time acetaminophen Allergy Unknown DIZZINESS/D Verified 04/29/20 14:24 IAPHORETIC amlodipine Allergy Unknown SWOLLEN Verified 04/29/20 14:24 LEGS clonidine Allergy Unknown "VARIETY Verified 04/29/20 14:24 OF COMPLICATIONS" latex Allergy Unknown RASH Verified 04/29/20 14:24 losartan Allergy Unknown "MULTIPLE Verified 04/29/20 14:24 PROBLEMS" spironolactone Allergy Unknown "MULTIPE Verified 04/29/20 14:24 PROBLEMS", COULD NOT TOLERATE terazosin Allergy Unknown SWOLLEN Verified 04/29/20 14:24 LEGS hydrochlorothiazide AdvReac Unknown "COULD NOT Verified 04/29/20 14:24 TOLERATE" lisinopril AdvReac Unknown Per PT Verified 04/29/20 14:24 raised BP metoprolol AdvReac Unknown COULD NOT Verified 04/29/20 14:24 TOLERATE Sulfa (Sulfonamide AdvReac Unknown "COULD NOT Verified 04/29/20 14:24 Antibiotics) TOLERATE" Consultations 04/29/20 16:01 ED Decision to Admit Stat 04/30/20 11:28 [facility] CHF Program Referral Routine Hospital Course (1) Acute on chronic systolic (congestive) heart failure: LVEF 30 to 35%, moderate mitral regurgitation, moderate global hypokinesis left ventricle on echocardiogram in November 2019. MARKED Improvement. O2 sats normal in room air. Suspect approaching euvolemia. Daily weights on standing scale. Fluid restrict 1500cc/day. Cont coreg. Cont entresto. Appreciate CHF clinic recs/assistance. Will need f/u with CHF clinic within a week of discharge. - Discharged on Lasix 40 mg PO daily. (2) Cardiomyopathy: Continue carvedilol 6.25mg PO BID Continue Entresto 49-59mg 1 tab BID see above in systolic CHF (3) Hypertension: Continue Entresto, carvedilol and Lasix - controlled (4) Hypothyroidism: TSH WNL in December. Continue levothyroxine 75 mcg PO daily (5) Personal history of poliomyelitis: Occurred as a child at age 12. Muscle atrophy LLE due to such. (6) Chronic kidney disease, stage 3a: baseline CrCl 30s/40s CrCL 40s today bmp am Cr stable w/ diuresis (7) DVT prophylaxis: heparin 5000 BID progressing nicely suspect we can get her to rehab tomorrow at [facility] - has been accepted, and insurance auth has gone through COVID-19 testing negative cont PT/OT Total Time Total Time Spent Total Time Spent (In Minutes): 35 Discharge Plan Discharge Items Patient Disposition: Transfer [facility] Fac Reason For Visit: ACUTE CHF EXACERBATION Discharge Diagnosis: Acute CHF exacerbation Activity: Resume your previous activity Non-emergency contact: Sleeve Turner Call non-emergency contact if: you have any medication questions and your symptoms worsen Follow-up/Referrals: Alexa Boggs CRNP [Primary Care Provider] - Amy Mason PA-C [Family Provider] - 05/08/20 10:30 am (Congestive Heart Failure Program Appointment Information Early follow up is essential to managing your heart failure. An appointment has been scheduled for you with the [facility] Heart Failure Program within 7 days of discharge. Anticipate this visit to be 30-60 minutes long. Please expect a licensed practical nurse instructor phone call from one of our nurses approximately 48 hours from discharge. They will also be placing an order for lab work to be completed 1-2 days prior to your heart failure follow up appointment. Please be sure to have this done so we can go over the results when you come in. Office Location The cardiology office building is located in front of the hospital at [address]. Bring the following with you to your follow-up doctor appointments: Please bring your daily weight log any discharge paperwork all of your medication bottles with you to this visit. ) Diet: Heart Healthy and Low Sodium (2gm) Addtl Attending Provider Instructions: You were seen at [facility] from April 29-2019 due to increasing shortness of breath and leg swelling. He was diagnosed with acute systolic congestive heart failure and treated with intravenous Lasix. This appeared to improve your symptoms significantly by the following morning. Recommend discharge at this time with close follow-up in the heart failure clinic. Please call tomorrow to arrange an appointment in the next week. Addtl Integrity Analyst Provider Instructions: Call your Primary Care doctor if any of the following symptoms or problems start or get worse: * Shortness of breath or difficulty breathing * Wake up at night short of breath * Chest pain * Cough * Swelling of your hands, feet, or legs * More fatigued or tired with your normal activity * Palpitations - sudden fast heart beats WEIGHT * Weigh yourself every morning after using the bathroom. * Use the same scale. * Wear the same amount of clothing. * Write your weight down on a chart. * Call your Primary Care doctor if you gain more than 2-3 pounds in 1-2 days. MEDICATIONS * Use this discharge instruction sheet for medication instructions. * Take your medications at the time your doctor ordered. * Do not skip a dose of your medicines. * If you miss a dose of medicine, take it as soon as possible, but DO NOT DOUBLE A DOSE. * Read your medicine information when you get home. * Know all of the side effects of your medicine. If in doubt, ask your pharmacist * Call your Primary Care doctor's office if you have any side effects. * Be sure all of your doctors know what medicine and herbs you take (including cold, flu, and herbal medicine). Take the following with you to your follow-up doctor appointments: * Weight Chart * Medication List * List of questions Do not drink excessive alcohol, beer or wine. Pending Studies at Discharge: No Stand-Alone Forms: My [facility] Skilled Items Patient informed of condition?: No DNR: Yes Discharge Level of Care: Skilled Communicable Disease: No Discharge Prognosis: Stable Lines: None Urinary Catheter: No Medications and DC Order Prescriptions: New melatonin 3 mg Tablet 3 mg PO HS PRN (Reason: sleep) Qty: 1 RF: 0 furosemide [Lasix] 40 mg tablet 40 mg PO DAILY Qty: 30 RF: 0 Continued potassium chloride [Klor-Con M10] 10 mEq tablet,ER particles/crystals 10 meq PO BID Qty: 60 RF: 4 magnesium oxide 400 mg (241.3 mg magnesium) tablet 400 mg PO BID Qty: 60 RF: 4 aspirin 81 mg tablet,delayed release (DR/EC) 81 mg PO QAM Qty: 90 RF: 3 levothyroxine [Synthroid] 75 mcg tablet 75 mcg PO QAM Qty: 30 RF: 5 Entresto 49-51 mg tablet 1 tab PO BID Qty: 60 RF: 2 Lactobacillus acidophilus 1 dose PO QDL RF: 0 amoxicillin 500 mg tablet 2,000 mg PO ONCE PRN (Reason: prior to dental apts.) Qty: 4 RF: 1 carvedilol [Coreg] 6.25 mg tablet 6.25 mg PO BID RF: 0 sodium chloride [[place] Saline] 0.65 % Aerosol,[place] 1 spray INTRANASAL BID PRN (Reason: Nasal Congestion) RF: 0 tramadol 50 mg tablet 50 mg PO Q6H PRN (Reason: pain) Qty: 30 RF: 0 cannabidiol 100 mg/mL Solution 25 mg PO DAILY PRN (Reason: Pain) RF: 0 Refresh Optive Advanced 0.5-1-0.5 % Drops 1 drp OPHTHALMIC (EYE) UD PRN (Reason: Dry Eyes) RF: 0 Discontinued (DME) Hospital Bed Misc See Rx Instructions .ROUTE .MEDSUPPLY Qty: 1 RF: 0 psyllium husk 1 dose PO BID RF: 0 turmeric 1 tab PO QAM RF: 0 (DME) [facility] See Dose Instructions .ROUTE .MEDSUPPLY Qty: 1 RF: 0 Green [employer] Complex 1 dose PO QDD RF: 0 Nerve Pain Away 1 dose topical DAILY PRN (Reason: Pain) RF: 0 furosemide [Lasix] 40 mg tablet 40 mg PO QPM RF: 0 [place] [facility] Homopathic 1 tab sublingual DAILY PRN (Reason: Allergy Symptoms) RF: 0 Discharge Orders: Discharge Order (Routine); Ordered 05/05/20 Ordered By: Ad Aquino Admission Data Admit Date/Time: 05/01/20 15:43 Attending Provider: Ad Aquino Admit Provider: Nelson Flores Primary Care Provider: Alexa Boggs Other Providers: [facility] ; Amy Mason ; Ad Aquino Other Interventions: Discharge Summary Assessment (RN) Last Done: 05/05/20 14:50 Coding Level of Care Code D/C Day Management >30 mins Diagnoses Acute on chronic systolic (congestive) heart failure I50.23 Cardiomyopathy I42.9 Hypertension I10 Hypothyroidism E03.9 Personal history of poliomyelitis Z86.12 Chronic kidney disease, stage 3a N18.31 DVT prophylaxis Z29.9
== END 2020-05-05 16:06 ==
LOC: ED 13:34 → 2W 13:34 → SUATTDRO 17:22 → 2W 18:20 → SUATTDRO 05-01 15:43

== ENCOUNTER 2025-03-07 11:04 | Inpatient (IN) ==
--- NOTE | 2025-03-07 11:17 | Emergency Department Note ---
Impression & Plan Acute non-ST elevation myocardial infarction (NSTEMI), Weakness, Rhabdomyolysis, Pressure sore, Acidosis, lactic, DONALD (acute kidney injury) ED Provider Note NAME: BRANDEE MELVIN AGE: 84 SEX: F : 1940 ARRIVES VIA: Ambulance INFORMANT: Patient, EMS ED PROVIDER(S): Rich Richardson DO CHIEF COMPLAINT: Pain HPI: The patient is an 84-year-old female who presented to the emergency department for an evaluation after a fall. The patient states that she was in her tub. She did not fall completely but slid to the bottom of the tub. She states she was unable to get up. This occurred at 4 PM yesterday. She has been in the tub ever since. The patient denies having any chest pain or difficulty breathing. She does complain of lower extremity numbness because she states she was uncomfortable in the tub. She was noted to have pressure injuries by the prehospital personnel. The patient states that she has not been able to take any of her morning medications. ROS: See above HPI for pertinent positives & negatives. A total of 10 systems reviewed and were otherwise negative. PAST MEDICAL HISTORY: See Below PAST SURGICAL HISTORY: See Below FAMILY HISTORY: See Below SOCIAL HISTORY: See Below HOME MEDICATIONS: See Below ALLERGIES: See Below VITALS: See Below PHYSICAL EXAMINATION: GENERAL: Patient is awake alert in no acute distress patient is resting comfortably and showing no signs of anxiety EYES: The conjunctivae are clear. The pupils are round and reactive. EARS, NOSE, MOUTH AND THROAT: The nose is without any evidence of any deformity. NECK: The neck is nontender and supple. RESPIRATORY: Scattered rhonchi are noted throughout. There is no specific tachypnea or conversational dyspnea. CARDIOVASCULAR: Regular rate and rhythm noted there no murmurs rubs or gallops normal S1 normal S2. GASTROINTESTINAL: The abdomen is soft. Abdomen is nontender. BACK: No midline tenderness or or step-off noted range of motion in flexion extension as well as rotation no signs of muscle spasm noted MUSCULOSKELETAL/EXTREMITIES: There is no evidence of gross deformity full range of motion is noted in the hips and shoulders. SKIN: Skin is warm and dry. Pedal edema was noted bilaterally. NEUROLOGIC: Patient is awake alert and oriented x3. Strength is symmetric but diminished. MEDICAL DECISION MAKING: The patient is an 84-year-old female who presented to the emergency department for an evaluation of being found in her tub. The patient was not able to get out of the tub. She slid in the tub but did not specifically fall or injure herself. She had areas of pressure ulceration noted. She also had lower extremity swelling and has some weakness in the numbness at baseline. The patient was treated with IV fluids in the emergency department. She was also covered with IV antibiotics. I discussed the patient's laboratory and radiographic studies with her. She was found to have elevation in her troponin. She had no chest pain and EKG showed no specific change from previous. I discussed the patient's condition with the on-call [facility] hospitalist. They have agreed to evaluate the patient in the emergency department for further management and disposition. Her white blood cell count was elevated. Biomarkers were also elevated so the patient was covered with antibiotic. Triage Nursing notes reviewed. Prior medical records reviewed Vital Signs: reviewed and remarkable for no significant abnormalities Differential diagnosis: Infection, dehydration, metabolic abnormality, hypo/hyperglycemia, electrolyte disturbance, anemia, hypoxia, cardiac sources, intracerebral event, toxicologic, neurologic, as well as other pathologies. ER treatment provided: See below Diagnostics interpreted by me: ECG: EKG was obtained in the emergency department. My interpretation is sinus rhythm at 91 bpm. Left bundle branch block pattern was noted. PVCs were noted. This was compared to a tracing from April 29, 2020. No changes were noted. Cardiac Monitoring: An order was placed for continuous cardiac monitoring. The monitor shows a rate of 94 bpm with sinus rhythm. Laboratory studies: As stated above and show below. Imaging studies: See below. Radiographic imaging was reviewed by myself Consultation(s): I discussed this case with Dr. Hill who is on-call for the [facility]ist group. ED COURSE: Procedures: none Critical Care: I have personally spent greater than 45 minutes of critical care time in the direct management of this patient. This includes bedside care, interpretation of diagnostic studies, and testing, discussion with consultants, patient, and family members, and other required patient management activities. This 45 minutes is in excess of all separately billable procedures. Past Med/Surg History Problem List (Updated 03/07/25 @ 15:21 by Rich Richardson DO) DONALD (acute kidney injury) (Acute) Acidosis, lactic (Acute) Pressure sore (Acute) Rhabdomyolysis (Acute) Weakness (Acute) Acute non-ST elevation myocardial infarction (NSTEMI) (Acute) Rhabdomyolysis NSTEMI (non-ST elevated myocardial infarction) Statin declined Back pain of thoracolumbar region Unsteady gait when walking Aortic stenosis Chronic pain Chronic kidney disease, stage 3a Bilateral edema of lower extremity (Acute) Pituitary abnormality Chronic systolic CHF (congestive heart failure) EF 30-35%. Now on Entresto, following with [facility] [place] [facility]. Medications still being titrated, will have f/u echo once medications are fully optimized. Hypertension (Chronic) Hypothyroidism (Chronic) Hypokalemia Scoliosis (Acute) Hyperlipidemia (Acute) refuses treatment, using supplements Encounter for long-term (current) use of high-risk medication (Acute) Complete left bundle branch block (Acute) Hypokalemia (Acute) Hypomagnesemia (Acute) Left ventricular dysfunction Underweight Pituitary adenoma Generalized weakness (Acute) Cardiomyopathy Mitral regurgitation Osteoarthritis Hyponatremia chronic, baseline sodium low 130's- PCP aware/feel related to chlorthalidone and supplements but d/t multiple allergies will continue with chlorthalidone and monitor hyponatremia Medical History Hypothyroidism Cardiac murmur Moderate MR on echo 11/11/19 CHF (congestive heart failure) CHF hospitalization 10/2019 [place] -- follows w/ Dr. Espinoza Personal history of poliomyelitis age 12 Urinary incontinence Hypertension Surgical History Status post reverse arthroplasty of right shoulder (~03/2020) S/P hip replacement right History of cataract surgery left Hx of eye surgery lens replacement on 09/22/19 Family History Father Myocardial infarction Other No family history of adverse response to anesthesia Denies family history of Ovarian cancer Prostate cancer Breast cancer Colorectal cancer Social History Smoking Status: Never smoker Second Hand Exposure: Yes (back when she worked at the [employer]. ); Do You Dip or Chew Tobacco: No; Hx Alcohol Use: No Hx Substance Use: No Preferred Language: Italian Communication Ability: Effective Visual Impairment: Limited Hearing Ability: Normal Nursing Professor Required: No Beliefs That Will Affect Care: None marital status: Single Current Living Situation: Family current occupational status: retired How many Children do You have: 0 Feels Safe at Home: Yes Childhood Exposure to Second-Hand Smoke: Yes Diet: regular caffeine: Yes Dental Care, Regularly: Yes Physical Activity Frequency: Does not Exercise Seatbelt Use: always Sunscreen Use: No Assistive Devices: Brace/Splint/Immobilizer, Glasses, Oxygen - at Night and Walker Allergies Allergies Allergy/AdvReac Type Severity Reaction Status Date / Time levothyroxine Allergy Severe Generic Unverified 03/07/25 13:37 caused nose bleed, name brand works perfectly acetaminophen Allergy Unknown DIZZINESS/D Verified 03/07/25 13:37 IAPHORETIC amlodipine Allergy Unknown SWOLLEN Verified 03/07/25 13:37 LEGS clonidine Allergy Unknown "VARIETY Verified 03/07/25 13:37 OF COMPLICATIONS" latex Allergy Unknown RASH Verified 03/07/25 13:37 losartan Allergy Unknown "MULTIPLE Verified 03/07/25 13:37 PROBLEMS" spironolactone Allergy Unknown "MULTIPE Verified 03/07/25 13:37 PROBLEMS", COULD NOT TOLERATE terazosin Allergy Unknown SWOLLEN Verified 03/07/25 13:37 LEGS onion AdvReac Severe Heart Burn Unverified 03/07/25 13:37 hydrochlorothiazide AdvReac Unknown "COULD NOT Verified 03/07/25 13:37 TOLERATE" lisinopril AdvReac Unknown Per PT Verified 03/07/25 13:37 raised BP metoprolol AdvReac Unknown COULD NOT Verified 03/07/25 13:37 TOLERATE Sulfa (Sulfonamide AdvReac Unknown "COULD NOT Verified 03/07/25 13:37 Antibiotics) TOLERATE" Home Meds Home Medications Medication Instructions Recorded Confirmed cannabidiol 100 mg/mL oral solution 25 mg PO DAILY PRN Pain 09/12/19 03/07/25 [id number]-[id number] 1 drp ophthalmic (eye) DAILY PRN 09/12/19 03/07/25 80 0.5 %-1 %-0.5 % eye drops Dry Eyes (Refresh Optive Advanced) sodium chloride 0.65 % nasal spray 1 spray intranasal BID PRN Nasal 04/03/20 03/07/25 aerosol ([place] Saline) Congestion psyllium husk 0.52 gram capsule 0.52 g PO DAILY 09/14/20 03/07/25 (Fiber-Caps (psyllium husk)) aspirin 81 mg tablet,delayed 81 mg PO Q OTHER DAY 09/30/24 03/07/25 release Lactobacillus acidophilus 1,000 mmu cells PO DAILY 03/07/25 03/07/25 ascorbic acid (vitamin C) 250 mg 250 mg PO QDL 03/07/25 03/07/25 chewable tablet (Vitamin C) elderberry fruit 350 mg capsule 350 mg PO QDL 03/07/25 03/07/25 levothyroxine 75 mcg tablet 75 mcg PO DAILYBB 03/07/25 03/07/25 (Synthroid) omega 3 350 mg-dha 235 mg-epa 90 1 cap PO QDL 03/07/25 03/07/25 mg-fish oil 597 mg capsule,delay rel (Ranger-3) turmeric root extract 150 1 tab PO QDL 03/07/25 03/07/25 mg-lori root extract 25 mg chewable tablet Previous Rx's Medication Instructions Recorded carvedilol 6.25 mg tablet 6.25 mg PO BID #180 tabs 04/01/24 furosemide 40 mg tablet (Lasix) 40 mg PO BID #180 tabs 04/01/24 sacubitril 49 mg-valsartan 51 mg 1 tab PO BID #180 tabs 07/18/24 tablet (Entresto) magnesium oxide 400 mg (241.3 mg 400 mg PO BID #60 tabs 09/30/24 magnesium) tablet potassium chloride 10 mEq 10 meq PO BID #60 tabs 09/30/24 tablet,extended release(part/cryst) (Klor-Con M) Results & Data (ED) Vital Signs Vital Signs - 24 hr 03/07/25 11:19 03/07/25 11:28 03/07/25 11:29 Temperature 36.5 C Temperature Source Oral Pulse Rate 96 H 94 H Pulse Rate [Apical] 94 H Respiratory Rate 20 20 Respiratory Effort / Characteristics Non-Labored Spontaneous Non-Labored Spontaneous Respiratory Depth Normal Normal Blood Pressure 153/83 H Blood Pressure [Right Arm] 153/83 H Blood Pressure Mean 106 Blood Pressure Mean [Right Arm] 106 Blood Pressure Position Sitting Blood Pressure Position [Right Arm] Lying Pulse Oximetry 99 98 Oxygen Delivery Method Room Air Room Air Sepsis Recent Fever Within 48 Hours No Sepsis New/Unexplained Change in Mental Status No Sepsis Action Taken by Nursing No Action Required 03/07/25 13:04 03/07/25 14:56 Temperature Temperature Source Pulse Rate Pulse Rate [Apical] 90 94 H Respiratory Rate 20 18 Respiratory Effort / Characteristics Non-Labored Spontaneous Respiratory Depth Normal Blood Pressure Blood Pressure [Right Arm] 114/74 108/69 Blood Pressure Mean Blood Pressure Mean [Right Arm] 87 82 Blood Pressure Position Blood Pressure Position [Right Arm] Lying Pulse Oximetry 94 98 Oxygen Delivery Method Room Air Room Air Sepsis Recent Fever Within 48 Hours Sepsis New/Unexplained Change in Mental Status Sepsis Action Taken by Retirement Medications Current Medication List: was personally reviewed by me Laboratory Data Attestation: I reviewed the patient's lab results. 03/07/25 12:48 03/07/25 11:46 Lab Results 03/07/25 03/07/25 03/07/25 Range/Units 11:46 12:48 13:02 WBC Cancelled 19.45 H RBC Cancelled 4.22 Hgb Cancelled 13.5 Hct Cancelled 39.8 MCV Cancelled 94.3 MCH Cancelled 32.0 MCHC Cancelled 33.9 RDW Std Deviation Cancelled 43.6 RDW Coeff of Bair[place] Cancelled 12.7 Plt Count Cancelled 191 MPV Cancelled 12.1 Immature Gran % (Auto) Cancelled 0.8 Neut % (Auto) Cancelled 85.9 Lymph % (Auto) Cancelled 6.0 [place] % (Auto) Cancelled 7.2 Eos % (Auto) Cancelled 0.0 Baso % (Auto) Cancelled 0.1 Neut # (Auto) Cancelled 16.72 H Lymph # (Auto) Cancelled 1.16 L [place] # (Auto) Cancelled 1.40 H Eos # (Auto) Cancelled 0.00 Baso # (Auto) Cancelled 0.02 Immature Gran # (Auto) Cancelled 0.15 Absolute Nucleated RBC Cancelled Nucleated RBC % (auto) Cancelled Neutrophils % (Manual) Cancelled Band Neutrophils % Cancelled Lymphocytes % (Manual) Cancelled Prolymphocyte % Cancelled Reactive Lymphs % (Man) Cancelled Monocytes % (Manual) Cancelled Eosinophils % (Manual) Cancelled Basophils % (Manual) Cancelled Metamyelocytes % (Man) Cancelled Myelocytes % (Man) Cancelled Promyelocytes % (Man) Cancelled Blast Cells % (Manual) Cancelled Plasma Cell % (Manual) Cancelled Other Cells % Cancelled Nucleated RBC % Cancelled Neutrophils # (Manual) Cancelled Band Neutrophils # Cancelled Total Absolute Neuts Cancelled Lymphocytes # (Manual) Cancelled Prolymphocyte # Cancelled Reactive Lymphs # Cancelled Total Abs Lymphocytes Cancelled Monocytes # (Manual) Cancelled Eosinophils # (Manual) Cancelled Basophils # (Manual) Cancelled Metamyelocytes # (Man) Cancelled Myelocytes # (Manual) Cancelled Promyelocytes # (Man) Cancelled Blast Cells # (Man) Cancelled Plasma Cell # (Manual) Cancelled Other Cells # Cancelled Nucleated RBCs # (Man) Cancelled Hypersegmented Neuts Cancelled Hyposegmented Neuts Cancelled Hypogranular Neuts Cancelled Large Granular Lymphs Cancelled # Lrg Granular Lymphs Cancelled Hairy Cells Cancelled Smudge Cells Cancelled Toxic Granulation Cancelled Toxic Vacuolation Cancelled Dohle Bodies Cancelled Jamie Rods Cancelled Platelet Estimate Cancelled Hypogranular Platelets Cancelled Giant Platelets Cancelled Platelet Satelliting Cancelled RBC Morphology Cancelled Polychromasia Cancelled Hypochromasia Cancelled Poikilocytosis Cancelled Basophilic Stippling Cancelled Anisocytosis Cancelled Microcytosis Cancelled Macrocytosis Cancelled Spherocytes Cancelled Pappenheimer Bodies Cancelled Sickle Cells Cancelled Target Cells Cancelled Tear Drop Cells Cancelled Ovalocytes Cancelled Stomatocytes Cancelled [place] Bodies Cancelled Echinocytes Cancelled Acanthocytes (Spur) Cancelled Rouleaux Cancelled RBC Agglutinates Cancelled Schistocytes Cancelled Sezary Cell Cancelled Sodium 140 (136-145) mmol/L Potassium 4.0 (3.5-5.1) mmol/L Chloride 106 (98-107) mmol/L Carbon Dioxide 20 L (21-32) mmol/L Anion Gap 14 H (3-11) BUN 54 H (6-23) mg/dl Creatinine 1.22 H (0.6-1.2) mg/dl Est Cr Clr Drug Dosing 23.3 ml/min eGFR 44.03 BUN/Creatinine Ratio 44.3 H (10-20) Glucose 118 H (70-99(Fasting)) mg/dl Lactate (0.4-2.0) mmol/L Calcium 9.2 (8.6-10.3) mg/dl Magnesium 2.8 H (1.7-2.4) mg/dl Total Bilirubin 0.9 (0.2-1.0) mg/dl AST 94 H (13-39) U/L ALT 27 (7-52) U/L Alkaline Phosphatase 55 (34-104) U/L Total Creatine Kinase 2621 H (26-192) U/L Troponin I High Sens 74518.5 H* (0-14) pg/ml C-Reactive Protein 4.02 H (0-0.5) mg/dl Total Protein 6.6 (6.0-8.3) gm/dl Albumin 3.9 (3.4-5.0) gm/dl Globulin 2.7 (2.5-4.0) gm/dl Albumin/Globulin Ratio 1.4 (0.9-2) Procalcitonin 1.74 H (0-0.5) ng/ml TSH 0.734 (0.300-4.500) uIu/ml Urine Color Yellow Urine Appearance Clear (Clear) Urine pH 5.0 (4.5-7.5) Ur Specific [place] 1.016 (1.000-1.030) Urine Protein Negative (Negative) Urine Glucose (UA) Negative (Negative) Urine Ketones 1+ H (Negative) Urine Blood Trace H (Negative) Urine Nitrite Negative (Negative) Urine Bilirubin Negative (Negative) Urine Urobilinogen Negative (Negative) Ur Leukocyte Esterase 1+ H (Negative) Urine WBC (Auto) 6-10 H (0-5) /hpf Urine RBC (Auto) 0-2 (0-2) /hpf U Hyaline Cast (Auto) >20 H (0-2) /lpf U Epithel Cells (Auto) 0-2 (0-2) /hpf Urine Bacteria (Auto) None Seen (None Seen) Urine Comment Blood Parasites ID Cancelled 03/07/25 Range/Units 14:04 WBC RBC Hgb Hct MCV MCH MCHC RDW Std Deviation RDW Coeff of Bairon Plt Count MPV Immature Gran % (Auto) Neut % (Auto) Lymph % (Auto) [place] % (Auto) Eos % (Auto) Baso % (Auto) Neut # (Auto) Lymph # (Auto) [place] # (Auto) Eos # (Auto) Baso # (Auto) Immature Gran # (Auto) Absolute Nucleated RBC Nucleated RBC % (auto) Neutrophils % (Manual) Band Neutrophils % Lymphocytes % (Manual) Prolymphocyte % Reactive Lymphs % (Man) Monocytes % (Manual) Eosinophils % (Manual) Basophils % (Manual) Metamyelocytes % (Man) Myelocytes % (Man) Promyelocytes % (Man) Blast Cells % (Manual) Plasma Cell % (Manual) Other Cells % Nucleated RBC % Neutrophils # (Manual) Band Neutrophils # Total Absolute Neuts Lymphocytes # (Manual) Prolymphocyte # Reactive Lymphs # Total Abs Lymphocytes Monocytes # (Manual) Eosinophils # (Manual) Basophils # (Manual) Metamyelocytes # (Man) Myelocytes # (Manual) Promyelocytes # (Man) Blast Cells # (Man) Plasma Cell # (Manual) Other Cells # Nucleated RBCs # (Man) Hypersegmented Neuts Hyposegmented Neuts Hypogranular Neuts Large Granular Lymphs # Lrg Granular Lymphs Hairy Cells Smudge Cells Toxic Granulation Toxic Vacuolation Dohle Bodies Jamie Rods Platelet Estimate Hypogranular Platelets Giant Platelets Platelet Satelliting RBC Morphology Polychromasia Hypochromasia Poikilocytosis Basophilic Stippling Anisocytosis Microcytosis Macrocytosis Spherocytes Pappenheimer Bodies Sickle Cells Target Cells Tear Drop Cells Ovalocytes Stomatocytes [place] Bodies Echinocytes Acanthocytes (Spur) Rouleaux RBC Agglutinates Schistocytes Sezary Cell Sodium (136-145) mmol/L Potassium (3.5-5.1) mmol/L Chloride (98-107) mmol/L Carbon Dioxide (21-32) mmol/L Anion Gap (3-11) BUN (6-23) mg/dl Creatinine (0.6-1.2) mg/dl Est Cr Clr Drug Dosing ml/min eGFR BUN/Creatinine Ratio (10-20) Glucose (70-99(Fasting)) mg/dl Lactate 2.5 H* (0.4-2.0) mmol/L Calcium (8.6-10.3) mg/dl Magnesium (1.7-2.4) mg/dl Total Bilirubin (0.2-1.0) mg/dl AST (13-39) U/L ALT (7-52) U/L Alkaline Phosphatase (34-104) U/L Total Creatine Kinase (26-192) U/L Troponin I High Sens 53949.4 H* (0-14) pg/ml C-Reactive Protein (0-0.5) mg/dl Total Protein (6.0-8.3) gm/dl Albumin (3.4-5.0) gm/dl Globulin (2.5-4.0) gm/dl Albumin/Globulin Ratio (0.9-2) Procalcitonin (0-0.5) ng/ml TSH (0.300-4.500) uIu/ml Urine Color Urine Appearance (Clear) Urine pH (4.5-7.5) Ur Specific [place] (1.000-1.030) Urine Protein (Negative) Urine Glucose (UA) (Negative) Urine Ketones (Negative) Urine Blood (Negative) Urine Nitrite (Negative) Urine Bilirubin (Negative) Urine Urobilinogen (Negative) Ur Leukocyte Esterase (Negative) Urine WBC (Auto) (0-5) /hpf Urine RBC (Auto) (0-2) /hpf U Hyaline Cast (Auto) (0-2) /lpf U Epithel Cells (Auto) (0-2) /hpf Urine Bacteria (Auto) (None Seen) Urine Comment Blood Parasites ID Administered Medications Discontinued Medications Sodium Chloride (Nss) 500 mls @ 999 mls/hr IV .Q31M AYO Stop: 03/07/25 11:45 Last Infusion: 03/07/25 13:25 Dose: Infused Documented By: Admin: 03/07/25 11:35 Dose: 999 mls/hr Documented By: malka Sodium Chloride (Nss) 500 mls @ 999 mls/hr IV .Q31M ONE Stop: 03/07/25 13:45 Last Admin: 03/07/25 13:25 Dose: 999 mls/hr Documented By: CC Imaging Data Attestation: I personally reviewed and interpreted this imaging study as follows: My Impression: 1 view chest x-ray was obtained in the emergency department. My interpretation is no free air or definite infiltrate, final report below. Radiologist's Impression: Chest X-Ray 03/07/25 11:12 XR chest 1V portable HISTORY: 84 years-old Female weakness acute weakness COMPARISON: 05/04/2020 TECHNIQUE: AP view of the chest FINDINGS: Cardiac silhouette is again enlarged. No pneumothorax pulmonary edema. Trace pleural effusions with mild patchy left basilar densities. Mid thoracic levoscoliosis. Chronic deformity left humeral head with severe degeneration of the left glenohumeral joint. Right shoulder arthroplasty. IMPRESSION: 1. Cardiomegaly without overt pulmonary edema. 2. Trace pleural effusions with mild left basilar opacities favoring atelectasis. A mild pneumonitis could appear similarly. ACT 112: Negative or not required by law. The above report was generated using voice recognition software. It may contain grammatical, syntax or spelling errors. Electronically signed by: Syed Friend M.D. 03/07/2025 11:37 AM Pelvis X-Ray 03/07/25 11:12 XR pelvis 1-2V routine CLINICAL HISTORY: Fall. COMPARISON: None FINDINGS: Sacroiliac joints and symphysis pubis are intact. No acute fractures within the pelvis or hips are identified. Total right hip arthroplasty is intact. There is no periprosthetic fracture. Foreshortening of the left femoral neck is likely positional. There is a moderate amount of stool within the rectum. IMPRESSION: 1. No acute fractures within the pelvis or hips. 2. Apparent foreshortening of the left femoral neck which is likely positional. 3. Intact total right hip arthroplasty. ACT 112: Negative or not required by law. Electronically signed by: Carlos Hatfield M.D. 03/07/2025 11:[address] 03/07/25 11:13 CT SCAN OF THE BRAIN WITHOUT IV CONTRAST CLINICAL HISTORY: Fall. COMPARISON STUDY: MRI of the brain November 11, 2019. TECHNIQUE: Unenhanced axial CT scan of the brain was performed from the vertex to the skull base. A dose lowering technique was utilized adhering to the principles of ALARA. CT DOSE: 1066.23 mGy.cm FINDINGS: Brain parenchyma: No acute intracranial hemorrhage, midline shift or mass effect is present. Sierra-white matter differentiation is preserved. There are no extra- axial fluid collections. There are no findings to suggest acute dural sinus thrombosis or acute territorial infarct. Ventricles, sulci, cisterns: There is no hydrocephalus. The basal cisterns are patent. Calvarium: There are no calvarial fractures. Orbits: The bony orbits are grossly intact. IMPRESSION: 1. No acute intracranial findings. 2. No calvarial fractures. ACT 112: Negative or not required by law. Electronically signed by: Carlos Hatfield M.D. 03/07/2025 1:[address] 03/07/25 12:06 CT hip LT wo con HISTORY: 84 years-old Female fall acute pelvic pain status post fall COMPARISON: Pelvis x-ray of same day TECHNIQUE: Multiple axial CT images of the left hip were obtained without IV contrast. A dose lowering technique was used consistent with the principals of GEORGINA. FINDINGS: Moderate osteoarthritis of the left hip. No acute fracture, dislocation or avascular necrosis. No large joint effusion. There is moderate atrophy of the left upper thigh musculature. Arterial calcifications. Distended urinary bladder with left posterolateral diverticulum. Moderate fecal retention in the rectum. No lymphadenopathy. IMPRESSION: Moderate osteoarthritis without acute fracture or dislocation. ACT 112: Negative or not required by law. The above report was generated using voice recognition software. It may contain grammatical, syntax or spelling errors. Electronically signed by: Syed Friend M.D. 03/07/2025 1:12 PM Discharge Plan Visit Data Chief Complaint: Fall Stated Complaint: FALL ED Provider: Rich Richardson Discharge Problem: Acute non-ST elevation myocardial infarction (NSTEMI), Weakness, Rhabdomyolysis, Pressure sore, Acidosis, lactic, DONALD (acute kidney injury) Patient Disposition: Admitted As Inpatient Condition: Fair Discharge Instructions Interventions: ED Discharge Assessment Last Done: 03/07/25 15:05 Forms Stand Alone Forms: [facility] Prescriptions Prescriptions: No Action sacubitril-valsartan [Entresto] 49-51 mg tablet 1 tab PO BID Qty: 180 3RF psyllium husk [Fiber-Caps (psyllium husk)] 0.52 gram capsule 0.52 g PO DAILY aspirin 81 mg tablet,delayed release (DR/EC) 81 mg PO Q OTHER DAY potassium chloride [Klor-Con M10] 10 mEq tablet,ER particles/crystals 10 meq PO BID Qty: 60 11RF magnesium oxide 400 mg (241.3 mg magnesium) tablet 400 mg PO BID Qty: 60 11RF furosemide [Lasix] 40 mg tablet 40 mg PO BID Qty: 180 3RF carvedilol 6.25 mg tablet 6.25 mg PO BID Qty: 180 3RF Rx Instructions: must administer with a meal/food [place] Saline 0.65 % Aerosol,[place] 1 spray INTRANASAL BID PRN (Reason: Nasal Congestion) cannabidiol 100 mg/mL Solution 25 mg PO DAILY PRN (Reason: Pain) Refresh Optive Advanced 0.5-1-0.5 % Drops 1 drp OPHTHALMIC (EYE) DAILY PRN (Reason: Dry Eyes) levothyroxine [Synthroid] 75 mcg tablet 75 mcg PO DAILYBB Rx Instructions: PT MUST HAVE NAME BRAND ascorbic acid (vitamin C) [Vitamin C] 250 mg Tablet,Chewable 250 mg PO QDL Lactobacillus acidophilus Capsule 1,000 mmu cells PO DAILY Ranger-3 350 mg-235 mg- 90 mg-597 mg Capsule,Delayed Release(Dr/Ec) 1 cap PO QDL Rx Instructions: Ranger XL turmeric root-lori root ext 150-25 mg Tablet,Chewable 1 tab PO QDL elderberry fruit 350 mg Capsule 350 mg PO QDL Rx Instructions: 1 gummy PO daily Referrals Referrals: Alexa Boggs CRNP [Primary Care Provider] -
[2025-03-07] MEDS: SODIUM CHLORIDE 0.9% 500 ML IV SCH (11:35)
--- NOTE | 2025-03-07 11:38 | XRay Report ---
XR chest 1V portable HISTORY: 84 years-old Female weakness acute weakness COMPARISON: 05/04/2020 TECHNIQUE: AP view of the chest FINDINGS: Cardiac silhouette is again enlarged. No pneumothorax pulmonary edema. Trace pleural effusions with m ild patchy left basilar densities. Mid thoracic levoscoliosis. Chronic deformity left humeral head wi th severe degeneration of the left glenohumeral joint. Right shoulder arthroplasty. IMPRESSION: 1. Cardiomegaly without overt pulmonary edema. 2. Trace pleural effusions with mild left basilar opacities favoring atelectasis. A mild pneumonitis could appear similarly. ACT 112: Negative or not required by law. The above report was generated using voice recognition software. It may contain grammatical, syntax o r spelling errors. Electronically signed by: Syed Friend M.D. 03/07/2025 11:37 AM
--- NOTE | 2025-03-07 11:45 | XRay Report ---
XR pelvis 1-2V routine CLINICAL HISTORY: Fall. COMPARISON: None FINDINGS: Sacroiliac joints and symphysis pubis are intact. No acute fractures within the pelvis or hips are identified. Total right hip arthroplasty is intact. There is no periprosthetic fracture. For eshortening of the left femoral neck is likely positional. There is a moderate amount of stool within the rectum. IMPRESSION: 1. No acute fractures within the pelvis or hips. 2. Apparent foreshortening of the left femoral neck which is likely positional. 3. Intact total right hip arthroplasty. ACT 112: Negative or not required by law. Electronically signed by: Carlos Hatfield M.D. 03/07/2025 11:43 AM
[2025-03-07 12:28] LABS: Anion Gap 14.0 (3-11); Blood Urea Nitrogen 54.0 mg/dl (6-23); Calcium 9.2 mg/dl (8.6-10.3); Carbon Dioxide 20.0 mmol/L (21-32); Chloride 106.0 mmol/L (98-107); Creatinine Clr Calc Pharmacy 23.3 ml/min; Glucose 118.0 mg/dl (70-99(Fasting)); Potassium 4.0 mmol/L (3.5-5.1); Sodium 140.0 mmol/L (136-145)
[2025-03-07 12:29] LABS: Alanine Aminotransferase 27.0 U/L (7-52); Albumin Globulin Ratio 1.4 (0.9-2); Alkaline Phosphatase 55.0 U/L (34-104); Bilirubin,Total 0.9 mg/dl (0.2-1.0); Globulin 2.7 gm/dl (2.5-4.0); Magnesium 2.8 mg/dl (1.7-2.4); Total Protein 6.6 gm/dl (6.0-8.3)
[2025-03-07 12:43] LABS: Thyroid Stimulating Hormone 0.734 uIu/ml (0.300-4.500)
[2025-03-07 12:44] LABS: Creatine Kinase 2621.0 U/L (26-192)
--- NOTE | 2025-03-07 13:06 | CT Scan Report ---
CT SCAN OF THE BRAIN WITHOUT IV CONTRAST CLINICAL HISTORY: Fall. COMPARISON STUDY: MRI of the brain November 11, 2019. TECHNIQUE: Unenhanced axial CT scan of the brain was performed from the vertex to the skull base. A dose lowering technique was utilized adhering to the principles of ALARA. CT DOSE: 1066.23 mGy.cm FINDINGS: Brain parenchyma: No acute intracranial hemorrhage, midline shift or mass effect is present. Sierra-whi te matter differentiation is preserved. There are no extra-axial fluid collections. There are no find ings to suggest acute dural sinus thrombosis or acute territorial infarct. Ventricles, sulci, cisterns: There is no hydrocephalus. The basal cisterns are patent. Calvarium: There are no calvarial fractures. Orbits: The bony orbits are grossly intact. IMPRESSION: 1. No acute intracranial findings. 2. No calvarial fractures. ACT 112: Negative or not required by law. Electronically signed by: Carlos Hatfield M.D. 03/07/2025 1:04 PM
[2025-03-07 13:08] LABS: Hematocrit (blood only) 39.8 % (37.0-47.0); Hemoglobin 13.5 g/dl (12.0-16.0); Immature Granulocytes # (auto) 0.15 K/uL (0.01-0.20); Immature Granulocytes % (auto) 0.8 %; Mean Corpuscular Hemoglobin 32.0 pg (25.0-34.0); Mean Corpuscular Volume 94.3 fL (80.0-100.0); Platelet Count 191 K/uL (130-400); RDW Standard Deviation 43.6 fL (36.4-46.3); Red Blood Count 4.22 M/uL (4.20-5.40); White Blood Count 19.45 K/ul (4.8-10.8)
--- NOTE | 2025-03-07 13:14 | CT Scan Report ---
CT hip LT wo con HISTORY: 84 years-old Female fall acute pelvic pain status post fall COMPARISON: Pelvis x-ray of same day TECHNIQUE: Multiple axial CT images of the left hip were obtained without IV contrast. A dose lowerin g technique was used consistent with the principals of GEORGINA. FINDINGS: Moderate osteoarthritis of the left hip. No acute fracture, dislocation or avascular necrosis. No lar ge joint effusion. There is moderate atrophy of the left upper thigh musculature. Arterial calcificat ions. Distended urinary bladder with left posterolateral diverticulum. Moderate fecal retention in the rect um. No lymphadenopathy. IMPRESSION: Moderate osteoarthritis without acute fracture or dislocation. ACT 112: Negative or not required by law. The above report was generated using voice recognition software. It may contain grammatical, syntax o r spelling errors. Electronically signed by: Syed Friend M.D. 03/07/2025 1:12 PM
[2025-03-07] MEDS: SODIUM CHLORIDE 0.9% 500 ML IV ONE (13:25)
[2025-03-07 13:29] LABS: Appearance Urine Clear (Clear); Bacteria Urine Automated None Seen (None Seen); Cast Urine Automated >20 /lpf (0-2); Epithelial Cell Urine Auto 0-2 /hpf (0-2); Glucose Urine UA Negative (Negative); RBC Urine Automated 0-2 /hpf (0-2)
--- NOTE | 2025-03-07 14:08 | History & Physical Report ---
Date of Service March 07, 2025 Assessment & Plan (1) NSTEMI (non-ST elevated myocardial infarction): (2) Rhabdomyolysis: (3) Chronic kidney disease, stage 3a: (4) Pituitary adenoma: (5) Hypothyroidism: Plan 84-year-old female who suffers from heart failure reduced ejection fraction, moderate to severe aortic stenosis, who had a controlled fall in her bathtub 1 day prior to admission and presents with inability get out of her tub. She has some bruising from being in the tub for this long. A troponin of over 10,000 and CK over 2000. She has known coronary issues typically follows with Dr. Espinoza she typically takes carvedilol and Entresto for heart failure reduced ejection fraction (40%) and the last echocardiogram she has moderate-severe aortic stenosis. She has marked leukocytosis and concern for urinary tract infection present on admission. #NSTEMI patiently has markedly elevated troponin. She denies chest pain and has a baseline left bundle branch block. She suffers from chronic heart failure reduced ejection fraction does not appear to be in acute exacerbation although there is some concern about the significance of aortic stenosis and her weakness event. Patient will have serial troponins checked she is maintained on aspirin carvedilol and Entresto. Diuretics are held the fact that she will need some hydration given her rhabdomyolysis. #Rhabdomyolysis this is mild we will hydrate her her kidney function shows acute kidney injury on chronic kidney disease stage III. #Leukocytosis. Patient been given Rocephin for possible urinary tract infection pending results of urinalysis and culture. #Pituitary adenoma this is slightly noticed on the 2019 MRI scan noted to be 2 mm Heparin is used for DVT prevention. History of Present Illness Primary Care Provider: AV Morales The patient is an 84-year-old female who presented to the emergency department for an evaluation after a controlled fall in her tub being unable to get up for over 12 hours She did not fall completely but slid to the bottom of the tub. This occurred at 4 PM 03/06/25. The patient denies having any chest pain or difficulty breathing. She does complain of lower extremity numbness because she states she was uncomfortable in the tub. She was noted to have pressure injuries by the prehospital personnel. The patient states that she has not been able to take any of her morning medications. She has a history of HFrEF and severe , she also takes a diuretic and some otc Cannabinoid medication she has a troponin of 10,000 and CK of 2000, she has mild ovi on ckd3, imaging does not show a fracture, she has a leukocytosis and abnormal urine on admission Allergies Allergy/AdvReac Type Severity Reaction Status Date / Time levothyroxine Allergy Severe Generic Unverified 03/07/25 13:37 caused nose bleed, name brand works perfectly acetaminophen Allergy Unknown DIZZINESS/D Verified 03/07/25 13:37 IAPHORETIC amlodipine Allergy Unknown SWOLLEN Verified 03/07/25 13:37 LEGS clonidine Allergy Unknown "VARIETY Verified 03/07/25 13:37 OF COMPLICATIONS" latex Allergy Unknown RASH Verified 03/07/25 13:37 losartan Allergy Unknown "MULTIPLE Verified 03/07/25 13:37 PROBLEMS" spironolactone Allergy Unknown "MULTIPE Verified 03/07/25 13:37 PROBLEMS", COULD NOT TOLERATE terazosin Allergy Unknown SWOLLEN Verified 03/07/25 13:37 LEGS onion AdvReac Severe Heart Burn Unverified 03/07/25 13:37 hydrochlorothiazide AdvReac Unknown "COULD NOT Verified 03/07/25 13:37 TOLERATE" lisinopril AdvReac Unknown Per PT Verified 03/07/25 13:37 raised BP metoprolol AdvReac Unknown COULD NOT Verified 03/07/25 13:37 TOLERATE Sulfa (Sulfonamide AdvReac Unknown "COULD NOT Verified 03/07/25 13:37 Antibiotics) TOLERATE" Home Medications Medication Instructions Recorded Confirmed Type cannabidiol 100 mg/mL oral solution 25 mg PO DAILY PRN Pain 09/12/19 03/07/25 History [id number]-zqrmicef-[id number] 1 drp ophthalmic (eye) DAILY PRN 09/12/19 03/07/25 History 80 0.5 %-1 %-0.5 % eye drops Dry Eyes (Refresh Optive Advanced) sodium chloride 0.65 % nasal spray 1 spray intranasal BID PRN Nasal 04/03/20 03/07/25 History aerosol ([place] Saline) Congestion psyllium husk 0.52 gram capsule 0.52 g PO DAILY 09/14/20 03/07/25 History (Fiber-Caps (psyllium husk)) carvedilol 6.25 mg tablet 6.25 mg PO BID #180 tabs 04/01/24 03/07/25 Rx furosemide 40 mg tablet (Lasix) 40 mg PO BID #180 tabs 04/01/24 03/07/25 Rx sacubitril 49 mg-valsartan 51 mg 1 tab PO BID #180 tabs 07/18/24 03/07/25 Rx tablet (Entresto) aspirin 81 mg tablet,delayed 81 mg PO Q OTHER DAY 09/30/24 03/07/25 History release magnesium oxide 400 mg (241.3 mg 400 mg PO BID #60 tabs 09/30/24 03/07/25 Rx magnesium) tablet potassium chloride 10 mEq 10 meq PO BID #60 tabs 09/30/24 03/07/25 Rx tablet,extended release(part/cryst) (Klor-Con M) Lactobacillus acidophilus 1,000 mmu cells PO DAILY 03/07/25 03/07/25 History ascorbic acid (vitamin C) 250 mg 250 mg PO QDL 03/07/25 03/07/25 History chewable tablet (Vitamin C) elderberry fruit 350 mg capsule 350 mg PO QDL 03/07/25 03/07/25 History levothyroxine 75 mcg tablet 75 mcg PO DAILYBB 03/07/25 03/07/25 History (Synthroid) omega 3 350 mg-dha 235 mg-epa 90 1 cap PO QDL 03/07/25 03/07/25 History mg-fish oil 597 mg capsule,delay rel ([place]-3) turmeric root extract 150 1 tab PO QDL 03/07/25 03/07/25 History mg-lori root extract 25 mg chewable tablet Past Med/Surg History Problem List (Updated 03/07/25 @ 14:05 by Tera Hill MD) Rhabdomyolysis NSTEMI (non-ST elevated myocardial infarction) Statin declined Back pain of thoracolumbar region Unsteady gait when walking Aortic stenosis Chronic pain Chronic kidney disease, stage 3a Bilateral edema of lower extremity (Acute) Pituitary abnormality Chronic systolic CHF (congestive heart failure) EF 30-35%. Now on Entresto, following with [facility] cardio and CHF clinic. Medications still being titrated, will have f/u echo once medications are fully optimized. Hypertension (Chronic) Hypothyroidism (Chronic) Hypokalemia Scoliosis (Acute) Hyperlipidemia (Acute) refuses treatment, using supplements Encounter for long-term (current) use of high-risk medication (Acute) Complete left bundle branch block (Acute) Hypokalemia (Acute) Hypomagnesemia (Acute) Left ventricular dysfunction Underweight Pituitary adenoma Generalized weakness (Acute) Cardiomyopathy Mitral regurgitation Osteoarthritis Hyponatremia chronic, baseline sodium low 130's- PCP aware/feel related to chlorthalidone and supplements but d/t multiple allergies will continue with chlorthalidone and monitor hyponatremia Medical History Hypothyroidism Cardiac murmur Moderate MR on echo 11/11/19 CHF (congestive heart failure) CHF hospitalization 10/2019 [place] -- follows w/ Dr. Espinoza Personal history of poliomyelitis age 12 Urinary incontinence Hypertension Surgical History Status post reverse arthroplasty of right shoulder (~03/2020) S/P hip replacement right History of cataract surgery left Hx of eye surgery lens replacement on 09/22/19 Family History Father Myocardial infarction Other No family history of adverse response to anesthesia Denies family history of Ovarian cancer Prostate cancer Breast cancer Colorectal cancer Social History Smoking Status: Never smoker Second Hand Exposure: Yes (back when she worked at the [employer]. 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 Beliefs That Will Affect Care: None marital status: Single Current Living Situation: Family current occupational status: retired How many Children do You have: 0 Feels Safe at Home: Yes Childhood Exposure to Second-Hand Smoke: Yes Diet: regular caffeine: Yes Dental Care, Regularly: Yes Physical Activity Frequency: Does not Exercise Seatbelt Use: always Sunscreen Use: No Assistive Devices: Brace/Splint/Immobilizer, Glasses, Oxygen - at Night and Walker Review of Systems Review of Systems: Mild distress and fatigue no headache, no visual changes no speech or swallowing issues no chest pain, pressure or palpitations no shortness of breath, cough or wheezes no abdominal pain, nausea or vomiting, diarrhea or constipation no dysuria, hematuria or frequency no focal joint pain or swelling no back pain, CVA tenderness or radicular pain no bruising, bleeding or rashes no focal signs of weakness or numbness or altered sensation no complaints of anxiety or depression.. Physical Exam Physical Exam: The patient appeared well nourished and normally developed. Vital signs as documented. Head exam is normocephalic atraumatic Neck is without JVD, thyromegaly, or carotid bruits. Lungs are clear to auscultation, no focal loss of breath sounds Cardiac exam, Rhythm is regular..MIHIR Abdominal exam reveals normal bowel sounds, soft non tender, no masses Extremities are nonedematous and both pedal pulses are present Neurologic exam is alert and oriented, no focal loss of strength or sensation Skin is with pressue type bruises on shoulder and back along with a few on her legs Psychologically is without concerns for anxiety or depression.. Results & Data Results & Data Vital Signs (Past 12 Hours) Vital Signs Temp Pulse Pulse Resp BP BP Pulse Ox 03/07/25 13:04 90 20 114/74 94 03/07/25 11:29 94 H 20 153/83 H 98 03/07/25 11:28 94 H 03/07/25 11:19 97.7 F 96 H 20 153/83 H 99 O2 Del Method 03/07/25 13:04 Room Air 03/07/25 11:29 Room Air 03/07/25 11:28 03/07/25 11:19 Room Air Laboratory Results Reviewed CBC reviewed chemistry Reviewed elevation troponin and CK Discussed the case with Dr. Richardson ER provider Code Status & VTE Plan VTE Prophylaxis Plan VTE Prophylaxis will be ordered: Yes PG Care Time/CCT Total # of Minutes Spent Total Time Spent with Patient: Total time spent is greater than 50% in coordination of care (as documented) at patient's floor/unit and/or counseling patient: Coding Level of Care Code 31902 INT INP/OBS CARE 375MIN Diagnoses NSTEMI (non-ST elevated myocardial infarction) I21.4 Rhabdomyolysis M62.82 Chronic kidney disease, stage 3a N18.31 Pituitary adenoma D35.2 Hypothyroidism E03.9
[2025-03-07] MEDS: PIPERACILLIN/TAZOBACTAM 4.5 GM/100 ML BAG IV ONE (15:58)
[2025-03-07] MEDS ORDERED: ACETAMINOPHEN 325 MG TAB PO PRN (17:10)
[2025-03-07] MEDS ORDERED: ALUMINUM/MAGNESIUM SUSP 30 ML UDC PO PRN (17:10)
[2025-03-07] MEDS ORDERED: ONDANSETRON INJ 2 MG/ML 2 ML VIAL IV PRN (17:10)
[2025-03-07] MEDS ORDERED: NITROGLYCERIN SL 0.4 MG/TAB TAB SL PRN (17:10)
[2025-03-07] MEDS ORDERED: SODIUM CHLORIDE 0.65% NA SOLN 45 ML (OCEAN) PRN (17:10)
[2025-03-07] MEDS ORDERED: ARTIFICIAL TEARS OP PRN (17:13)
--- NOTE | 2025-03-07 17:33 | XCELERA ---
[id number]
[2025-03-07] MEDS: cefTRIAXone SODIUM 1,000 MG/50 ML BAG IV SCH (18:34)
[2025-03-07] MEDS: SODIUM CHLORIDE 0.9% 1,000 ML IV SCH (18:34)
[2025-03-07] MEDS: ASPIRIN 81 MG ECTAB PO SCH (18:39)
[2025-03-07] MEDS: VALSARTAN/SACUBITRIL 51/49 MG TAB PO SCH (20:50)
[2025-03-07] MEDS: HEPARIN SOD 5,000 UNIT/0.5 ML VIAL SQ SCH (20:50)
[2025-03-08] MEDS ORDERED: COUGH DROP (SUGAR FREE) LOZ 24 LOZ/1 BOX BUCCAL PRN (00:48)
--- NOTE | 2025-03-08 07:58 | Hospitalist Progress Note ---
Date of Service March 08, 2025 Assessment & Plan (1) NSTEMI (non-ST elevated myocardial infarction): (2) Rhabdomyolysis: (3) Chronic kidney disease, stage 3a: (4) Pituitary adenoma: (5) Hypothyroidism: Plan 84-year-old female who suffers from heart failure reduced ejection fraction, moderate to severe aortic stenosis, who had a controlled fall in her bathtub 1 day prior to admission and presents with inability get out of her tub. She has some bruising from being in the tub for this long. A troponin of over 10,000 and CK over 2000. She has known coronary issues typically follows with Dr. Espinoza she typically takes carvedilol and Entresto for heart failure reduced ejection fraction (40%) and the last echocardiogram she has moderate-severe aortic stenosis. She has marked leukocytosis and concern for urinary tract infection present on admission. #NSTEMI patiently has markedly elevated troponin. She denies chest pain and has a baseline left bundle branch block. Her echocardiogram shows depressed ejection fraction and persistent severe aortic stenosis her chronic heart failure reduced ejection fraction does not appear to be in acute exacerbation although there is some concern about the significance of aortic stenosis and her weakness event. maintained on aspirin carvedilol and Entresto. Diuretics are held the fact that she will need some hydration given her rhabdomyolysis. #Rhabdomyolysis this is mild we will hydrate her her kidney function shows acute kidney injury on chronic kidney disease stage III. #Leukocytosis. Patient been given Rocephin for possible urinary tract infection pending results of urinalysis and culture. #Pituitary adenoma this is slightly noticed on the 2019 MRI scan noted to be 2 mm Heparin is used for DVT prevention. Admission and Anticipated Discharge Date Admission Date: March 07, 2025 Subjective Patient feels improved still is not gone out of bed still has pain to her left shoulder and back. We discussed her significant severe aortic stenosis and elevation of cardiac enzymes she wishes to proceed with aggressive evaluation subsequently will involve cardiology with a consultation on 03/09. Physical Exam Physical Exam: The patient appeared well nourished and normally developed. Vital signs as documented. Head exam is normocephalic atraumatic Neck is without JVD, thyromegaly, or carotid bruits. Lungs are clear to auscultation, no focal loss of breath sounds Cardiac exam, Rhythm is regular..MIHIR Abdominal exam reveals normal bowel sounds, soft non tender, no masses Extremities are nonedematous and both pedal pulses are present Neurologic exam is alert and oriented, no focal loss of strength or sensation Skin is with pressue type bruises on shoulder and back along with a few on her legs Psychologically is without concerns for anxiety or depression.. Results & Data Results & Data Vital Signs (Past 12 Hours) Vital Signs Temp Pulse Resp BP Pulse Ox O2 Del Method 03/08/25 03:31 98.1 F 90 18 100/61 90 Room Air 03/07/25 22:47 97.9 F 90 18 101/61 92 Room Air Laboratory Results Echocardiogram reviewed with decreased ejection fraction to 20% from 40% with akinesis of the mid to distal inferoseptal and global reduction of function Reviewed CBC reviewed chemistry reviewed troponin reduction to 7000 PG Care Time/CCT Total # of Minutes Spent Total Time Spent with Patient: Total time spent is greater than 50% in coordination of care (as documented) at patient's floor/unit and/or counseling patient: Coding Level of Care Code 67118 SUB INP/OBS CARE 3/50MIN Diagnoses NSTEMI (non-ST elevated myocardial infarction) I21.4 Rhabdomyolysis M62.82 Chronic kidney disease, stage 3a N18.31 Pituitary adenoma D35.2 Hypothyroidism E03.9
[2025-03-08 09:43] LABS: Hematocrit (blood only) 34.4 % (37.0-47.0); Hemoglobin 11.4 g/dl (12.0-16.0); Mean Corpuscular Hemoglobin 31.4 pg (25.0-34.0); Mean Corpuscular Volume 94.8 fL (80.0-100.0); Platelet Count 164 K/uL (130-400); RDW Standard Deviation 44.9 fL (36.4-46.3); Red Blood Count 3.63 M/uL (4.20-5.40); White Blood Count 14.11 K/ul (4.8-10.8)
[2025-03-08 10:03] LABS: Anion Gap 7.0 (3-11); Blood Urea Nitrogen 39.0 mg/dl (6-23); Calcium 8.2 mg/dl (8.6-10.3); Carbon Dioxide 23.0 mmol/L (21-32); Chloride 111.0 mmol/L (98-107); Creatinine Clr Calc Pharmacy 32.3 ml/min; Glucose 118.0 mg/dl (70-99(Fasting)); Potassium 3.5 mmol/L (3.5-5.1); Sodium 141.0 mmol/L (136-145)
[2025-03-08] MEDS: SYNTHROID 75 MCG EXT SCH (20:15)
[2025-03-08] MEDS: [UNRECOGNIZED DRUG - OTHER] PO SCH (20:18)
[2025-03-08] MEDS: FORMULA 303 PO SCH (20:18)
[2025-03-08] MEDS: LORATADINE 10MG PO SCH (20:22)
--- NOTE | 2025-03-09 05:26 | Electrocardiogram Report ---
Test Reason : Blood Pressure : */* mmHG Vent. Rate : 91 BPM Atrial Rate : * BPM P-R Int : * ms QRS Dur : 130 ms QT Int : 418 ms P-R-T Axes : * -7 157 degrees QTcB Int : 514 ms Poor data quality, interpretation may be adversely affected Possible Sinus rhythm Left bundle branch block Abnormal ECG When compared with ECG of 29-Apr-2020 13:54, Artifact is now present Confirmed by Liu Arita ([id number]) on 03/09/2025 5:26:08 AM Referred By: Confirmed By: Liu Arita
[2025-03-09 06:41] LABS: Anion Gap 6.0 (3-11); Blood Urea Nitrogen 35.0 mg/dl (6-23); Calcium 8.1 mg/dl (8.6-10.3); Carbon Dioxide 22.0 mmol/L (21-32); Chloride 112.0 mmol/L (98-107); Creatinine Clr Calc Pharmacy 37.3 ml/min; Glucose 104.0 mg/dl (70-99(Fasting)); Potassium 3.7 mmol/L (3.5-5.1); Sodium 140.0 mmol/L (136-145)
[2025-03-09] MEDS: VITAMIN D3 PO SCH (09:29)
[2025-03-09] MEDS: OMEGA-3 (PURIFIED FISH OIL) 1 GM CAP PO SCH (09:30)
[2025-03-09] MEDS: PSYLLIUM HUSK 4GM PACKET PO SCH (09:30)
[2025-03-09] MEDS: LORATADINE 10 MG TAB PO SCH (09:32)
--- NOTE | 2025-03-09 16:11 | Cardiology Consultation ---
Date of Consultation March 09, 2025 Assessment & Plan (1) NSTEMI (non-ST elevated myocardial infarction): (2) Aortic stenosis: (3) Heart failure with reduced ejection fraction: (4) Cardiomyopathy: (5) Hyperlipidemia: Plan ASSESSMENT/PLAN: 1. NSTEMI: She did not present with acute coronary syndrome and has not had any angina with her mechanical fall or since then. Likely due to demand ischemia in the setting of known severe aortic stenosis and possibly underlying CAD. We discussed potential evaluation, in the setting of significant aortic stenosis and cardiomyopathy. We discussed the possibility of coronary angiography. After discussion, she does not wish for invasive measures and rather conservative management. Continue aspirin 81 mg if no contraindication. Continue beta-tristen. 2. Aortic stenosis: We discussed natural history of aortic stenosis, which is now severe. Her exertional chest discomfort that she has on occasion at home could be related to aortic stenosis, or possibly underlying CAD. We discussed aortic valve replacement including TAVR. She is not interested in such measures and prefers a more conservative approach, allowing nature to take its course. We discussed the fact that aortic stenosis can be fatal and she acknowledged t hat she is comfortable with this decision. 3. Cardiomyopathy: History of cardiomyopathy and LV systolic function now severely reduced, which has been the case in the past as well, but more recently moderately reduced. Reduction in LV systolic function could be due to worsening valvular disease with her aortic stenosis, underlying CAD, LBBB, acute event where she was on the ground for approximately 16 hours, or other etiology. Continue GDMT which can be cautiously uptitrated in the outpatient setting if tolerated. We discussed indications for ICD for primary prevention and increased risk of ventricular arrhythmia in the setting of severely reduced LV systolic function. She does not wish to have ICD placed, but again rather conservative measures. 4. Chronic heart failure with reduced EF: Has been managed in the outpatient setting. She appears euvolemic. Would recommend resuming her outpatient Lasix when okay from a primary hospital standpoint following her rhabdomyolysis. Cont inue Entresto and carvedilol. Has not tolerated spironolactone. Consider SGLT2 inhibitor in the outpatient setting. Low-sodium diet, less than 2000 mg daily. Daily weights. 5. Dyslipidemia: She has declined statin therapy per outpatient notes. 6. Disposition: Cardiology will sign off at this time. Please call with any further questions or concerns. Follow up with Dr. Espinoza in the outpatient setting upon discharge. Patient care communicated with Dr. Hill of the primary hospitalist service. Highly complex medical issues. Thank you for allowing me to participate in the care of your patient. Please call for any other questions or concerns. Sincerely, Arash Arita M.D. History of Present Illness Reason for Consultation: aortic stenosis, reduced EF, elevated troponin Requesting Physician: Tera Hill MD Attending Physician: Tera Hill MD History of Present Illness Ms. Qureshi is a very pleasant 84-year-old female with a history significant for aortic stenosis, heart failure with reduced EF, cardiomyopathy, dyslipidemia, hypertension, and poliomyelitis. Her primary wire rope sales representative is Dr. Espinoza. She was hospitalized on 03/07/2025 after a mechanical fall. She was taking a shower and states that she slipped while standing up within the shower. She fell to the ground and was unable to get up until she was found approximately 16 hours later. She denies any syncope, near syncope, chest pain, shortness of breath, or palpitations during the event or while laying on the ground. She had occasional nausea while in the ground and admits that she was very distressed wondering if she would ever be found. On presentation, her high-sensitivity troponin was elevated at 10,544, which was also the peak. She had an echo which demonstrated severely reduced LV systolic function and severe aortic stenosis. Her creatinine was mildly elevated from baseline and she was diagnosed with rhabdomyolysis. She feels much better but remains weak. She states that she has had occasional substernal chest discomfort which she calls "indigestion" when she is getting ready for bed in the evenings on occasion. It does not happen regularly. Symptoms resolve when she lays down. This particular symptom is not related to food. She denies edema, melena, hematochezia, or other bleeding. She had reported to the primary hospitalist service, Dr. Hill, that she would like to proceed with "aggressive evaluation" in regards to her cardiac issues. Review of systems: As above. Family history: Several family members with cardiac issues. Social history: She denies tobacco, alcohol, or drug abuse. She has never been . No children. She lives alone. She has a sister in [place]. She has caring neighbors and her neighbor, Madhuri, was present at the bedside. Allergies Allergy/AdvReac Type Severity Reaction Status Date / Time levothyroxine Allergy Severe Generic Unverified 03/07/25 13:37 caused nose bleed, name brand works perfectly acetaminophen Allergy Unknown DIZZINESS/D Verified 03/07/25 13:37 IAPHORETIC amlodipine Allergy Unknown SWOLLEN Verified 03/07/25 13:37 LEGS clonidine Allergy Unknown "VARIETY Verified 03/07/25 13:37 OF COMPLICATIONS" latex Allergy Unknown RASH Verified 03/07/25 13:37 losartan Allergy Unknown "MULTIPLE Verified 03/07/25 13:37 PROBLEMS" spironolactone Allergy Unknown "MULTIPE Verified 03/07/25 13:37 PROBLEMS", COULD NOT TOLERATE terazosin Allergy Unknown SWOLLEN Verified 03/07/25 13:37 LEGS hydrochlorothiazide AdvReac Unknown "COULD NOT Verified 03/07/25 13:37 TOLERATE" lisinopril AdvReac Unknown Per PT Verified 03/07/25 13:37 raised BP metoprolol AdvReac Unknown COULD NOT Verified 03/07/25 13:37 TOLERATE Sulfa (Sulfonamide AdvReac Unknown "COULD NOT Verified 03/07/25 13:37 Antibiotics) TOLERATE" Home Medications Medication Instructions Recorded Confirmed Type cannabidiol 100 mg/mL oral solution 25 mg PO DAILY PRN Pain 09/12/19 03/07/25 History [id number] 1 drp ophthalmic (eye) DAILY PRN 03/0 09/0103/07/25 History 80 0.5 %-1 %-0.5 % eye drops Dry Eyes (Refresh Optive Advanced) sodium chloride 0.65 % nasal spray 1 spray intranasal BID PRN Nasal 04/03/20 03/07/25 History aerosol ([place] Saline) Congestion psyllium husk 0.52 gram capsule 0.52 g PO DAILY 09/14/20 03/07/25 History (Fiber-Caps (psyllium husk)) carvedilol 6.25 mg tablet 6.25 mg PO BID #180 tabs 04/01/24 03/07/25 Rx furosemide 40 mg tablet (Lasix) 40 mg PO BID #180 tabs 04/01/24 03/07/25 Rx sacubitril 49 mg-valsartan 51 mg 1 tab PO BID #180 tabs 07/18/24 03/07/25 Rx tablet (Entresto) aspirin 81 mg tablet,delayed 81 mg PO Q OTHER DAY 09/30/24 03/07/25 History release magnesium oxide 400 mg (241.3 mg 400 mg PO BID #60 tabs 09/30/24 03/07/25 Rx magnesium) tablet potassium chloride 10 mEq 10 meq PO BID #60 tabs 09/30/24 03/07/25 Rx tablet,extended release(part/cryst) (Klor-Con M) Lactobacillus acidophilus 1,000 mmu cells PO DAILY 03/07/25 03/07/25 History ascorbic acid (vitamin C) 250 mg 250 mg PO QDL 03/07/25 03/07/25 History chewable tablet (Vitamin C) elderberry fruit 350 mg capsule 350 mg PO QDL 03/07/25 03/07/25 History levothyroxine 75 mcg tablet 75 mcg PO DAILYBB 03/07/25 03/07/25 History (Synthroid) omega 3 350 mg-dha 235 mg-epa 90 1 cap PO QDL 03/07/25 03/07/25 History mg-fish oil 597 mg capsule,delay rel (Hague-3) turmeric root extract 150 1 tab PO QDL 03/07/25 03/07/25 History mg-lori root extract 25 mg chewable tablet Problem List (Updated 03/09/25 @ 19:22 by Liu Arita MD) Heart failure with reduced ejection fraction DONALD (acute kidney injury) (Acute) Acidosis, lactic (Acute) Pressure sore (Acute) Rhabdomyolysis (Acute) Weakness (Acute) Acute non-ST elevation myocardial infarction (NSTEMI) (Acute) Rhabdomyolysis NSTEMI (non-ST elevated myocardial infarction) Statin declined Back pain of thoracolumbar region Unsteady gait when walking Aortic stenosis Chronic pain Chronic kidney disease, stage 3a Bilateral edema of lower extremity (Acute) Pituitary abnormality Chronic systolic CHF (congestive heart failure) EF 30-35%. Now on Entresto, following with [facility] cardio and CHF clinic. Medications still being titrated, will have f/u echo once medications are fully optimized. Hypertension (Chronic) Hypothyroidism (Chronic) Hypokalemia Scoliosis (Acute) Hyperlipidemia (Acute) refuses treatment, using supplements Encounter for long-term (current) use of high-risk medication (Acute) Complete left bundle branch block (Acute) Hypokalemia (Acute) Hypomagnesemia (Acute) Left ventricular dysfunction Underweight Pituitary adenoma Generalized weakness (Acute) Cardiomyopathy Mitral regurgitation Osteoarthritis Hyponatremia chronic, baseline sodium low 130's- PCP aware/feel related to chlorthalidone and supplements but d/t multiple allergies will continue with chlorthalidone and monitor hyponatremia Patient History Medical History Hypothyroidism Cardiac murmur Moderate MR on echo 11/11/19 CHF (congestive heart failure) CHF hospitalization 10/2019 [place] -- follows w/ Dr. Espinoza Personal history of poliomyelitis age 12 Urinary incontinence Hypertension Surgical History Status post reverse arthroplasty of right shoulder (~03/2020) S/P hip replacement right History of cataract surgery left Hx of eye surgery lens replacement on 09/22/19 Family History Father Myocardial infarction Other No family history of adverse response to anesthesia Denies family history of Ovarian cancer Prostate cancer Breast cancer Colorectal cancer Social History Smoking Status: Never smoker Second Hand Exposure: No; Do You Dip or Chew Tobacco: No; Hx Alcohol Use: No Hx Substance Use: No Preferred Language: Amharic Communication Ability: Effective Visual Impairment: Limited Hearing Ability: Normal Outpatient Surgery Rn Required: No Beliefs That Will Affect Care: None marital status: Single Current Living Situation: Alone Current Living Situation Comment: family will come and visit current occupational status: retired How many Children do You have: 0 Feels Safe at Home: Yes Childhood Exposure to Second-Hand Smoke: Yes Diet: regular caffeine: Yes Dental Care, Regularly: Yes Physical Activity Frequency: Does not Exercise Seatbelt Use: always Sunscreen Use: No Assistive Devices: Cane, Raised Toilet Seat and Walker Physical Exam Physical Exam: Gen.: No acute distress. Alert. HEENT: Anicteric sclera. Neck: No JVD. Bilateral bruits vs radiation of cardiac murmur. Normal carotid up strokes bilaterally. Cardiac: Regular. Normal S1-S2. 2/6 mid-late peaking systolic ejection murmur heard best at right upper sternal border. No rubs or gallops. Pulmonary: Decreased breath sounds bilaterally, but otherwise clear to auscultation bilaterally without wheezes, rales, or rhonchi. Abdomen: Soft, nontender, nondistended, with normoactive bowel sounds. No bruits noted. Extremities: 2+ radial pulses bilaterally. 2+ posterior tibialis pulses bilaterally. No significant pitting edema or cyanosis. Results & Data Vital Signs (Past 12 Hours) Vital Signs Temp Pulse Pulse Resp BP Pulse Ox O2 Del Method 03/09/25 15:49 36.4 C L 74 17 109/65 95 Room Air 03/09/25 11:38 36.6 C 85 18 108/70 94 Room Air 03/09/25 07:54 36.7 C 89 18 108/61 94 Room Air 03/09/25 06:00 90 Intake & Output 03/07/25 03/08/25 03/09/25 03/10/25 06:59 06:59 06:59 06:59 Intake Total 3528.667 / 3528.667 1290 / 1290 530 / 530 Output Total 400 / 400 800 / 800 2 / 2 Balance 3128.667 / 3128.667 490 / 490 528 / 528 Weight 120 lb 9.486 oz 122 lb 9.232 oz Laboratory Results Laboratory Results - last 24 hr 03/09/25 05:35 Sodium 140 Potassium 3.7 Chloride 112 H Carbon Dioxide 22 Anion Gap 6 BUN 35 H Creatinine 0.77 Est Cr Clr Drug Dosing 37.3 eGFR 76.49 BUN/Creatinine Ratio 45.5 H Glucose 104 H Calcium 8.1 L Diagnostic Findings Telemetry personally reviewed: Sinus rhythm with PVCs and ventricular triplets. No sustained arrhythmia. Echo 03/07/2025: Normal LV size. EF 20-25%. Akinesis of the mid to distal inferoseptum, mid to distal inferior, mid inferolateral, mid anteroseptal, and apical wall segments. Otherwise, global hypokinesis. Mild LVH. Normal RV size and systolic function. Severe aortic stenosis with trace AI. Mild to moderate MR. RVSP 59. Compared to 09/29/2024 study, LV systolic function has mildly declined. ECG personally reviewed 03/07/2025: Artifact. Possible sinus rhythm. LBBB. Blood cultures negative x 2 from 03/07/2025. Labs reviewed and notable for elevated high-sensitivity troponin with peak value 10,544 (on presentation), improved renal function, normal potassium, normal TSH, mild anemia, improving leukocytosis. Head CT 03/07/2025: No acute intracranial findings per radiology. Chest x-ray 03/07/2025: Mild patchy left basilar densities per radiology. Trace pleural effusions. Outpatient cardiology note reviewed. Medications Administered Current Inpatient Medications Acetaminophen (Acetaminophen 325 Mg Tab) 650 mg PO Q4H PRN PRN Reason: Pain or Fever Stop: 04/06/25 17:09 Al Hydrox/Mg Hydrox/Simethicone (Aluminum/Magnesium Susp 30 Ml Udc) 15 ml PO Q4H PRN PRN Reason: Dyspepsia Stop: 04/06/25 17:09 Artificial Tears (Artificial Tears) 1 drops OP DAILY PRN PRN Reason: Dry Eyes Stop: 04/06/25 17:12 Aspirin (Aspirin 81 Mg Ectab) 81 mg PO Q2D@0900 AYO Stop: 04/06/25 17:09 Last Admin: 03/09/25 09:31 Dose: 81 mg Carvedilol (Carvedilol 6.25 Mg Tab) 6.25 mg PO BID AYO Stop: 04/06/25 20:59 Last Admin: 03/09/25 09:31 Dose: 6.25 mg Fish Oil (Hague-3 (Purified Fish Oil) 1 Gm Cap) 1 cap PO QDL AYO Stop: 04/08/25 11:29 Last Admin: 03/09/25 09:30 Dose: 1 cap Heparin Sodium (Porcine) (Heparin Sod 5,000 Unit/0.5 Ml Vial) 5,000 units SQ Q12 AYO Stop: 04/06/25 20:59 Last Admin: 03/09/25 09:39 Dose: 5,000 units Ceftriaxone Sodium (Rocephin) 1,000 mg in 50 mls @ 100 mls/hr IV Q24H AYO Stop: 03/12/25 17:59 Last Infusion: 03/08/25 18:36 Dose: Infused Loratadine (Loratadine 10 Mg Tab) 10 mg PO QAM AYO Stop: 04/08/25 08:59 Last Admin: 03/09/25 09:32 Dose: Not Given Menthol (Cough Drop (Sugar Free) Tramaine 24 Tramaine/1 Box) 1 tramaine BUCCAL Q2H PRN PRN Reason: Sore Throat Stop: 04/07/25 00:47 Nitroglycerin (Nitroglycerin Sl 0.4 Mg/Tab Tab) 0.4 mg SL Q5M PRN PRN Reason: Chest Pain Stop: 04/06/25 17:09 Synthroid 75 Mcg 1 each EXT DAILYBB AYO Stop: 04/07/25 18:44 Last Admin: 03/09/25 06:51 Dose: 1 each Vitamin Xl D3 5000u 1 each PO DAILY AYO Stop: 04/08/25 08:59 Last Admin: 03/09/25 09:29 Dose: 5,000 units Loratadine 10mg 1 each PO AMHS AYO Stop: 04/07/25 20:59 Last Admin: 03/09/25 09:33 Dose: Not Given Formula 303 1 each PO AMHS AYO Stop: 04/07/25 20:59 Last Admin: 03/09/25 09:31 Dose: 1 ea Joint And Muscle (Support) 1 each PO AMHS AYO Stop: 04/07/25 20:59 Last Admin: 03/09/25 09:32 Dose: 1 each Ondansetron HCl (Ondansetron Inj 2 Mg/Ml 2 Ml Vial) 4 mg IV Q6H PRN PRN Reason: Nausea Stop: 04/06/25 17:09 Psyllium Hydrophilic Mucilloid (Psyllium Husk 4gm Packet) 4 gm PO DAILY AYO Stop: 04/08/25 08:59 Last Admin: 03/09/25 09:30 Dose: 4 gm Sacubitril/Valsartan (Valsartan/Sacubitril 51/49 Mg Tab) 1 tab PO BID AYO Stop: 04/06/25 20:59 Last Admin: 03/09/25 09:30 Dose: 1 tab Sodium Chloride (Sodium Chloride 0.65% Na Soln 45 Ml ([place])) 1 sprays NA BID PRN PRN Reason: Nasal Congestion Stop: 04/06/25 17:09 PG Care Time/CCT Total # of Minutes Spent Total Time Spent with Patient: Total time spent is greater than 50% in coordination of care (as documented) at patient's floor/unit and/or counseling patient: Coding Level of Care Code 75263 INT INP/OBS CARE 3/75MIN Diagnoses NSTEMI (non-ST elevated myocardial infarction) I21.4 Aortic stenosis I35.0 Heart failure with reduced ejection fraction I50.20 Cardiomyopathy I42.9 Hyperlipidemia E78.5
--- NOTE | 2025-03-09 17:09 | Hospitalist Progress Note ---
Date of Service March 09, 2025 Assessment & Plan (1) NSTEMI (non-ST elevated myocardial infarction): (2) Rhabdomyolysis: (3) Chronic kidney disease, stage 3a: (4) Pituitary adenoma: (5) Hypothyroidism: Plan 84-year-old female who suffers from heart failure reduced ejection fraction, moderate to severe aortic stenosis, who had a controlled fall in her bathtub 1 day prior to admission and presents with inability get out of her tub. She has some bruising from being in the tub for this long. A troponin of over 10,000 and CK over 2000. She has known coronary issues typically follows with Dr. Espinoza she typically takes carvedilol and Entresto for heart failure reduced ejection fraction (40%) and the last echocardiogram she has moderate-severe aortic stenosis. She has marked leukocytosis and concern for urinary tract infection present on admission. #NSTEMI patiently has markedly elevated troponin. She denies chest pain and has a baseline left bundle branch block. Her echocardiogram shows depressed ejection fraction and persistent severe aortic stenosis her chronic heart failure reduced ejection fraction does not appear to be in acute exacerbation although there is some concern about the significance of aortic stenosis and her weakness event. maintained on aspirin carvedilol and Entresto. Diuretics are held the fact that she will need some hydration given her rhabdomyolysis. After discussion with cardiology, pt wishes to pursue conservative management. #Rhabdomyolysis this is mild we will hydrate her her kidney function shows acute kidney injury on chronic kidney disease stage III. #Leukocytosis. Patient been given Rocephin for possible urinary tract infection pending results of urinalysis and culture. #Pituitary adenoma this is slightly noticed on the 2019 MRI scan noted to be 2 mm will need PT/OT eval prior to going home Heparin is used for DVT prevention. Admission and Anticipated Discharge Date Admission Date: March 07, 2025 Subjective Patient feels improved will need some evaluation to determine if safe to go home or not. We discussed her significant severe aortic stenosis and elevation of cardiac enzymes after discussion with cardiology she opts for medical management Physical Exam Physical Exam: The patient appeared well nourished and normally developed. Vital signs as documented. Head exam is normocephalic atraumatic Neck is without JVD, thyromegaly, or carotid bruits. Lungs are clear to auscultation, no focal loss of breath sounds Cardiac exam, Rhythm is regular..MIHIR Abdominal exam reveals normal bowel sounds, soft non tender, no masses Extremities are nonedematous and both pedal pulses are present Neurologic exam is alert and oriented, no focal loss of strength or sensation Skin is with pressue type bruises on shoulder and back along with a few on her legs Psychologically is without concerns for anxiety or depression.. Results & Data Results & Data Vital Signs (Past 12 Hours) Vital Signs Temp Pulse Pulse Resp BP Pulse Ox O2 Del Method 03/09/25 15:49 97.5 F L 74 17 109/65 95 Room Air 03/09/25 11:38 97.9 F 85 18 108/70 94 Room Air 03/09/25 07:54 98.1 F 89 18 108/61 94 Room Air 03/09/25 06:00 90 PG Care Time/CCT Total # of Minutes Spent Total Time Spent with Patient: Total time spent is greater than 50% in coordination of care (as documented) at patient's floor/unit and/or counseling patient: Coding Level of Care Code 71554 SUB INP/OBS CARE 3/50MIN Diagnoses NSTEMI (non-ST elevated myocardial infarction) I21.4 Rhabdomyolysis M62.82 Chronic kidney disease, stage 3a N18.31 Pituitary adenoma D35.2 Hypothyroidism E03.9
[2025-03-10] MEDS: [UNRECOGNIZED DRUG - OTHER] PO PRN (06:19)
[2025-03-10 08:35] LABS: Hematocrit (blood only) 35.1 % (37.0-47.0); Hemoglobin 12.1 g/dl (12.0-16.0); Mean Corpuscular Hemoglobin 32.1 pg (25.0-34.0); Mean Corpuscular Volume 93.1 fL (80.0-100.0); Platelet Count 177 K/uL (130-400); RDW Standard Deviation 44.7 fL (36.4-46.3); Red Blood Count 3.77 M/uL (4.20-5.40); White Blood Count 11.40 K/ul (4.8-10.8)
[2025-03-10 08:53] LABS: Anion Gap 7.0 (3-11); Blood Urea Nitrogen 28.0 mg/dl (6-23); Calcium 8.5 mg/dl (8.6-10.3); Carbon Dioxide 21.0 mmol/L (21-32); Chloride 110.0 mmol/L (98-107); Creatinine Clr Calc Pharmacy 40.5 ml/min; Glucose 142.0 mg/dl (70-99(Fasting)); Potassium 3.8 mmol/L (3.5-5.1); Sodium 138.0 mmol/L (136-145)
--- NOTE | 2025-03-10 13:18 | Hospitalist Progress Note ---
Date of Service March 10, 2025 Assessment & Plan (1) NSTEMI (non-ST elevated myocardial infarction): (2) Rhabdomyolysis: (3) Chronic kidney disease, stage 3a: (4) Pituitary adenoma: (5) Hypothyroidism: Plan 84-year-old female who suffers from heart failure reduced ejection fraction, moderate to severe aortic stenosis, who had a controlled fall in her bathtub 1 day prior to admission and presents with inability get out of her tub. She has some bruising from being in the tub for this long. A troponin of over 10,000 and CK over 2000. She has known coronary issues typically follows with Dr. Espinoza she typically takes carvedilol and Entresto for heart failure reduced ejection fraction (40%) and the last echocardiogram she has moderate-severe aortic stenosis. She has marked leukocytosis and concern for urinary tract infection present on admission. #NSTEMI patiently has markedly elevated troponin. She denies chest pain and has a baseline left bundle branch block. Her echocardiogram shows depressed ejection fraction and persistent severe aortic stenosis her chronic heart failure reduced ejection fraction does not appear to be in acute exacerbation although there is some concern about the significance of aortic stenosis and her weakness event. maintained on aspirin carvedilol and Entresto. Diuretics are held the fact that she will need some hydration given her rhabdomyolysis. After discussion with cardiology, pt wishes to pursue conservative management. #Cardiomyopathy: Patient with severely reduced left ventricular systolic function, worse than before Underlying CAD, left bundle branch block aortic stenosis Cardiology discussed ICD however she does not wish to have the ICD placed. #Rhabdomyolysis this is mild we will hydrate her her kidney function shows acute kidney injury on chronic kidney disease stage III. #Leukocytosis. Patient been given Rocephin for possible urinary tract infection pending results of urinalysis and culture. #Pituitary adenoma this is slightly noticed on the 2019 MRI scan noted to be 2 mm will need PT/OT eval prior to going home Heparin is used for DVT prevention. Disposition: Patient worked with physical therapy and they recommended rehab, however patient is adamant she wants to go home. She lives by herself Admission and Anticipated Discharge Date Admission Date: March 07, 2025 Subjective Patient seen and examined this morning, says she feels overall better stronger Review of Systems Review of Systems: All systems reviewed are negative, apart from the ones contained in the history. Physical Exam Physical Exam: The patient is awake, alert and oriented 3, well developed and well nourished, normocephalic and atraumatic, lying in bed and in no acute distress. HEENT--PERRL, EOMI, mucous membranes and oropharynx mildly dry Neck--supple. No JVD. No bruits. Thyroid normal, trachea midline, no adenopathy. Heart--normal S1 and S2. Systolic murmur Lungs--clear bilaterally, no respiratory distress, no accessory muscle use. Abdomen--normal bowel sounds and soft. Extremities--no cyanosis or clubbing. No edema. Dermatologic--normal skin turgor, normal color, no abnormal lymph nodes, no rash. Neurologic--cranial nerves II through XII grossly intact. Rheumatologic--normal range of motion. Psychiatric--normal affect. Results & Data Results & Data Vital Signs (Past 12 Hours) Vital Signs Temp Pulse Pulse Resp BP Pulse Ox O2 Del Method 03/10/25 11:29 98.1 F 86 18 100/60 97 Room Air 03/10/25 08:00 98.2 F 82 18 114/57 L 97 Room Air 03/10/25 07:45 Room Air 03/10/25 05:35 83 03/10/25 04:01 98.1 F 82 18 106/68 98 Room Air PG Care Time/CCT Total # of Minutes Spent Total Time Spent with Patient: Total time spent is greater than 50% in coordination of care (as documented) at patient's floor/unit and/or counseling patient: Coding Level of Care Code 60357 SUB INP/OBS CARE 2/35MIN Diagnoses NSTEMI (non-ST elevated myocardial infarction) I21.4 Rhabdomyolysis M62.82 Chronic kidney disease, stage 3a N18.31 Pituitary adenoma D35.2 Hypothyroidism E03.9 Time Spent (min) 35
[2025-03-10 19:46] VITALS: RESP 18
[2025-03-11 07:12] LABS: Anion Gap 5.0 (3-11); Blood Urea Nitrogen 28.0 mg/dl (6-23); Calcium 8.1 mg/dl (8.6-10.3); Carbon Dioxide 22.0 mmol/L (21-32); Chloride 110.0 mmol/L (98-107); Creatinine Clr Calc Pharmacy 46.3 ml/min; Glucose 97.0 mg/dl (70-99(Fasting)); Potassium 3.8 mmol/L (3.5-5.1); Sodium 137.0 mmol/L (136-145)
[2025-03-11 07:52] VITALS: O2SAT 98
--- NOTE | 2025-03-11 10:26 | Discharge Summary ---
Date of Service March 11, 2025 Admission HPI Per Admitting Provider The patient is an 84-year-old female who presented to the emergency department for an evaluation after a controlled fall in her tub being unable to get up for over 12 hours She did not fall completely but slid to the bottom of the tub. This occurred at 4 PM 03/06/25. The patient denies having any chest pain or difficulty breathing. She does complain of lower extremity numbness because she states she was uncomfortable in the tub. She was noted to have pressure injuries by the prehospital personnel. The patient states that she has not been able to take any of her morning medications. She has a history of HFrEF and severe , she also takes a diuretic and some otc Cannabinoid medication she has a troponin of 10,000 and CK of 2000, she has mild ovi on ckd3, imaging does not show a fracture, she has a leukocytosis and abnormal urine on admission Admission Exam (Per Admitting) Constitutional The patient is awake, alert and oriented 3, well developed and well nourished, normocephalic and atraumatic, lying in bed and in no acute distress. HEENT--PERRL, EOMI, mucous membranes and oropharynx mildly dry Neck--supple. No JVD. No bruits. Thyroid normal, trachea midline, no adenopathy. Heart--normal S1 and S2. No murmurs, rubs or gallops. Lungs--clear bilaterally, no respiratory distress, no accessory muscle use. Abdomen--normal bowel sounds and soft. Extremities--no cyanosis or clubbing. No edema. Dermatologic--normal skin turgor, normal color, no abnormal lymph nodes, no rash. Neurologic--cranial nerves II through XII grossly intact. Rheumatologic--normal range of motion. Psychiatric--normal affect. Discharge Data Consultations 03/07/25 13:22 ED Decision to Admit Stat 03/08/25 18:49 Consult Cardiology Routine Hospital Course (1) NSTEMI (non-ST elevated myocardial infarction): (2) Rhabdomyolysis: (3) Chronic kidney disease, stage 3a: (4) Pituitary adenoma: (5) Hypothyroidism: Plan 84-year-old female who suffers from heart failure reduced ejection fraction, moderate to severe aortic stenosis, who had a controlled fall in her bathtub 1 day prior to admission and presents with inability get out of her tub. She has some bruising from being in the tub for this long. A troponin of over 10,000 and CK over 2000. She has known coronary issues typically follows with Dr. Espinoza she typically takes carvedilol and Entresto for heart failure reduced ejection fraction (40%) and the last echocardiogram she has moderate-severe aortic stenosis. She has marked leukocytosis and concern for urinary tract infection present on admission. #NSTEMI patiently has markedly elevated troponin. She denies chest pain and has a baseline left bundle branch block. Her echocardiogram shows depressed ejection fraction and persistent severe aortic stenosis her chronic heart failure reduced ejection fraction does not appear to be in acute exacerbation although there is some concern about the significance of aortic stenosis and her weakness event. maintained on aspirin carvedilol and Entresto. Diuretics are held the fact that she will need some hydration given her rhabdomyolysis. After discussion with cardiology, pt wishes to pursue conservative management. #Cardiomyopathy: Patient with severely reduced left ventricular systolic function, worse than before Underlying CAD, left bundle branch block aortic stenosis Cardiology discussed ICD however she does not wish to have the ICD placed. #Rhabdomyolysis this is mild we will hydrate her her kidney function shows acute kidney injury on chronic kidney disease stage III. #Leukocytosis. Patient been given Rocephin for possible urinary tract infection pending results of urinalysis and culture. #Pituitary adenoma this is slightly noticed on the 2019 MRI scan noted to be 2 mm will need PT/OT eval prior to going home Heparin is used for DVT prevention. Disposition: Patient worked with physical therapy and they recommended rehab, however patient is adamant she wants to go home. She lives by herself, she insisted on going home. will d/c her home with home health and PT Coding Level of Care Code 26912 INP/OBS DISCH >30 MIN Diagnoses NSTEMI (non-ST elevated myocardial infarction) I21.4 Rhabdomyolysis M62.82 Chronic kidney disease, stage 3a N18.31 Pituitary adenoma D35.2 Hypothyroidism E03.9 Time Spent (min) 35
[2025-03-11 11:04] VITALS: BP 101/57; PULSE 85; TEMP 97.9
== END 2025-03-11 16:10 | disposition home health service (06) | DRG 281 ==
LOC: ED 11:04 → 2S 13:59 → SUATTDRO 13:59 → 2S 15:05